=== PATIENT | female | born 1930 | race Hispanic/Latino ===

== ENCOUNTER 2017-03-09 09:34 | Emergency (ER) | payer MEDICARE ==
[2017-03-09 09:46] VITALS: BP 142/56; PULSE 52; RESP 19; TEMP 98.9; O2SAT 95
--- NOTE | 2017-03-09 14:24 | US ---
PROCEDURE: Duplex ultrasound of the left lower extremity arteries. HISTORY: No DP, PT pulses COMPARISON: None available. TECHNIQUE: Grayscale and duplex Doppler evaluation of the left common femoral, superficial femoral, popliteal, posterior tibial and dorsalis pedis arteries was performed.. FINDINGS: COMMON FEMORAL ARTERY: Patent. Maximal flow velocity of 130.6 cm/s. SUPERFICIAL FEMORAL ARTERY:Patent. Maximal flow velocity of 146.5 cm/s. POPLITEAL ARTERY:Patent. Maximal flow velocity of 104.9 cm/s. POSTERIOR TIBIAL ARTERY: Patent. Maximal flow velocity of 106.9 cm/s. DORSALIS PEDIS ARTERY: Patent. Maximal flow velocity of 140.6 cm/s. OTHER FINDINGS: None. IMPRESSION: Mildly elevated peak systolic velocities both proximally within AGENCY SERVICE COORDINATOR and SFA as well as distally in the dorsalis pedis artery although no critical stenoses identified. Spectral broadening and monophasic waveforms seen throughout the visualized left lower extremity.
--- NOTE | 2017-03-09 14:31 | ED PDOC ---
Lower Extremity Pain/Injury Time Seen by Provider: 03/09/17 10:16 Chief Complaint (Nursing): Lower Extremity Problem/Injury Chief Complaint (Provider): Left lower leg pain x 1 month History Per: Patient, Family (Son) History/Exam Limitations: no limitations Onset/Duration Of Symptoms: Days Current Symptoms Are (Timing): Still Present Severity: Moderate Pain Scale Rating Of: 8 Additional Complaint(s): Pt states she was seen by her PMD and sent to a vascular surgeon. She states she was told to take NSAIDs and use compression stocking. Pt states the mediation is not helping her pain and the pain is so bad she is unable to put the stockings on. Pt saw the vascular specialist and told to come to the ER for arterial duplex of the left lower leg. Pt states she was seen in ER a few weeks ago and US of the vein was normal. No acute worsening pain. Past Medical History Reviewed: Historical Data, Nursing Documentation, Vital Signs Vital Signs: Last Vital Signs Temp 98.9 F 03/09/17 09:45 Pulse 52 L 03/09/17 09:45 Resp 19 03/09/17 09:45 BP 142/56 L 03/09/17 09:45 Pulse Ox 95 03/09/17 09:45 - Medical History PMH: CAD, HTN, Hypercholesterolemia, Hypothyroidism Denies: Chronic Kidney Disease - Surgical History Surgical History: No Surg Hx - Family History Family History: States: Unknown Family Hx - Living Arrangements Living Arrangements: With Family - Social History Current smoker - smoking cessation education provided: No Alcohol: None Drugs: Denies - Home Medications Home Medications: Ambulatory Orders Medication Instructions Recorded Alendronate [Fosamax] 70 mg PO QWK 11/07/14 Ca Pantothenate/Folic Acid/V [Once 1 tab PO DAILY 11/07/14 Daily Multi-Vitamin] Calcitriol 0.25 mcg PO TID 11/07/14 Calcium/Vitamin D [Calcium + D 600 1 tab PO BID 11/07/14 mg-200 Iu] Gabapentin [Neurontin] 100 mg PO HS 11/07/14 Levothyroxine [Synthroid] 100 mcg PO DAILY 11/07/14 Metoprolol Tartrate [Lopressor] 25 mg PO BID 11/07/14 Omeprazole [Prilosec] 20 mg PO DAILY PRN 11/07/14 Orlistat [Xenical] 120 mg PO HS 11/07/14 Simvastatin 10 mg PO HS 11/07/14 amLODIPine [Norvasc] 5 mg PO DAILY 11/07/14 Aspirin [Ecotrin] 81 mg PO DAILY #0 tabec 11/14/14 Benzonatate [Tessalon Perles] 100 mg PO TID PRN #0 sgl 11/14/14 Promethazine/Codeine 10 ml PO Q6 PRN #0 udc 11/14/14 [Phenergan/Codeine Oral Syrup] Oseltamivir [Tamiflu] 75 mg PO BID #10 cap 07/04/15 Sulfamethoxazole/Trimethoprim 1 tab PO BID #14 tab 07/04/15 [Bactrim DS 800 mg-160 mg] Cephalexin [Keflex] 500 mg PO TID #21 capsule 01/03/16 Ibuprofen [Motrin Tab] 600 mg PO Q6 PRN #15 tab 01/03/16 traMADol [Ultram] 50 mg PO Q6H PRN #15 tab 03/09/17 - Allergies Allergies/Adverse Reactions: Allergies Allergy/AdvReac Type Severity Reaction Status Date / Time No Known Allergies Allergy Verified 07/04/15 21:54 Review of Systems ROS Statement: Except As Marked, All Systems Reviewed And Found Negative Constitutional: Negative for: Fever, Chills Cardiovascular: Negative for: Chest Pain, Palpitations Respiratory: Negative for: Cough, Shortness of Breath Gastrointestinal: Negative for: Nausea, Vomiting Musculoskeletal: Positive for: Leg Pain (mild swelling ). Negative for: Neck Pain Skin: Negative for: Rash Physical Exam - Reviewed Nursing Documentation Reviewed: Yes Vital Signs Reviewed: Yes - Physical Exam Appears: Positive for: Well, Non-toxic, No Acute Distress Head Exam: Positive for: ATRAUMATIC, NORMAL INSPECTION, NORMOCEPHALIC Skin: Positive for: Normal Color, Warm, DRY Eye Exam: Positive for: Normal appearance ENT: Positive for: Normal ENT Inspection Neck: Positive for: Normal, Painless ROM Cardiovascular/Chest: Positive for: Regular Rate, Rhythm Respiratory: Positive for: Normal Breath Sounds. Negative for: Accessory Muscle Use, Respiratory Distress Pulses-Dorsalis Pedis (L): 0 Pulses-Post. Tibialis (L): 0 Back: Positive for: Normal Inspection Extremity: Positive for: Normal ROM, Swelling (Mild edema, left lower leg/ankle - No calf tenderness ). Negative for: Tenderness, Deformity Neurologic/Psych: Positive for: Alert, Oriented - ECG O2 Sat by Pulse Oximetry: 95 Pulse Ox Interpretation: Normal Medical Decision Making Medical Decision Making: US report reviewed with Dr. Curtis. Disposition - Clinical Impression Clinical Impression: PVD (peripheral vascular disease) - Patient ED Disposition Is Patient to be Admitted: No Counseled Patient/Family Regarding: Diagnosis, Need For Followup, Rx Given - Disposition Disposition: Routine/Home Disposition Time: 14:31 Condition: GOOD Additional Instructions: Please follow-up with vascular surgeon. Prescriptions: traMADol [Ultram] 50 mg PO Q6H PRN #15 tab PRN Reason: Pain Instructions: Peripheral Vascular Disease (ED)
== END 2017-03-09 14:40 | disposition home or self-care (01) ==
LOC: H.ER 09:34
DX: I73.9 Peripheral vascular disease, unspecified (principal); E78.00 Pure hypercholesterolemia, unspecified; I10 Essential (primary) hypertension; E03.9 Hypothyroidism, unspecified; I25.10 Atherosclerotic heart disease of native coronary artery without angina pectoris; Z79.82 Long term (current) use of aspirin

== ENCOUNTER 2017-04-06 09:05 | Inpatient (IN) | payer MEDICARE ==
[2017-04-06 09:19] VITALS: BMI 24.8
--- NOTE | 2017-04-06 09:46 | ED PDOC ---
HPI: CCC, URI, Sore Throat Time Seen by Provider: 04/06/17 09:27 Chief Complaint (Nursing): Cough, Cold, Congestion Chief Complaint (Provider): Cough, Shortness Of Breath History Per: Patient History/Exam Limitations: no limitations Onset/Duration Of Symptoms: Hrs (x 12) Current Symptoms Are (Timing): Still Present Additional Complaint(s): Jia is an 86 y/o female with a history of peripheral artery disease and asthma who presents to the ED because of coughing since last night with associated shortness of breath. Patient denies fever or chills and notes that her cough is dry. She has no other complaints at this time. PMD: Cosme Hernandez Past Medical History Reviewed: Historical Data, Nursing Documentation, Vital Signs Vital Signs: Last Vital Signs Temp 98.2 F 04/06/17 09:30 Pulse 73 04/06/17 09:30 Resp 18 04/06/17 09:30 BP 180/80 H 04/06/17 09:30 Pulse Ox 99 04/06/17 09:55 - Medical History PMH: CAD, HTN, Hypercholesterolemia, Hypothyroidism Denies: Chronic Kidney Disease - Family History Family History: States: No Known Family Hx - Living Arrangements Living Arrangements: With Family (son) - Social History Current smoker - smoking cessation education provided: No (lives with son who smokes) Alcohol: None Drugs: Denies - Home Medications Home Medications: Ambulatory Orders Medication Instructions Recorded Ca Pantothenate/Folic Acid/V [Once 1 tab PO DAILY 11/07/14 Daily Multi-Vitamin] Calcitriol 0.25 mcg PO TID 11/07/14 Calcium/Vitamin D [Calcium + D 600 1 tab PO BID 11/07/14 mg-200 Iu] Gabapentin [Neurontin] 100 mg PO HS 11/07/14 Levothyroxine [Synthroid] 100 mcg PO DAILY 11/07/14 Metoprolol Tartrate [Lopressor] 25 mg PO BID 11/07/14 Omeprazole [Prilosec] 20 mg PO DAILY PRN 11/07/14 Orlistat [Xenical] 120 mg PO HS 11/07/14 Simvastatin 10 mg PO HS 11/07/14 amLODIPine [Norvasc] 5 mg PO DAILY 11/07/14 Aspirin [Ecotrin] 81 mg PO DAILY #0 tabec 11/14/14 Benzonatate [Tessalon Perles] 100 mg PO TID PRN #0 sgl 11/14/14 Ibuprofen [Motrin Tab] 600 mg PO Q6 PRN #15 tab 01/03/16 traMADol [Ultram] 50 mg PO Q6H PRN #15 tab 03/09/17 Alendronate Sodium [Binosto] 70 mg PO QWK 04/06/17 Celecoxib [CeleBREX] 100 mg PO DAILY 04/06/17 Tramadol HCl/Acetaminophen 1 tab PO DAILY PRN 04/06/17 [Acetaminophen-Tramadol HCl 325 mg-37.5 mg] - Allergies Allergies/Adverse Reactions: Allergies Allergy/AdvReac Type Severity Reaction Status Date / Time No Known Allergies Allergy Verified 07/04/15 21:54 Review of Systems ROS Statement: Except As Marked, All Systems Reviewed And Found Negative Constitutional: Negative for: Fever, Chills Cardiovascular: Negative for: Chest Pain Respiratory: Positive for: Cough (dry), Shortness of Breath Physical Exam - Reviewed Nursing Documentation Reviewed: Yes Vital Signs Reviewed: Yes - Physical Exam Appears: Positive for: No Acute Distress Head Exam: Positive for: ATRAUMATIC, NORMAL INSPECTION, NORMOCEPHALIC Skin: Positive for: Normal Color, Warm, Dry. Negative for: Rash Neck: Positive for: Normal, Painless ROM, Supple Cardiovascular/Chest: Positive for: Regular Rate, Rhythm Respiratory: Positive for: Normal Breath Sounds (good air entry b/l). Negative for: Rales, Wheezing, Respiratory Distress Gastrointestinal/Abdominal: Positive for: Soft. Negative for: Tenderness Extremity: Negative for: Pedal Edema Neurologic/Psych: Positive for: Alert, Oriented. Negative for: Motor/Sensory Deficits - Laboratory Results Result Diagrams: 04/06/17 10:00 04/06/17 10:00 - ECG O2 Sat by Pulse Oximetry: 99 (RA) Pulse Ox Interpretation: Normal Medical Decision Making Medical Decision Making: Time: 9:36 Initial Impression: Cough; Rule out bronchitis, pneumonia Initial Plan: --EKG --BNP --BMP --Troponin --CBC --Chest XR --Flu Swab Scribe Attestation: Documented by Freddie Paredes, acting as a scribe for Dr. Sapna Farmer MD. Provider Scribe Attestation: All medical record entries made by the Scribe were at my direction and personally dictated by me. I have reviewed the chart and agree that the record accurately reflects my personal performance of the history, physical exam, medical decision making, and the department course for this patient. I have also personally directed, reviewed, and agree with the discharge instructions and disposition. 10.30a Troponin 0.3; flu positive; EKG LBBB unchanged from previous; CXR is normal; Case d/w Dr. Guallpa. Admit to telemetry for 24 hours; Case d/w Dr. Henry for admission (covering for Dr. Hernandez) Disposition - Clinical Impression Clinical Impression: Influenza A, Non-STEMI (non-ST elevated myocardial infarction) - Patient ED Disposition Is Patient to be Admitted: Yes Doctor Will See Patient In The: Hospital - Disposition Disposition: Transfer of Care Disposition Time: 11:06 Condition: FAIR Forms: [employer] (Bengali) - Pt Status Changed To: Hospital Disposition Of: Observation - POA Present On Arrival: None
[2017-04-06 10:09] LABS: BASO % 0.6 % (0.0-2.0); EOS # 0.1 K/uL (0.0-0.7); HEMOGLOBIN 14.5 g/dL (12.0-16.0); LYMPH # 0.6 K/uL (1.0-4.3); LYMPH % 10.1 % (20.0-40.0); MEAN CORPUSCULAR HEMOGLOBIN 30.8 pg (27.0-31.0); MEAN CORPUSCULAR HGB CONC 33.9 g/dL (33.0-37.0); MEAN PLATELET VOLUME 8.3 fl (7.2-11.7); MONO # 0.6 K/uL (0.0-0.8); MONO % 10.5 % (0.0-10.0); NEUT # 4.7 K/uL (1.8-7.0); NEUT % 76.8 % (50.0-75.0); RBC 4.72 Mil/uL (3.80-5.20); RED CELL DISTRIBUTION WIDTH 13.1 % (11.5-14.5); WHITE BLOOD COUNT 6.1 K/uL (4.8-10.8)
--- NOTE | 2017-04-06 10:13 | RAD ---
HISTORY: cough, dyspnea COMPARISON: 05/17/2016 TECHNIQUE: Chest PA and lateral FINDINGS: LUNGS: No active pulmonary disease. . No infiltrate PLEURA: No significant pleural effusion identified. No pneumothorax apparent. CARDIOVASCULAR: Cardiomegaly. No gross pulmonary venous congestion. Midline sternotomy and a valve prosthesis noted. Mitral annular calcifications present OSSEOUS STRUCTURES: T10 and T11 anterior osteoporotic type compression fractures without retropulsion of ossific fragments into the posterior spinal canal are suggested. This appearance is stable since 05/17/2016 Midline sternotomy wires in place VISUALIZED UPPER ABDOMEN: Normal. OTHER FINDINGS: None. IMPRESSION: No interval pathology noted
[2017-04-06 10:18] LABS: BLOOD UREA NITROGEN 15 mg/dl (7-17); CALCIUM 8.7 mg/dL (8.4-10.2); GFR AFRICAN-AMERICAN > 60; GFR NON-AFRICAN AMERICAN > 60
[2017-04-06 10:34] LABS: B-TYPE NATRIURETIC PEPTIDE 1990 pg/ml (0-900)
[2017-04-06] MEDS ORDERED: TRAMADOL HCL PO PRN (13:35)
[2017-04-06] MEDS ORDERED: ACETAMINOPHEN PO PRN (13:35)
--- NOTE | 2017-04-06 14:04 | CARD ---
APPROVED REPORT EKG Measurement Heart [id number] <Conclusion> Normal sinus rhythm Left bundle branch block Abnormal ECG
--- NOTE | 2017-04-06 20:20 | CP.PCM.CON ---
History of Present Illness - History of Present Illness History of Present Illness: THE PATIENT IS AN 86 YEAR OLD FEMALE KNOWN TO ME FROM MY OFFICE PRACTICE AND PRIOR [facility] ADMISSIONS. 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 SHE WAS ADMITTED TO [facility] FOR THE FLU IN 2014 AND I WAS CALLED TO SEE HER FOR MILDLY ELEVATED TROPONINS. I WAS CALLED AT THIS TIME FOR THE SAME REASON. SHE HAD NORMAL CORONARY ARTERIES ON HER CARDIAC CATH PRIOR TO HER AVR 5 YEARS AGO AND NEVER HAD A KNOWN UT AND DOESN'T HAVE ANGINA. HER BASELINE LUNG STATUS IS THAT SHE GETS SOB WITH EVEN MINIMAL EXERTION. SHE PRESENTLY STATES THAT FOR ABOUT A WEEK NOW SHE WAS SOB MORE THAN USUAL FOR FOR THE PAST FEW DAYS HAS HAD A COUGH WITH SOME PRODUCTION, TIREDNESS AND SHE HAD A FEVER LAST NIGHT. SHE WASN'T FEELING BETTER TODAY AND WENT TO THE ER FOR THESE COMPLAINTS AND A NOSE SWAB WAS POSITIVE FOR INFLUENZA ANS SHE WAS ADMITTED. Past Patient History - Past Medical History & Family History Past Medical History?: Yes - Past Social History Smoking Status: Never Smoked - CARDIAC Hx Cardiac Disorders: Yes Hx Hypercholesterolemia: Yes Hx Hypertension: Yes - PULMONARY Hx Respiratory Disorders: No - NEUROLOGICAL Hx Neurological Disorder: No - HEENT Hx HEENT Problems: Yes Hx Cataracts: Yes - RENAL Hx Chronic Kidney Disease: No - ENDOCRINE/METABOLIC Hx Hypothyroidism: Yes - HEMATOLOGICAL/ONCOLOGICAL Hx Blood Disorders: No - INTEGUMENTARY Hx Dermatological Problems: No - MUSCULOSKELETAL/RHEUMATOLOGICAL Hx Falls: No Hx Osteoporosis: Yes (with fracture) - GASTROINTESTINAL Hx Gastrointestinal Disorders: No - GENITOURINARY/GYNECOLOGICAL Hx Genitourinary Disorders: No - PSYCHIATRIC Hx Psychophysiologic Disorder: No Hx Substance Use: No - SURGICAL HISTORY Hx Surgeries: Yes Hx Cataract Extraction: Yes Hx Cardiac Catheterization: Yes Hx Joint Replacement: Yes (r hip) Hx Valve Replacement: Yes Other/Comment: cardiac valve replacement - ANESTHESIA Hx Anesthesia: Yes Hx Anesthesia Reactions: No Hx Malignant Hyperthermia: No Meds Allergies/Adverse Reactions: Allergies Allergy/AdvReac Type Severity Reaction Status Date / Time No Known Allergies Allergy Verified 07/04/15 21:54 - Medications Medications: Current Medications Amlodipine Besylate (Norvasc) 5 mg PO DAILY [facility] Calcitriol (Rocaltrol) 0.25 mcg PO TID [facility] Last Admin: 04/06/17 17:34 Dose: 0.25 mcg Calcium/Vitamin D (Oyster Shell Calcium/Vitamin D 500 Mg-200 Iu) 1 tab PO DAILY [facility] Enoxaparin Sodium (Lovenox) 30 mg SC DAILY [facility] PRN Reason: Protocol Gabapentin (Neurontin) 100 mg PO HS [facility] Home Med (Tramadol Hcl/Acetaminophen [Tramadol-Acetaminophn 37.5-325]) 1 tab PO DAILY PRN PRN Reason: Pain, severe (8-10) Levothyroxine Sodium (Synthroid) 100 mcg PO DAILY [facility] Metoprolol Tartrate (Lopressor) 25 mg PO BID [facility] Last Admin: 04/06/17 17:33 Dose: 25 mg Ondansetron HCl (Zofran Inj) 4 mg IVP Q6 PRN PRN Reason: Nausea/Vomiting Oseltamivir Phosphate (Tamiflu Cap) 75 mg PO BID [facility] PRN Reason: Protocol Last Admin: 04/06/17 17:33 Dose: 75 mg Pantoprazole Sodium (Protonix Ec Tab) 40 mg PO DAILY PRN PRN Reason: Heartburn Pneumococcal Polyvalent Vaccine (Pneumovax 23 Vaccine) 0.5 ml IM .ONCE ONE Stop: 04/09/17 09:01 Pravastatin Sodium (Pravachol) 20 mg PO [facility] Physical Exam - Respiratory Exam Additional comments: MILD WHEEZING AND RONCHI BILAT - Cardiovascular Exam Cardiovascular Exam: REGULAR RHYTHM, +S1, +S2 - Extremities Exam Additional comments: NO LE EDEMA - Additional Findings Additional findings: EKG NSR, R 66, LBBB(OLD FINDING) TROPONINS 0.3 AND 0.27 Results - Vital Signs Recent Vital Signs: Last Vital Signs Temp 98.6 F 04/06/17 19:31 Pulse 63 04/06/17 19:31 Resp 20 04/06/17 19:31 BP 166/81 H 04/06/17 19:31 Pulse Ox 96 04/06/17 19:31 - Labs Result Diagrams: 04/06/17 10:00 04/06/17 10:00 Labs: Laboratory Results - last 24 hr 04/06/17 04/06/17 04/06/17 10:00 10:00 10:00 WBC 6.1 RBC 4.72 Hgb 14.5 Hct 42.9 MCV 91.0 MCH 30.8 MCHC 33.9 RDW 13.1 Plt Count 173 MPV 8.3 Neut % (Auto) 76.8 H Lymph % (Auto) 10.1 L [place] % (Auto) 10.5 H Eos % (Auto) 2.0 Baso % (Auto) 0.6 Neut # (Auto) 4.7 Lymph # (Auto) 0.6 L [place] # (Auto) 0.6 Eos # (Auto) 0.1 Baso # (Auto) 0.0 Sodium 141 Potassium 3.9 Chloride 100 Carbon Dioxide 29 Anion Gap 16 BUN 15 Creatinine 0.6 L Est GFR ( Amer) > 60 Est GFR (Non-Af Amer) > 60 Random Glucose 106 H Calcium 8.7 Troponin I 0.3010 H* NT-Pro-B Natriuret Pep 1989 H Influenza Typ A,B (EIA) Pos for influenza a H 04/06/17 18:08 WBC RBC Hgb Hct MCV MCH MCHC RDW Plt Count MPV Neut % (Auto) Lymph % (Auto) [place] % (Auto) Eos % (Auto) Baso % (Auto) Neut # (Auto) Lymph # (Auto) [place] # (Auto) Eos # (Auto) Baso # (Auto) Sodium Potassium Chloride Carbon Dioxide Anion Gap BUN Creatinine Est GFR ( Amer) Est GFR (Non-Af Amer) Random Glucose Calcium Troponin I 0.2740 H* NT-Pro-B Natriuret Pep Influenza Typ A,B (EIA) Assessment & Plan - Assessment and Plan (Free Text) Assessment: INFLUENZA AORTIC AORTIC VALVE REPLACEMENT FOR AORTIC STENOSIS HYPERTENSION HYPERLIPIDEMIA CHRONIC LUNG DISEASE HYPOTHYROIDISM CHRONIC MILDLY ELEVATED TROPONIN MOST LIKELY NON-CARDIAC SHE HAD NORMAL CORONARY ARTERIES ON HER CARDIAC CATH 5 YEARS AGO AND DOESN'T HAVE ANGINA Plan: SHE WAS ADMITTED TO ON TELEMETRY SHE IS ON TAMIFLU, METOPROLOL, AMLODIPINE, PRAVACHOL, LEVOTHYROXINE AND LOVENOX SHE WAS GIVEN ASPIRIN AND BRILINTA IN THE ER WILL CONTINUE ASPIRIN WILL RECOMMEND A PHARMACOLOGICAL STRESS TEST FOR HER IN THE NEAR FUTURE AFTER SHE HAS RECOVERED FROM THE FLU
[2017-04-06] MEDS: Pantoprazole 40 mg EC Tab PO PRN (21:50)
[2017-04-06] MEDS: Pravastatin Sodium 20 MG TAB PO SCH (22:00)
--- NOTE | 2017-04-07 07:42 | CP.PCM.HP ---
<Rik Mccarthy - Last Filed: 04/07/17 07:48> History of Present Illness - History of Present Illness History of Present Illness: 86 year old female presents to the ED with a complaint of shortness of breath. The patient has a past medical history of hypertension, aortic valve replacement , chronic lung disease, and hypothyroidism. The SOB has been present for the past 8-9 months and recently its been getting progressively worse. The patient is able to walk 1 block and starts experiencing SOB. Patient denies any chest pain, nausea, vomiting, or palpitations. PMD: Dr. Cosme Batres Specialist: Dr. hastings- paper plate machine tender Electron Beam Machine Welder Setter: Dr. Barkley FMHx: mother had dementia- ; father had lung cancer- SurgHx: aortic valve replacement, thyroid surgery, right hip surgery 3 years ago SocHx: non smoker, no alcohol, no drugs Medications: were reviewed and reconciled Allergies: NKDA Present on Admission - Present on Admission Any Indicators Present on Admission: No Past Patient History - Past Medical History & Family History Past Medical History?: Yes - Past Social History Smoking Status: Never Smoked - CARDIAC Hx Cardiac Disorders: Yes Hx Hypercholesterolemia: Yes Hx Hypertension: Yes - PULMONARY Hx Respiratory Disorders: No - NEUROLOGICAL Hx Neurological Disorder: No - HEENT Hx HEENT Problems: Yes Hx Cataracts: Yes - RENAL Hx Chronic Kidney Disease: No - ENDOCRINE/METABOLIC Hx Hypothyroidism: Yes - HEMATOLOGICAL/ONCOLOGICAL Hx Blood Disorders: No - INTEGUMENTARY Hx Dermatological Problems: No - MUSCULOSKELETAL/RHEUMATOLOGICAL Hx Falls: No Hx Osteoporosis: Yes (with fracture) - GASTROINTESTINAL Hx Gastrointestinal Disorders: No - GENITOURINARY/GYNECOLOGICAL Hx Genitourinary Disorders: No - PSYCHIATRIC Hx Psychophysiologic Disorder: No Hx Substance Use: No - SURGICAL HISTORY Hx Surgeries: Yes Hx Cataract Extraction: Yes Hx Cardiac Catheterization: Yes Hx Joint Replacement: Yes (r hip) Hx Valve Replacement: Yes Other/Comment: cardiac valve replacement - ANESTHESIA Hx Anesthesia: Yes Hx Anesthesia Reactions: No Hx Malignant Hyperthermia: No Meds Allergies/Adverse Reactions: Allergies Allergy/AdvReac Type Severity Reaction Status Date / Time No Known Allergies Allergy Verified 07/04/15 21:54 Physical Exam - Constitutional Appears: No Acute Distress - Head Exam Head Exam: NORMAL INSPECTION - Eye Exam Eye Exam: Normal appearance - ENT Exam ENT Exam: Mucous Membranes Moist - Respiratory Exam Respiratory Exam: Clear to Auscultation Bilateral, NORMAL BREATHING PATTERN. absent: Rhonchi, Wheezes - Cardiovascular Exam Cardiovascular Exam: REGULAR RHYTHM, +S1, +S2, Systolic Murmur - GI/Abdominal Exam GI & Abdominal Exam: Normal Bowel Sounds, Soft. absent: Tenderness - Extremities Exam Extremities exam: Positive for: normal capillary refill. Negative for: calf tenderness, pedal edema Additional comments: Left lower extremity erythematous (chronic) Results - Vital Signs Recent Vital Signs: Last Vital Signs Temp 99.9 F H 04/07/17 05:00 Pulse 73 04/07/17 05:00 Resp 20 04/07/17 05:00 BP 146/79 04/07/17 05:00 Pulse Ox 99 04/07/17 05:00 - Labs Result Diagrams: 04/06/17 10:00 04/06/17 10:00 Labs: Laboratory Results - last 24 hr 04/06/17 04/06/17 04/06/17 10:00 10:00 10:00 WBC 6.1 RBC 4.72 Hgb 14.5 Hct 42.9 MCV 91.0 MCH 30.8 MCHC 33.9 RDW 13.1 Plt Count 173 MPV 8.3 Neut % (Auto) 76.8 H Lymph % (Auto) 10.1 L [place] % (Auto) 10.5 H Eos % (Auto) 2.0 Baso % (Auto) 0.6 Neut # (Auto) 4.7 Lymph # (Auto) 0.6 L [place] # (Auto) 0.6 Eos # (Auto) 0.1 Baso # (Auto) 0.0 Sodium 141 Potassium 3.9 Chloride 100 Carbon Dioxide 29 Anion Gap 16 BUN 15 Creatinine 0.6 L Est GFR ( Amer) > 60 Est GFR (Non-Af Amer) > 60 Random Glucose 106 H Calcium 8.7 Troponin I 0.3010 H* NT-Pro-B Natriuret Pep 1990 H Influenza Typ A,B (EIA) Pos for influenza a H 04/06/17 04/07/17 18:08 02:25 WBC RBC Hgb Hct MCV MCH MCHC RDW Plt Count MPV Neut % (Auto) Lymph % (Auto) [place] % (Auto) Eos % (Auto) Baso % (Auto) Neut # (Auto) Lymph # (Auto) [place] # (Auto) Eos # (Auto) Baso # (Auto) Sodium Potassium Chloride Carbon Dioxide Anion Gap BUN Creatinine Est GFR ( Amer) Est GFR (Non-Af Amer) Random Glucose Calcium Troponin I 0.2740 H* 0.2610 H* NT-Pro-B Natriuret Pep Influenza Typ A,B (EIA) Assessment & Plan - Assessment and Plan (Free Text) Assessment: 86 YO F admitted for elevated troponin and flu positive 1) Flu like symptoms - Influenza positive - Tamiflu 75 mg BID x 5 days - Afebrile 2) Elevated troponin - trending down : .3,.27.26 - h/o of elevated tropinin, no chest pain - F/U with Echo results - Cardio consult appreciated - Stress test out patient after patient has recovered from flu 3) DVT prophylaxis Lovenox <Oliverio Henry - Last Filed: 04/11/17 19:37> Results - Vital Signs Recent Vital Signs: Last Vital Signs Temp 97.9 F 04/11/17 19:21 Pulse 63 04/11/17 19:21 Resp 20 04/11/17 19:21 BP 154/74 H 04/11/17 19:21 Pulse Ox 98 04/11/17 19:21 - Labs Result Diagrams: 04/11/17 04:25 04/11/17 04:25 Labs: Laboratory Results - last 24 hr 04/11/17 04/11/17 04/11/17 04:25 04:25 13:20 WBC 4.4 L RBC 4.19 Hgb 12.9 Hct 38.4 MCV 91.7 MCH 30.8 MCHC 33.6 RDW 13.1 Plt Count 151 Sodium 142 Potassium 4.2 Chloride 101 Carbon Dioxide 30 Anion Gap 15 BUN 22 H Creatinine 0.7 Est GFR ( Amer) > 60 Est GFR (Non-Af Amer) > 60 Random Glucose 88 Calcium 8.8 Total Bilirubin 0.6 AST 24 ALT 53 H Alkaline Phosphatase 47 Total Protein 6.6 Albumin 3.5 Globulin 3.1 Albumin/Globulin Ratio 1.2 Urine Color Yellow Urine Clarity Clear Urine pH 6.0 Ur Specific [place] 1.009 Urine Protein Negative Urine Glucose (UA) Neg Urine Ketones Negative Urine Blood Negative Urine Nitrate Negative Urine Bilirubin Negative Urine Urobilinogen 0.2-1.0 Ur Leukocyte Esterase Small Urine RBC (Auto) < 1 Urine Microscopic WBC 7 H Urine Bacteria Rare Assessment & Plan - Assessment and Plan (Free Text) Plan: I was present during evaluation and discussed with Dr Mccarthy re plans of care and mgt. Oliverio Henry M.D.
[2017-04-07] MEDS: Enoxaparin 30 mg Syringe SC SCH (08:45)
[2017-04-07] MEDS: Calcium-Vit D 500 mg-200 Units Tab UD PO SCH (08:46)
[2017-04-07] MEDS: Levothyroxine 100 MCG TAB PO SCH (08:47)
[2017-04-07 09:55] LABS: HEMOGLOBIN 13.9 g/dL (12.0-16.0); MEAN CELL VOLUME 90.6 fl (81.0-99.0); MEAN CORPUSCULAR HEMOGLOBIN 31.5 pg (27.0-31.0); MEAN CORPUSCULAR HGB CONC 34.8 g/dL (33.0-37.0); RBC 4.42 Mil/uL (3.80-5.20); RED CELL DISTRIBUTION WIDTH 13.3 % (11.5-14.5); WHITE BLOOD COUNT 5.6 K/uL (4.8-10.8)
--- NOTE | 2017-04-07 09:57 | CP.PCM.PN ---
Subjective - Date & Time of Evaluation Date of Evaluation: 04/07/17 Time of Evaluation: 08:45 - Subjective Subjective: NO NEW COMPLAINTS Objective - Vital Signs/Intake and Output Vital Signs (last 24 hours): Temp Pulse Resp BP Pulse Ox 98.7 F 67 20 144/84 95 04/07/17 08:00 04/07/17 08:45 04/07/17 08:00 04/07/17 08:45 04/07/17 08:00 - Medications Medications: Current Medications Amlodipine Besylate (Norvasc) 5 mg PO DAILY [facility] Last Admin: 04/07/17 08:45 Dose: 5 mg Aspirin (Ecotrin) 81 mg PO DAILY [facility] Last Admin: 04/07/17 08:44 Dose: 81 mg Calcitriol (Rocaltrol) 0.25 mcg PO TID [facility] Last Admin: 04/07/17 08:46 Dose: 0.25 mcg Calcium/Vitamin D (Oyster Shell Calcium/Vitamin D 500 Mg-200 Iu) 1 tab PO DAILY [facility] Last Admin: 04/07/17 08:46 Dose: 1 tab Enoxaparin Sodium (Lovenox) 30 mg SC DAILY [facility] PRN Reason: Protocol Last Admin: 04/07/17 08:45 Dose: 30 mg Gabapentin (Neurontin) 100 mg PO HS [facility] Last Admin: 04/06/17 21:49 Dose: 100 mg Home Med (Tramadol Hcl/Acetaminophen [Tramadol-Acetaminophn 37.5-325]) 1 tab PO DAILY PRN PRN Reason: Pain, severe (8-10) Levothyroxine Sodium (Synthroid) 100 mcg PO DAILY [facility] Last Admin: 04/07/17 08:47 Dose: 100 mcg Metoprolol Tartrate (Lopressor) 25 mg PO BID [facility] Last Admin: 04/07/17 08:44 Dose: 25 mg Ondansetron HCl (Zofran Inj) 4 mg IVP Q6 PRN PRN Reason: Nausea/Vomiting Oseltamivir Phosphate (Tamiflu Cap) 75 mg PO BID [facility] PRN Reason: Protocol Last Admin: 04/07/17 08:47 Dose: 75 mg Pantoprazole Sodium (Protonix Ec Tab) 40 mg PO DAILY PRN PRN Reason: Heartburn Last Admin: 04/06/17 21:50 Dose: 40 mg Pneumococcal Polyvalent Vaccine (Pneumovax 23 Vaccine) 0.5 ml IM .ONCE ONE Stop: 04/09/17 09:01 Pravastatin Sodium (Pravachol) 20 mg PO HS [facility] Last Admin: 04/06/17 22:00 Dose: 20 mg - Labs Labs: 04/06/17 10:00 04/06/17 10:00 - Respiratory Exam Additional comments: MILD RONCHI - Cardiovascular Exam Cardiovascular Exam: REGULAR RHYTHM, +S1, +S2 - Additional Findings Additional findings: [employer] SINUS RHYTHM Assessment and Plan - Assessment and Plan (Free Text) Assessment: INFLUENZA S/P AVR HYPERTENSION CHRONIC LUNG DISEASE Plan: CONTINUE TAMIFLU, METOPROLOL, AMLODIPINE, PRAVACHOL, LOVENOX
[2017-04-07 10:20] LABS: ALB/GLOB RATIO 1.2 (1.0-2.1); ALBUMIN 3.9 g/dL (3.5-5.0); ALT/SGPT 42 U/L (9-52); AST/SGOT 40 U/L (14-36); BLOOD UREA NITROGEN 19 mg/dl (7-17); CALCIUM 8.3 mg/dL (8.4-10.2); GFR AFRICAN-AMERICAN > 60; GFR NON-AFRICAN AMERICAN > 60
[2017-04-07] MEDS ORDERED: Potassium Chloride 20 mEq ER Tab PO ONE (10:45)
--- NOTE | 2017-04-07 10:47 | CARD ---
APPROVED REPORT EKG Measurement Heart [id number] 140P4 [id number] <Conclusion> Normal sinus rhythm Left bundle branch block Abnormal ECG
[2017-04-07] MEDS ORDERED: Albuterol-Ipratrop 3 mg / 0.5 (3 ml) UD INH PRN (14:08)
[2017-04-07] MEDS ORDERED: Albuterol-Ipratrop 3 mg / 0.5 (3 ml) UD INH STA (14:08)
--- NOTE | 2017-04-07 15:44 | CP.PCM.CON ---
History of Present Illness - History of Present Illness History of Present Illness: Asked to evaluate this 86 year old female who was admitted with congested cough , chills and sweats at home. Symptoms had been worsening over the two days prior to admission. No fever documented, no chest pain, no headache of body aches. Stuffy nose + with mucoid secretions and sore throat. No epistaxis, no voice change, no known ill contacts. Influenza A positive in the emergency room , chest x-ray without infiltrate of effusion, but does have increased bronchovascular markings. She does claim that she has had long-standing dyspnea on exertion, able to ambulate comfortably only one city block. 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 She had been placed on a long- acting beta agonist/inhaled corticosteroid at that time, but did not return for follow-up. 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 She does have a long-standing complaint of discomfort in the lower extremities and has had some vascular workup which appears grossly unremarkable. There is no history of coronary artery disease, diabetes, tuberculosis, liver disease or renal disease. There is no history of bleeding disorder or seizure disorder. Past surgical history includes a right hip fracture approximately 10 years ago followed by repeat fracture with right hip arthroplasty 3 years ago. Bioprosthetic aortic valve replacement was done about 2 years ago. A subtotal thyroidectomy. Allergies: No known drug or seasonal allergies. Family history: Fatherlung cancer. Motherheart disease. One brothercerebrovascular accident. One sister with appendicitis and peritonitis. Social history: Never smoker. No alcohol. Denies illicit drug use. Past Patient History - Past Medical History & Family History Past Medical History?: Yes - Past Social History Smoking Status: Never Smoked - CARDIAC Hx Cardiac Disorders: Yes Hx Hypercholesterolemia: Yes Hx Hypertension: Yes - PULMONARY Hx Respiratory Disorders: No - NEUROLOGICAL Hx Neurological Disorder: No - HEENT Hx HEENT Problems: Yes Hx Cataracts: Yes - RENAL Hx Chronic Kidney Disease: No - ENDOCRINE/METABOLIC Hx Hypothyroidism: Yes - HEMATOLOGICAL/ONCOLOGICAL Hx Blood Disorders: No - INTEGUMENTARY Hx Dermatological Problems: No - MUSCULOSKELETAL/RHEUMATOLOGICAL Hx Falls: No Hx Osteoporosis: Yes (with fracture) - GASTROINTESTINAL Hx Gastrointestinal Disorders: No - GENITOURINARY/GYNECOLOGICAL Hx Genitourinary Disorders: No - PSYCHIATRIC Hx Psychophysiologic Disorder: No Hx Substance Use: No - SURGICAL HISTORY Hx Surgeries: Yes Hx Cataract Extraction: Yes Hx Cardiac Catheterization: Yes Hx Joint Replacement: Yes (r hip) Hx Valve Replacement: Yes Other/Comment: cardiac valve replacement - ANESTHESIA Hx Anesthesia: Yes Hx Anesthesia Reactions: No Hx Malignant Hyperthermia: No Meds Allergies/Adverse Reactions: Allergies Allergy/AdvReac Type Severity Reaction Status Date / Time No Known Allergies Allergy Verified 07/04/15 21:54 - Medications Medications: Current Medications Albuterol/Ipratropium (Duoneb 3 Mg/0.5 Mg (3 Ml) Ud) 3 ml INH RQ6 [facility] Amlodipine Besylate (Norvasc) 5 mg PO DAILY [facility] Last Admin: 04/07/17 08:45 Dose: 5 mg Aspirin (Ecotrin) 81 mg PO DAILY [facility] Last Admin: 04/07/17 08:44 Dose: 81 mg Calcitriol (Rocaltrol) 0.25 mcg PO TID [facility] Last Admin: 04/07/17 15:09 Dose: 0.25 mcg Calcium/Vitamin D (Oyster Shell Calcium/Vitamin D 500 Mg-200 Iu) 1 tab PO DAILY [facility] Last Admin: 04/07/17 08:46 Dose: 1 tab Enoxaparin Sodium (Lovenox) 30 mg SC DAILY [facility] PRN Reason: Protocol Last Admin: 04/07/17 08:45 Dose: 30 mg Gabapentin (Neurontin) 100 mg PO HS [facility] Last Admin: 04/06/17 21:49 Dose: 100 mg Levothyroxine Sodium (Synthroid) 100 mcg PO DAILY [facility] Last Admin: 04/07/17 08:47 Dose: 100 mcg Metoprolol Tartrate (Lopressor) 25 mg PO BID [facility] Last Admin: 04/07/17 08:44 Dose: 25 mg Ondansetron HCl (Zofran Inj) 4 mg IVP Q6 PRN PRN Reason: Nausea/Vomiting Oseltamivir Phosphate (Tamiflu Cap) 75 mg PO BID [facility] PRN Reason: Protocol Last Admin: 04/07/17 08:47 Dose: 75 mg Pantoprazole Sodium (Protonix Ec Tab) 40 mg PO DAILY [facility] PRN Reason: Heartburn Last Admin: 02/14/18 21:50 Dose: 40 mg Pneumococcal Polyvalent Vaccine (Pneumovax 23 Vaccine) 0.5 ml IM .ONCE ONE Stop: 04/09/17 09:01 Pravastatin Sodium (Pravachol) 20 mg PO HS [facility] Last Admin: 04/06/17 22:00 Dose: 20 mg Physical Exam - Additional Findings Additional findings: Well-nourished female seated on the edge of the bed, in no acute distress. A congested but nonproductive cough is noted during the examination. Trace dependent edema is noted at both ankles. Mild increased warmth and erythema is noted on the left ankle. Small superficial varicosities are present in both lower extremities. Neck is supple and trachea is midline. There is a post thyroidectomy scar noted. No neck vein distention or carotid bruit. Conjunctivae are pink and there is no scleral icterus. Nares are patent bilaterally. No bleeding or exudate. The pharynx is pink and mucous membranes are moist. No exudate. No palpable lymphadenopathy. No dullness on chest percussion. Normal vocal tactile fremitus. Equal expansion. Breath sounds appear slightly diminished bilaterally with no rales or wheezes heard. Some rhonchi are appreciated in both lower lobes. No bronchial breathing or egophony. Heart sounds are well heard and rhythm is regular. A systolic ejection murmur is present at the base with a prosthetic aundrea. The abdomen is soft and nontender without organomegaly. Bowel sounds are normal. No calf tenderness or palpable venous cords. No cyanosis. Ankle and foot pulses are absent bilaterally. Results - Vital Signs Recent Vital Signs: Last Vital Signs Temp 98.2 F 04/07/17 12:00 Pulse 56 L 04/07/17 12:00 Resp 20 04/07/17 12:00 BP 140/71 04/07/17 12:00 Pulse Ox 95 04/07/17 12:00 - Labs Result Diagrams: 04/09/17 06:19 04/09/17 06:19 Labs: Laboratory Results - last 24 hr 04/06/17 04/07/17 04/07/17 18:08 02:25 09:44 WBC 5.6 RBC 4.42 Hgb 13.9 Hct 40.0 MCV 90.6 MCH 31.5 H MCHC 34.8 RDW 13.3 Plt Count 158 Sodium Potassium Chloride Carbon Dioxide Anion Gap BUN Creatinine Est GFR ( Amer) Est GFR (Non-Af Amer) Random Glucose Calcium Total Bilirubin AST ALT Alkaline Phosphatase Troponin I 0.2740 H* 0.2610 H* Total Protein Albumin Globulin Albumin/Globulin Ratio 04/07/17 09:44 WBC RBC Hgb Hct MCV MCH MCHC RDW Plt Count Sodium 137 Potassium 3.2 L Chloride 98 Carbon Dioxide 24 Anion Gap 18 BUN 19 H Creatinine 0.6 L Est GFR ( Amer) > 60 Est GFR (Non-Af Amer) > 60 Random Glucose 119 H Calcium 8.3 L Total Bilirubin 0.8 AST 40 H D ALT 42 Alkaline Phosphatase 46 Troponin I Total Protein 7.2 Albumin 3.9 Globulin 3.3 Albumin/Globulin Ratio 1.2 Assessment & Plan (1) Bronchitis with influenza Status: Acute Priority: High (2) Dyspnea on exertion Status: Chronic Priority: High (3) Elevated troponin Status: Acute Priority: High (4) PVD (peripheral vascular disease) Status: Chronic Priority: Medium - Assessment and Plan (Free Text) Plan: Continue present inhalation therapy and supplemental oxygen. Medical treatment for influenza. CT chest requested. - Date & Time Date: 04/07/17 Time: 16:36
[2017-04-07] MEDS: guaiFENesin 600 mg ER Tab PO SCH ×2 (17:59→22:14)
--- NOTE | 2017-04-07 18:20 | CT ---
PROCEDURE: CT Chest without contrast HISTORY: SOB COMPARISON: None. TECHNIQUE: Contiguous axial images were obtained through the chest without intravenous contrast enhancement. Sagittal and coronal reconstructions were performed. High high-resolution algorithm employed Radiation dose (DLP): 430.56 mGy-cm. This CT exam was performed using one or more of the following dose reduction techniques: Automated exposure control, adjustment of the mA and/or kV according to patient size, and/or use of iterative reconstruction technique. FINDINGS: LUNGS: No suspicious pulmonary nodules, masses or infiltrates. Incidental finding: Diffuse calcifications affecting the wall of the entire tracheobronchial tree MEDIASTINUM: Unremarkable thoracic aorta. No aneurysm. Normal sized heart. Main pulmonary artery unremarkable. No vascular congestion. No lymphadenopathy. PLEURA: No pleural fluid. No pneumothorax. BONES: No fracture. No destructive lesion. UPPER ABDOMEN: Gy sternal wall mass incompletely visualized upper pole left kidney 5.1 x 3.7 cm. Elective followup recommended there with multiphasic CT or ultrasound. OTHER FINDINGS: None. IMPRESSION: Unremarkable non-contrast enhanced CT of the chest. INCIDENTAL FINDING REQUIRING FURTHER EVALUATION: SOLID PARTIALLY NECROTIC MASS UPPER POLE LEFT KIDNEY.
--- NOTE | 2017-04-07 18:38 | CARD ---
APPROVED REPORT EXAM: Two-dimensional and M-mode echocardiogram with Doppler and color Doppler. Other Information Quality : AverageRhythm : NSR INDICATION Dyspnea Elevated Troponin 2D DIMENSIONS IVSd1.09 (0.7-1.1cm)LVDd3.63 (3.9-5.9cm) PWd1.11 (0.7-1.1cm)IVSs1.39 (0.8-1.2cm) LVDs2.59 (2.5-4.0cm)FS (%) 28.7 % PWs1.00 (0.8-1.2cm) Aortic Valve AoV Peak Aaffwsoa097.4cm/sAoV VTI59.8cmAO Peak GR.36mmHg LVOT Peak Exylhmxa780.8cm/sLVOT VTI30.00cmAO Mean GR.22mmHg Mitral Valve MV E Vdzgxncv631.1cm/sMV DECEL SPGA771srCN A Hllxcfdd121.4cm/s MV KBI13seY/A ratio0.9MVA (PHT)2.22cm2 TDI E/Lateral E'0.0E/Medial E'0.0 Tricuspid Valve TR Peak Ipeqthqe305jy/sRAP CHVPOGTD63ktTxEU Peak Gr.29mmHg UYSM84pgTe LEFT VENTRICLE The left ventricle is normal in size. There is normal left ventricular wall thickness. The left ventricular function is normal. The left ventricular ejection fraction is - 60%. There is normal LV segmental wall motion. Transmitral Doppler flow pattern is Grade I-abnormal relaxation pattern. No left ventricle thrombus noted on this study. There is no ventricular septal defect visualized. There is no left ventricular aneurysm. There is no mass noted in the left ventricle. RIGHT VENTRICLE The right ventricle is normal size. There is normal right ventricular wall thickness. The right ventricular systolic function is normal. ATRIA The left atrium is moderately dilated. There is no thrombus suspected in the left atrium. The right atrium size is normal. The interatrial septum is intact with no evidence for an atrial septal defect. AORTIC VALVE The AV is a bioprosthetic valve with apparent normal function. No aortic regurgitation is present. There is no aortic valvular stenosis. MITRAL VALVE The mitral valve leaflets are normal. Mitral annular calcification is moderate. There is no evidence of mitral valve prolapse. There is no mitral valve stenosis. Mitral regurgitation is mild to moderate. TRICUSPID VALVE The tricuspid valve is normal in structure. There is mild tricuspid regurgitation. Right ventricular systolic pressure is estimated at 39 mmHg. There is no tricuspid valve prolapse or vegetation. There is no tricuspid valve stenosis. PULMONIC VALVE The pulmonary valve is normal in structure. doppler studies if the PV were not done GREAT VESSELS The aortic root is normal in size. The IVC is normal in size and collapses >50% with inspiration. PERICARDIAL EFFUSION The pericardium appears normal. There is no pleural effusion. <Conclusion> The left ventricle is normal in size and wall thickness. The left ventricular function is normal. The left ventricular ejection fraction is - 60%. The left atrium is moderately dilated. The AV is a bioprosthetic valve with apparent normal function. The mitral valve leaflets are normal and mitral annular calcification is moderate. There is mild to moderate mitral regurgitation and mild tricuspid regurgitation.
[2017-04-07] MEDS: Albuterol-Ipratrop 3 mg / 0.5 (3 ml) UD INH SCH (19:58)
[2017-04-07] MEDS: Pravastatin Sodium 20 MG TAB PO SCH (22:14)
[2017-04-08] MEDS: Albuterol-Ipratrop 3 mg / 0.5 (3 ml) UD INH SCH ×2 (01:05→08:07)
[2017-04-08] MEDS: Enoxaparin 30 mg Syringe SC SCH (08:28)
[2017-04-08] MEDS: guaiFENesin 600 mg ER Tab PO SCH ×2 (08:29→21:41)
[2017-04-08] MEDS: Calcium-Vit D 500 mg-200 Units Tab UD PO SCH (08:31)
[2017-04-08] MEDS: Levothyroxine 100 MCG TAB PO SCH (08:32)
--- NOTE | 2017-04-08 09:17 | CP.PCM.PN ---
Subjective - Date & Time of Evaluation Date of Evaluation: 04/08/17 Time of Evaluation: 09:16 - Subjective Subjective: Chest CT w/o major thoracic findings, but necrotic mass seen in upper pole of left kidney which requires further testing. Breathing more comfortably on current regimen, but having unpleasant 'shaking' after aerosol treatment. Less rhonchi today than yesterday with an occasional expiratory wheeze. Vital signs have been good and she has been afebrile and well oxygenated. Will change nebulizer treatments. Should have renal US and nephrology/urology consultation. Objective - Vital Signs/Intake and Output Vital Signs (last 24 hours): Temp Pulse Resp BP Pulse Ox 98.5 F 73 20 130/76 96 04/08/17 08:00 04/08/17 08:30 04/08/17 08:00 04/08/17 08:30 04/08/17 08:00 Intake and Output: 04/07/17 04/08/17 23:59 11:59 Intake Total 1200 Balance 1200 - Medications Medications: Current Medications Albuterol/Ipratropium (Duoneb 3 Mg/0.5 Mg (3 Ml) Ud) 3 ml INH RQ6 [facility] Last Admin: 04/08/17 08:07 Dose: 3 ml Amlodipine Besylate (Norvasc) 5 mg PO DAILY [facility] Last Admin: 04/08/17 08:30 Dose: 5 mg Aspirin (Ecotrin) 81 mg PO DAILY [facility] Last Admin: 04/08/17 08:27 Dose: 81 mg Calcitriol (Rocaltrol) 0.25 mcg PO TID [facility] Last Admin: 04/08/17 08:31 Dose: 0.25 mcg Calcium/Vitamin D (Oyster Shell Calcium/Vitamin D 500 Mg-200 Iu) 1 tab PO DAILY [facility] Last Admin: 04/08/17 08:31 Dose: 1 tab Enoxaparin Sodium (Lovenox) 30 mg SC DAILY [facility] PRN Reason: Protocol Last Admin: 04/08/17 08:28 Dose: 30 mg Gabapentin (Neurontin) 100 mg PO HS [facility] Last Admin: 04/07/17 22:15 Dose: 100 mg Guaifenesin (Mucinex La) 600 mg PO Q12 [facility] Last Admin: 04/08/17 08:29 Dose: 600 mg Levothyroxine Sodium (Synthroid) 100 mcg PO DAILY [facility] Last Admin: 04/08/17 08:32 Dose: 100 mcg Metoprolol Tartrate (Lopressor) 25 mg PO BID [facility] Last Admin: 04/08/17 08:27 Dose: 25 mg Ondansetron HCl (Zofran Inj) 4 mg IVP Q6 PRN PRN Reason: Nausea/Vomiting Oseltamivir Phosphate (Tamiflu Cap) 75 mg PO BID [facility] PRN Reason: Protocol Last Admin: 04/08/17 08:33 Dose: 75 mg Pantoprazole Sodium (Protonix Ec Tab) 40 mg PO DAILY PRN PRN Reason: Heartburn Last Admin: 04/06/17 21:50 Dose: 40 mg Pneumococcal Polyvalent Vaccine (Pneumovax 23 Vaccine) 0.5 ml IM .ONCE ONE Stop: 04/09/17 09:01 Pravastatin Sodium (Pravachol) 20 mg PO HS [facility] Last Admin: 04/07/17 22:14 Dose: 20 mg - Labs Labs: 04/07/17 09:44 04/07/17 09:44 Assessment and Plan (1) Bronchitis with influenza Status: Acute (2) Dyspnea on exertion Status: Chronic (3) Elevated troponin Status: Acute (4) PVD (peripheral vascular disease) Status: Chronic (5) Left renal mass Status: Acute
--- NOTE | 2017-04-08 10:02 | CP.PCM.PN ---
Subjective - Date & Time of Evaluation Date of Evaluation: 04/08/17 Time of Evaluation: 09:00 - Subjective Subjective: FEELS A LITTLE BETTER LESS SOB AND LESS COUGHING Objective - Vital Signs/Intake and Output Vital Signs (last 24 hours): Temp Pulse Resp BP Pulse Ox 98.5 F 73 20 130/76 96 04/08/17 08:00 04/08/17 08:30 04/08/17 08:00 04/08/17 08:30 04/08/17 08:00 Intake and Output: 04/08/17 04/08/17 06:59 18:59 Intake Total 1200 Balance 1200 - Medications Medications: Current Medications Albuterol/Ipratropium (Duoneb 3 Mg/0.5 Mg (3 Ml) Ud) 3 ml INH RQ6 [facility] Last Admin: 04/08/17 08:07 Dose: 3 ml Amlodipine Besylate (Norvasc) 5 mg PO DAILY [facility] Last Admin: 04/08/17 08:30 Dose: 5 mg Aspirin (Ecotrin) 81 mg PO DAILY [facility] Last Admin: 04/08/17 08:27 Dose: 81 mg Calcitriol (Rocaltrol) 0.25 mcg PO TID [facility] Last Admin: 04/08/17 08:31 Dose: 0.25 mcg Calcium/Vitamin D (Oyster Shell Calcium/Vitamin D 500 Mg-200 Iu) 1 tab PO DAILY [facility] Last Admin: 04/08/17 08:31 Dose: 1 tab Enoxaparin Sodium (Lovenox) 30 mg SC DAILY [facility] PRN Reason: Protocol Last Admin: 04/08/17 08:28 Dose: 30 mg Gabapentin (Neurontin) 100 mg PO HS [facility] Last Admin: 04/07/17 22:15 Dose: 100 mg Guaifenesin (Mucinex La) 600 mg PO Q12 [facility] Last Admin: 04/08/17 08:29 Dose: 600 mg Levothyroxine Sodium (Synthroid) 100 mcg PO DAILY [facility] Last Admin: 04/08/17 08:32 Dose: 100 mcg Metoprolol Tartrate (Lopressor) 25 mg PO BID [facility] Last Admin: 04/08/17 08:27 Dose: 25 mg Ondansetron HCl (Zofran Inj) 4 mg IVP Q6 PRN PRN Reason: Nausea/Vomiting Oseltamivir Phosphate (Tamiflu Cap) 75 mg PO BID [facility] PRN Reason: Protocol Last Admin: 04/08/17 08:33 Dose: 75 mg Pantoprazole Sodium (Protonix Ec Tab) 40 mg PO DAILY PRN PRN Reason: Heartburn Last Admin: 04/06/17 21:50 Dose: 40 mg Pneumococcal Polyvalent Vaccine (Pneumovax 23 Vaccine) 0.5 ml IM .ONCE ONE Stop: 04/09/17 09:01 Pravastatin Sodium (Pravachol) 20 mg PO HS [facility] Last Admin: 04/07/17 22:14 Dose: 20 mg - Labs Labs: 04/07/17 09:44 04/07/17 09:44 - Respiratory Exam Respiratory Exam: Rhonchi - Cardiovascular Exam Cardiovascular Exam: REGULAR RHYTHM, Murmur - Additional Findings Additional findings: CT SCAN WITH LEFT KIDNEY UPPER POLE NECROTIC MASS Assessment and Plan - Assessment and Plan (Free Text) Assessment: INFLUENZA WITH CHRONIC LUNG DISEASE S/P AVR FOR HYPERTENSION HYPERLIPIDEMIA Plan: CONTINUE TAMIFLU, BRONCHODILATORS, METOPROLOL, AMLODIPINE AND PRAVACHOL THE PATIENT SHOULD HAVE FURTHER EVALUATION OF THE LEFT KIDNEY MASS-RENAL US ORDERED BY ME-RECOMMEND ABDOMINAL CT WITH CONTRAST AND UROLOGY EVALUATION
--- NOTE | 2017-04-08 11:21 | US ---
PROCEDURE: Ultrasound of the Kidneys HISTORY: UPPER LEFT KIDNEY MASS COMPARISON: None available. TECHNIQUE: Sonogram of the kidneys. FINDINGS: RIGHT KIDNEY: Measures: 9.2 x 6.0 x 4.5 cm. Normal in size, contour and echogenicity. No stone, solid mass lesion or hydronephrosis visualized. LEFT KIDNEY: Measures: 8.9 x 4.7 x 5.3 cm. Solid heterogeneously hypoechoic upper pole 4.8 x 4.4 x 4.7 cm mass with peripheral and mild internal Doppler flow. Normal in size, contour and echogenicity. No stone or hydronephrosis visualized. OTHER FINDINGS: None. IMPRESSION: Solid heterogeneously hypoechoic upper pole mass measuring up to 4.8 cm with peripheral and mild internal Doppler flow. Renal protocol CT/ MRI is recommended for further characterization.
--- NOTE | 2017-04-08 13:03 | CP.PCM.PN ---
<Tenzin Perez - Last Filed: 04/08/17 13:47> Subjective - Date & Time of Evaluation Date of Evaluation: 04/08/17 Time of Evaluation: 11:45 - Subjective Subjective: Patient seen at bedside in not acute distress. Still c/o SOB and weakness but less. Afebrile and no acute events overnight. Incidental renal mass found on Chest CT. C/O chronic L/lower leg pain. Objective - Vital Signs/Intake and Output Vital Signs (last 24 hours): Temp Pulse Resp BP Pulse Ox 98.5 F 60 18 126/77 98 04/08/17 12:49 04/08/17 12:49 04/08/17 12:49 04/08/17 12:49 04/08/17 12:49 Intake and Output: 04/08/17 04/08/17 06:59 18:59 Intake Total 1200 Balance 1200 - Medications Medications: Current Medications Amlodipine Besylate (Norvasc) 5 mg PO DAILY [facility] Last Admin: 04/08/17 08:30 Dose: 5 mg Aspirin (Ecotrin) 81 mg PO DAILY [facility] Last Admin: 04/08/17 08:27 Dose: 81 mg Calcitriol (Rocaltrol) 0.25 mcg PO TID [facility] Last Admin: 04/08/17 08:31 Dose: 0.25 mcg Calcium/Vitamin D (Oyster Shell Calcium/Vitamin D 500 Mg-200 Iu) 1 tab PO DAILY [facility] Last Admin: 04/08/17 08:31 Dose: 1 tab Enoxaparin Sodium (Lovenox) 30 mg SC DAILY [facility] PRN Reason: Protocol Last Admin: 04/08/17 08:28 Dose: 30 mg Gabapentin (Neurontin) 100 mg PO HS [facility] Last Admin: 04/07/17 22:15 Dose: 100 mg Guaifenesin (Mucinex La) 600 mg PO Q12 [facility] Last Admin: 04/08/17 08:29 Dose: 600 mg Ipratropium [place] (Atrovent) 0.5 mg IH RQ8 [facility] Levalbuterol HCl (Xopenex) 0.63 mg INH RQ8 [facility] Levothyroxine Sodium (Synthroid) 100 mcg PO DAILY [facility] Last Admin: 04/08/17 08:32 Dose: 100 mcg Metoprolol Tartrate (Lopressor) 25 mg PO BID [facility] Last Admin: 04/08/17 08:27 Dose: 25 mg Ondansetron HCl (Zofran Inj) 4 mg IVP Q6 PRN PRN Reason: Nausea/Vomiting Oseltamivir Phosphate (Tamiflu Cap) 75 mg PO BID [facility] PRN Reason: Protocol Last Admin: 04/08/17 08:33 Dose: 75 mg Pantoprazole Sodium (Protonix Ec Tab) 40 mg PO DAILY PRN PRN Reason: Heartburn Last Admin: 04/06/17 21:50 Dose: 40 mg Pneumococcal Polyvalent Vaccine (Pneumovax 23 Vaccine) 0.5 ml IM .ONCE ONE Stop: 04/09/17 09:01 Pravastatin Sodium (Pravachol) 20 mg PO HS [facility] Last Admin: 04/07/17 22:14 Dose: 20 mg - Labs Labs: 04/07/17 09:44 04/07/17 09:44 - Constitutional Appears: Non-toxic, No Acute Distress - Eye Exam Eye Exam: EOMI, PERRL - ENT Exam ENT Exam: Mucous Membranes Moist - Respiratory Exam Respiratory Exam: Rhonchi, Wheezes (Occasional exp). absent: Rales - Cardiovascular Exam Cardiovascular Exam: REGULAR RHYTHM, +S1, +S2 - GI/Abdominal Exam GI & Abdominal Exam: Soft. absent: Tenderness - Extremities Exam Extremities Exam: absent: Calf Tenderness, Joint Swelling, Normal Inspection ( Chronic skin discoloration changes), Tenderness - Neurological Exam Neurological Exam: Alert, Awake, Oriented x3 - Psychiatric Exam Psychiatric exam: Normal Affect, Normal Mood - Skin Skin Exam: absent: Pallor, Petechiae, Rash Assessment and Plan - Assessment and Plan (Free Text) Assessment: 86 YO F admitted for elevated troponins and flu positive 1) Influenza - Improved - Still SOB with min exertion - Still C/O moderate weakness - C/W Tamiflu 75 mg BID x 5 days - Afebrile - Likely DC tomorrow if c/w resp improvement 2) Elevated troponin - trending down : .3, .27, .26 - h/o of elevated tropinin, no chest pain - Cardio consult appreciated: As per Cardio unlikely cardiac. Hx of previous cardiac cath WNL 5 y/a and no CP. - Stress test out patient after patient has recovered from flu 3) Renal mass -Detected on Chest CT and confirmed on renal US -Recs further evaluation as outpatient by Urology -BUN/Creat WNL 4) DVT prophylaxis Lovenox <Redd Henryry Zana - Last Filed: 04/11/17 19:38> Objective - Vital Signs/Intake and Output Vital Signs (last 24 hours): Temp Pulse Resp BP Pulse Ox 97.9 F 63 20 154/74 H 98 04/11/17 19:21 18 19:21 04/11/17 19:21 04/11/17 19:21 04/11/17 19:21 Intake and Output: 04/11/17 04/12/17 18:59 06:59 Intake Total 740 Balance 740 - Medications Medications: Current Medications Acetaminophen (Tylenol 325mg Tab) 650 mg PO Q6 PRN PRN Reason: Pain, moderate (4-7) Last Admin: 04/11/17 15:01 Dose: 650 mg Amlodipine Besylate (Norvasc) 5 mg PO DAILY [facility] Last Admin: 04/11/17 10:08 Dose: 5 mg Aspirin (Ecotrin) 81 mg PO DAILY [facility] Last Admin: 04/11/17 10:06 Dose: 81 mg Calcitriol (Rocaltrol) 0.25 mcg PO TID [facility] Last Admin: 04/11/17 16:16 Dose: 0.25 mcg Calcium/Vitamin D (Oyster Shell Calcium/Vitamin D 500 Mg-200 Iu) 1 tab PO DAILY [facility] Last Admin: 04/11/17 10:07 Dose: 1 tab Gabapentin (Neurontin) 100 mg PO HS [facility] Last Admin: 04/10/17 21:42 Dose: 100 mg Guaifenesin (Mucinex La) 600 mg PO Q12 [facility] Last Admin: 04/11/17 10:06 Dose: 600 mg Ipratropium [place] (Atrovent) 0.5 mg IH RQ8 [facility] Last Admin: 04/11/17 08:09 Dose: 0.5 mg Levalbuterol HCl (Xopenex) 0.63 mg INH RQ8 [facility] Last Admin: 04/11/17 15:58 Dose: 0.63 mg Levothyroxine Sodium (Synthroid) 100 mcg PO DAILY [facility] Last Admin: 04/11/17 10:06 Dose: 100 mcg Metoprolol Tartrate (Lopressor) 25 mg PO BID [facility] Last Admin: 04/11/17 16:17 Dose: Not Given Ondansetron HCl (Zofran Inj) 4 mg IVP Q6 PRN PRN Reason: Nausea/Vomiting Oseltamivir Phosphate (Tamiflu Cap) 75 mg PO BID [facility] PRN Reason: Protocol Last Admin: 04/11/17 16:16 Dose: 75 mg Pantoprazole Sodium (Protonix Ec Tab) 40 mg PO DAILY PRN PRN Reason: Heartburn Last Admin: 04/06/17 21:50 Dose: 40 mg Pravastatin Sodium (Pravachol) 20 mg PO HS [facility] Last Admin: 04/10/17 21:42 Dose: 20 mg - Labs Labs: 04/11/17 04:25 04/11/17 04:25 Assessment and Plan - Assessment and Plan (Free Text) Plan: I was present during evaluation and discussed with Dr Perez re plans of care and mgt. Oliverio Henry M.D.
[2017-04-08] MEDS: Ipratropium 0.02% Inhal Soln (0.5 mg/2.5 ml) UD IH SCH ×2 (14:05→16:09)
[2017-04-08] MEDS: Levalbuterol 0.63 MG/3 ML Inhal Soln UD INH SCH ×2 (14:05→16:09)
[2017-04-08] MEDS: Pravastatin Sodium 20 MG TAB PO SCH (21:41)
[2017-04-09] MEDS: Ipratropium 0.02% Inhal Soln (0.5 mg/2.5 ml) UD IH SCH ×3 (01:04→15:48)
[2017-04-09] MEDS: Levalbuterol 0.63 MG/3 ML Inhal Soln UD INH SCH ×3 (01:04→15:48)
[2017-04-09 06:57] LABS: HEMOGLOBIN 13.4 g/dL (12.0-16.0); MEAN CELL VOLUME 90.1 fl (81.0-99.0); MEAN CORPUSCULAR HEMOGLOBIN 31.7 pg (27.0-31.0); MEAN CORPUSCULAR HGB CONC 35.2 g/dL (33.0-37.0); RBC 4.21 Mil/uL (3.80-5.20); RED CELL DISTRIBUTION WIDTH 13.2 % (11.5-14.5); WHITE BLOOD COUNT 5.4 K/uL (4.8-10.8)
[2017-04-09 07:18] LABS: ALB/GLOB RATIO 1.1 (1.0-2.1); ALBUMIN 3.5 g/dL (3.5-5.0); ALT/SGPT 52 U/L (9-52); AST/SGOT 42 U/L (14-36); BLOOD UREA NITROGEN 25 mg/dl (7-17); CALCIUM 8.7 mg/dL (8.4-10.2); GFR AFRICAN-AMERICAN > 60; GFR NON-AFRICAN AMERICAN > 60
--- NOTE | 2017-04-09 09:06 | CP.PCM.PN ---
Subjective - Date & Time of Evaluation Date of Evaluation: 04/09/17 Time of Evaluation: 08:30 - Subjective Subjective: NO CHEST PAIN STILL SOB AND WEAK BUT LESS THAN ON ADMISSION Objective - Vital Signs/Intake and Output Vital Signs (last 24 hours): Temp Pulse Resp BP Pulse Ox 97.6 F 61 18 133/73 97 04/09/17 08:00 04/09/17 08:00 04/09/17 08:00 04/09/17 08:00 04/09/17 08:00 Intake and Output: 04/09/17 04/09/17 06:59 18:59 Intake Total 1000 Balance 1000 - Medications Medications: Current Medications Acetaminophen (Tylenol 325mg Tab) 650 mg PO Q6 PRN PRN Reason: Pain, moderate (4-7) Last Admin: 04/09/17 01:48 Dose: 650 mg Amlodipine Besylate (Norvasc) 5 mg PO DAILY [facility] Last Admin: 04/08/17 08:30 Dose: 5 mg Aspirin (Ecotrin) 81 mg PO DAILY [facility] Last Admin: 04/08/17 08:27 Dose: 81 mg Calcitriol (Rocaltrol) 0.25 mcg PO TID [facility] Last Admin: 04/08/17 17:01 Dose: 0.25 mcg Calcium/Vitamin D (Oyster Shell Calcium/Vitamin D 500 Mg-200 Iu) 1 tab PO DAILY [facility] Last Admin: 04/08/17 08:31 Dose: 1 tab Enoxaparin Sodium (Lovenox) 30 mg SC DAILY [facility] PRN Reason: Protocol Last Admin: 04/08/17 08:28 Dose: 30 mg Gabapentin (Neurontin) 100 mg PO HS [facility] Last Admin: 04/08/17 21:41 Dose: 100 mg Guaifenesin (Mucinex La) 600 mg PO Q12 [facility] Last Admin: 04/08/17 21:41 Dose: 600 mg Ipratropium [place] (Atrovent) 0.5 mg IH RQ8 [facility] Last Admin: 04/09/17 07:54 Dose: 0.5 mg Levalbuterol HCl (Xopenex) 0.63 mg INH RQ8 [facility] Last Admin: 04/09/17 07:54 Dose: 0.63 mg Levothyroxine Sodium (Synthroid) 100 mcg PO DAILY [facility] Last Admin: 04/08/17 08:32 Dose: 100 mcg Metoprolol Tartrate (Lopressor) 25 mg PO BID [facility] Last Admin: 04/08/17 17:01 Dose: 25 mg Ondansetron HCl (Zofran Inj) 4 mg IVP Q6 PRN PRN Reason: Nausea/Vomiting Oseltamivir Phosphate (Tamiflu Cap) 75 mg PO BID [facility] PRN Reason: Protocol Last Admin: 04/08/17 17:00 Dose: 75 mg Pantoprazole Sodium (Protonix Ec Tab) 40 mg PO DAILY PRN PRN Reason: Heartburn Last Admin: 04/06/17 21:50 Dose: 40 mg Pravastatin Sodium (Pravachol) 20 mg PO HS [facility] Last Admin: 04/08/17 21:41 Dose: 20 mg - Labs Labs: 04/09/17 06:19 04/09/17 06:19 - Respiratory Exam Additional comments: MILD RONCHI AND WHEEZES - Cardiovascular Exam Cardiovascular Exam: REGULAR RHYTHM, +S1, +S2 - Extremities Exam Additional comments: NO LE EDEMA - Additional Findings Additional findings: ECHOCARDIOGRAM WITH LVEF OF ~ 60% RENAL US WITH LEFT KIDNEY UPPER POLE 4.8 X4.4X4.7 CM HETEROGENEOUS MASS-CT OR MRI RECOMMENDED Assessment and Plan - Assessment and Plan (Free Text) Assessment: INFLUENZA CHRONIC LUNG DISEASE HYPERTENSION HYPERLIPIDEMIA LEFT KIDNEY MASS Plan: CONTINUE O2, TAMIFLU, BRONCHODILATORS, METOPROLOL, AMLODIPINE, PRAVACHOL, ASPIRIN, LOVENOX CT OF ABDOMEN/PELVIS WITH CONTRAST TO BETTER ASSESS LEFT KIDNEY MASS
[2017-04-09] MEDS: Enoxaparin 30 mg Syringe SC SCH (10:03)
[2017-04-09] MEDS: guaiFENesin 600 mg ER Tab PO SCH ×2 (10:04→21:14)
[2017-04-09] MEDS: Calcium-Vit D 500 mg-200 Units Tab UD PO SCH (10:04)
[2017-04-09] MEDS: Levothyroxine 100 MCG TAB PO SCH (10:05)
--- NOTE | 2017-04-09 11:27 | CP.PCM.PN ---
Subjective - Date & Time of Evaluation Date of Evaluation: 04/09/17 Time of Evaluation: 11:24 - Subjective Subjective: From a respiratory standpoint she appears to be improving nicely. there remains a congested cough, and she still has difficulty with expectorating the sputum. She has remained afebrile and well oxygenated. There is no leukocytosis and her renal function has been okay. The cough this morning is congested, but still non-productive. The breath sounds are slightly diminished bilaterally with sonorous rhonchi. No audible wheezing appreciated. Rare dry rales in lower lobes. Erythema with mildly increased warmth in the distal RLE. Prominent varicose veins in both LEs. 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 These appear fairly well managed and stable at the present time. Current work up is ongoing for what looks like possible renal cell carcinoma of the left kidney. Objective - Vital Signs/Intake and Output Vital Signs (last 24 hours): Temp Pulse Resp BP Pulse Ox 97.6 F 61 18 133/73 97 04/09/17 08:00 04/09/17 08:00 04/09/17 08:00 04/09/17 08:00 04/09/17 08:00 Intake and Output: 04/08/17 04/09/17 23:59 11:59 Intake Total 1000 Balance 1000 - Medications Medications: Current Medications Acetaminophen (Tylenol 325mg Tab) 650 mg PO Q6 PRN PRN Reason: Pain, moderate (4-7) Last Admin: 04/09/17 01:48 Dose: 650 mg Amlodipine Besylate (Norvasc) 5 mg PO DAILY [facility] Last Admin: 04/09/17 10:04 Dose: 5 mg Aspirin (Ecotrin) 81 mg PO DAILY [facility] Last Admin: 04/09/17 10:02 Dose: 81 mg Calcitriol (Rocaltrol) 0.25 mcg PO TID [facility] Last Admin: 04/09/17 10:05 Dose: 0.25 mcg Calcium/Vitamin D (Oyster Shell Calcium/Vitamin D 500 Mg-200 Iu) 1 tab PO DAILY [facility] Last Admin: 04/09/17 10:04 Dose: 1 tab Enoxaparin Sodium (Lovenox) 30 mg SC DAILY [facility] PRN Reason: Protocol Last Admin: 04/09/17 10:03 Dose: 30 mg Gabapentin (Neurontin) 100 mg PO HS [facility] Last Admin: 04/08/17 21:41 Dose: 100 mg Guaifenesin (Mucinex La) 600 mg PO Q12 [facility] Last Admin: 04/09/17 10:04 Dose: 600 mg Ipratropium [place] (Atrovent) 0.5 mg IH RQ8 [facility] Last Admin: 04/09/17 07:54 Dose: 0.5 mg Levalbuterol HCl (Xopenex) 0.63 mg INH RQ8 [facility] Last Admin: 04/09/17 07:54 Dose: 0.63 mg Levothyroxine Sodium (Synthroid) 100 mcg PO DAILY [facility] Last Admin: 04/09/17 10:05 Dose: 100 mcg Metoprolol Tartrate (Lopressor) 25 mg PO BID [facility] Last Admin: 04/09/17 10:03 Dose: Not Given Ondansetron HCl (Zofran Inj) 4 mg IVP Q6 PRN PRN Reason: Nausea/Vomiting Oseltamivir Phosphate (Tamiflu Cap) 75 mg PO BID [facility] PRN Reason: Protocol Last Admin: 04/09/17 10:05 Dose: 75 mg Pantoprazole Sodium (Protonix Ec Tab) 40 mg PO DAILY PRN PRN Reason: Heartburn Last Admin: 04/06/17 21:50 Dose: 40 mg Pravastatin Sodium (Pravachol) 20 mg PO HS [facility] Last Admin: 04/08/17 21:41 Dose: 20 mg - Labs Labs: 04/09/17 06:19 04/09/17 06:19 Assessment and Plan (1) Bronchitis with influenza Status: Acute (2) Dyspnea on exertion Status: Chronic (3) Elevated troponin Status: Acute (4) PVD (peripheral vascular disease) Status: Chronic
[2017-04-09] MEDS: Pravastatin Sodium 20 MG TAB PO SCH (21:15)
[2017-04-10] MEDS: Levalbuterol 0.63 MG/3 ML Inhal Soln UD INH SCH ×3 (00:53→16:54)
[2017-04-10] MEDS: Ipratropium 0.02% Inhal Soln (0.5 mg/2.5 ml) UD IH SCH ×3 (00:53→16:53)
--- NOTE | 2017-04-10 09:26 | PN ---
DATE: SUBJECTIVE: The patient is seen and examined. The patient is seen . The patient feels little better. Still has exertion and shortness of breath. No chest pain. PHYSICAL EXAMINATION: GENERAL: The patient is in no acute distress. VITAL SIGNS: Stable. HEART: S1 and S2, normal and regular. LUNGS: Good bilateral air exchange. No rales. No rhonchi. ABDOMEN: Soft and nontender. EXTREMITIES: No edema. No calf swelling. No tenderness. No acute ischemia. [employer]: Essentially unchanged. DIAGNOSTIC DATA: Available diagnostic data reviewed. Consults noted and appreciated. PLAN: Overall, the patient is slowly improving. Plan as ordered. Telemetry monitoring does not reveal any significant arrhythmia. True Peters MD
[2017-04-10] MEDS ORDERED: Iohexol 300 100 ML IJ ONE (10:11)
--- NOTE | 2017-04-10 11:43 | CT ---
PROCEDURE: CT Abdomen and Pelvis with contrast HISTORY: LEFT KIDNEY UPPER POLE MASS COMPARISON: None. TECHNIQUE: Contrast dose: Radiation dose: Total exam DLP = mGy-cm. This CT exam was performed using one or more of the following dose reduction techniques: Automated exposure control, adjustment of the mA and/or kV according to patient size, and/or use of iterative reconstruction technique. FINDINGS: LOWER THORAX: Unremarkable. Cardiomegaly. LIVER: Unremarkable. No gross lesion or ductal dilatation. GALLBLADDER AND BILE DUCTS: Unremarkable. PANCREAS: Unremarkable. No gross lesion or ductal dilatation. SPLEEN: Unremarkable. ADRENALS: Unremarkable. No mass. KIDNEYS AND URETERS: 4.1 centimeter necrotic mass in the upper pole of the left kidney consistent with renal cell carcinoma until proven otherwise. No evidence of metastatic disease. VASCULATURE: Unremarkable. No aortic aneurysm. BOWEL: Unremarkable. No obstruction. No gross mural thickening. APPENDIX: Normal appendix. PERITONEUM: Unremarkable. No free fluid. No free air. LYMPH NODES: Unremarkable. No enlarged lymph nodes. BLADDER: Unremarkable. REPRODUCTIVE: Unremarkable. BONES: No acute fracture. OTHER FINDINGS: Pessary in place. IMPRESSION: 4.1 centimeter necrotic mass in the upper pole of the left kidney consistent with renal cell carcinoma until proven otherwise. No evidence of metastatic disease.
[2017-04-10] MEDS: guaiFENesin 600 mg ER Tab PO SCH ×2 (12:06→21:42)
[2017-04-10] MEDS: Enoxaparin 30 mg Syringe SC SCH (12:06)
[2017-04-10] MEDS: Calcium-Vit D 500 mg-200 Units Tab UD PO SCH (12:07)
[2017-04-10] MEDS: Levothyroxine 100 MCG TAB PO SCH (12:07)
[2017-04-10] MEDS: Pravastatin Sodium 20 MG TAB PO SCH (21:42)
[2017-04-11] MEDS: Levalbuterol 0.63 MG/3 ML Inhal Soln UD INH SCH ×4 (00:30→23:55)
[2017-04-11] MEDS: Ipratropium 0.02% Inhal Soln (0.5 mg/2.5 ml) UD IH SCH ×3 (00:30→23:55)
[2017-04-11 06:10] LABS: HEMOGLOBIN 12.9 g/dL (12.0-16.0); MEAN CELL VOLUME 91.7 fl (81.0-99.0); MEAN CORPUSCULAR HEMOGLOBIN 30.8 pg (27.0-31.0); MEAN CORPUSCULAR HGB CONC 33.6 g/dL (33.0-37.0); RBC 4.19 Mil/uL (3.80-5.20); RED CELL DISTRIBUTION WIDTH 13.1 % (11.5-14.5); WHITE BLOOD COUNT 4.4 K/uL (4.8-10.8)
[2017-04-11 06:13] LABS: ALB/GLOB RATIO 1.2 (1.0-2.1); ALBUMIN 3.5 g/dL (3.5-5.0); ALT/SGPT 53 U/L (9-52); AST/SGOT 24 U/L (14-36); BLOOD UREA NITROGEN 22 mg/dl (7-17); CALCIUM 8.8 mg/dL (8.4-10.2); GFR AFRICAN-AMERICAN > 60; GFR NON-AFRICAN AMERICAN > 60
--- NOTE | 2017-04-11 09:53 | CP.PCM.PN ---
Subjective - Date & Time of Evaluation Date of Evaluation: 04/11/17 Time of Evaluation: 09:53 - Subjective Subjective: Lying in bed without SOB. Occasional congested cough with clear mucous expectorated. Complains ablut discomfort in the LLE. Left distal calf/ankle is erythematous, no increased warmth, indurated. Chest w/o dullness. Diminished breath sounds. Scattered sonorous rhonchi. No audible wheezing or bronchial breathing. Heart sounds well heard, [place]. Stable respiratory status with chronic bronchitis exacerbated by influenza. Stable for discharge from pulmonary standpoint. Needs follow up for PVD-LLE and left renal mass C/W renal cell ca. Can use LAMA (Spiriva/Incruse) once daily and Xopenex HFA PRN. Objective - Vital Signs/Intake and Output Vital Signs (last 24 hours): Temp Pulse Resp BP Pulse Ox 97.6 F 61 20 160/76 H 97 04/11/17 08:00 04/11/17 08:00 04/11/17 08:00 04/11/17 08:00 04/11/17 08:00 Intake and Output: 04/10/17 04/11/17 23:59 11:59 Intake Total 1500 Balance 1500 - Medications Medications: Current Medications Acetaminophen (Tylenol 325mg Tab) 650 mg PO Q6 PRN PRN Reason: Pain, moderate (4-7) Last Admin: 04/10/17 21:42 Dose: 650 mg Amlodipine Besylate (Norvasc) 5 mg PO DAILY [facility] Last Admin: 04/10/17 12:06 Dose: 5 mg Aspirin (Ecotrin) 81 mg PO DAILY [facility] Last Admin: 04/10/17 12:05 Dose: 81 mg Calcitriol (Rocaltrol) 0.25 mcg PO TID [facility] Last Admin: 04/10/17 17:07 Dose: 0.25 mcg Calcium/Vitamin D (Oyster Shell Calcium/Vitamin D 500 Mg-200 Iu) 1 tab PO DAILY [facility] Last Admin: 04/10/17 12:07 Dose: 1 tab Gabapentin (Neurontin) 100 mg PO HS [facility] Last Admin: 04/10/17 21:42 Dose: 100 mg Guaifenesin (Mucinex La) 600 mg PO Q12 [facility] Last Admin: 04/10/17 21:42 Dose: 600 mg Ipratropium [place] (Atrovent) 0.5 mg IH RQ8 [facility] Last Admin: 04/11/17 08:09 Dose: 0.5 mg Levalbuterol HCl (Xopenex) 0.63 mg INH RQ8 [facility] Last Admin: 04/11/17 08:10 Dose: Not Given Levothyroxine Sodium (Synthroid) 100 mcg PO DAILY [facility] Last Admin: 04/10/17 12:07 Dose: 100 mcg Metoprolol Tartrate (Lopressor) 25 mg PO BID [facility] Last Admin: 04/10/17 17:05 Dose: Not Given Ondansetron HCl (Zofran Inj) 4 mg IVP Q6 PRN PRN Reason: Nausea/Vomiting Oseltamivir Phosphate (Tamiflu Cap) 75 mg PO BID [facility] PRN Reason: Protocol Last Admin: 04/10/17 17:06 Dose: 75 mg Pantoprazole Sodium (Protonix Ec Tab) 40 mg PO DAILY PRN PRN Reason: Heartburn Last Admin: 04/06/17 21:50 Dose: 40 mg Pravastatin Sodium (Pravachol) 20 mg PO HS [facility] Last Admin: 04/10/17 21:42 Dose: 20 mg - Labs Labs: 04/11/17 04:25 04/11/17 04:25 Assessment and Plan (1) Bronchitis with influenza Status: Acute (2) Dyspnea on exertion Status: Chronic (3) Elevated troponin Status: Acute (4) PVD (peripheral vascular disease) Status: Chronic
[2017-04-11] MEDS: Levothyroxine 100 MCG TAB PO SCH (10:06)
[2017-04-11] MEDS: guaiFENesin 600 mg ER Tab PO SCH ×2 (10:06→21:13)
[2017-04-11] MEDS: Calcium-Vit D 500 mg-200 Units Tab UD PO SCH (10:07)
--- NOTE | 2017-04-11 12:45 | CP.PCM.PN ---
Subjective - Date & Time of Evaluation Date of Evaluation: 04/11/17 Time of Evaluation: 11:30 - Subjective Subjective: NO CHEST PAIN BREATHING BETTER Objective - Vital Signs/Intake and Output Vital Signs (last 24 hours): Temp Pulse Resp BP Pulse Ox 97.6 F 61 20 176/76 H 97 04/11/17 08:00 04/11/17 10:08 04/11/17 08:00 04/11/17 10:08 04/11/17 08:00 - Medications Medications: Current Medications Acetaminophen (Tylenol 325mg Tab) 650 mg PO Q6 PRN PRN Reason: Pain, moderate (4-7) Last Admin: 04/10/17 21:42 Dose: 650 mg Amlodipine Besylate (Norvasc) 5 mg PO DAILY [facility] Last Admin: 04/11/17 10:08 Dose: 5 mg Aspirin (Ecotrin) 81 mg PO DAILY [facility] Last Admin: 04/11/17 10:06 Dose: 81 mg Calcitriol (Rocaltrol) 0.25 mcg PO TID [facility] Last Admin: 04/11/17 10:06 Dose: 0.25 mcg Calcium/Vitamin D (Oyster Shell Calcium/Vitamin D 500 Mg-200 Iu) 1 tab PO DAILY [facility] Last Admin: 04/11/17 10:07 Dose: 1 tab Gabapentin (Neurontin) 100 mg PO HS [facility] Last Admin: 04/10/17 21:42 Dose: 100 mg Guaifenesin (Mucinex [place]) 600 mg PO Q12 [facility] Last Admin: 04/11/17 10:06 Dose: 600 mg Ipratropium [place] (Atrovent) 0.5 mg IH RQ8 [facility] Last Admin: 04/11/17 08:09 Dose: 0.5 mg Levalbuterol HCl (Xopenex) 0.63 mg INH RQ8 [facility] Last Admin: 04/11/17 08:10 Dose: Not Given Levothyroxine Sodium (Synthroid) 100 mcg PO DAILY [facility] Last Admin: 04/11/17 10:06 Dose: 100 mcg Metoprolol Tartrate (Lopressor) 25 mg PO BID [facility] Last Admin: 04/11/17 10:08 Dose: 25 mg Ondansetron HCl (Zofran Inj) 4 mg IVP Q6 PRN PRN Reason: Nausea/Vomiting Oseltamivir Phosphate (Tamiflu Cap) 75 mg PO BID [facility] PRN Reason: Protocol Last Admin: 04/11/17 10:07 Dose: 75 mg Pantoprazole Sodium (Protonix Ec Tab) 40 mg PO DAILY PRN PRN Reason: Heartburn Last Admin: 04/06/17 21:50 Dose: 40 mg Pravastatin Sodium (Pravachol) 20 mg PO HS [facility] Last Admin: 04/10/17 21:42 Dose: 20 mg - Labs Labs: 04/11/17 04:25 04/11/17 04:25 - Respiratory Exam Respiratory Exam: Clear to Ausculation Bilateral - Cardiovascular Exam Cardiovascular Exam: REGULAR RHYTHM, +S1, +S2 - Additional Findings Additional findings: CT OF ABDOMEN/PELVIS WITH CONTRAST SHOWS LEFT KIDNEY QPPER POLE 4.1 CM NECROTIC MASS Assessment and Plan - Assessment and Plan (Free Text) Assessment: INFLUENZA CHRONIC LUNG DISEASE S/P AVR FOR HYPERTENSION HYPERLIPIDEMIA LEFT RENAL MASS Plan: CONTINUE METOPROLOL, AMLODIPINE, PRAVASTATIN, ASPIRIN, LOVENOX, TAMIFLU, BRONCHODILATORS RECOMMEND UROLOGY EVALUATION OF LEFT RENAL MASS
[2017-04-11 13:31] LABS: URINE BACTERIA RARE (<OCC); URINE BILIRUBIN NEGATIVE (NEGATIVE); URINE BLOOD NEGATIVE (NEGATIVE); URINE CLARITY CLEAR (Clear); URINE COLOR YELLOW (YELLOW); URINE GLUCOSE (UA) NEG (Normal); URINE LEUKOCYTE ESTERASE SMALL Leu/uL (Negative); URINE NITRATE NEGATIVE (NEGATIVE); URINE PROTEIN NEGATIVE (NEGATIVE); URINE UROBILINOGEN 0.2-1.0 mg/dL (0.2-1.0)
--- NOTE | 2017-04-11 19:44 | CP.PCM.PN ---
Subjective - Date & Time of Evaluation Date of Evaluation: 04/09/17 Time of Evaluation: 08:30 - Subjective Subjective: Patient still has some cough and not feeling well Has recurrent chest wall pain Has no fever Objective - Vital Signs/Intake and Output Vital Signs (last 24 hours): Temp Pulse Resp BP Pulse Ox 97.9 F 63 20 154/74 H 98 04/11/17 19:21 18 19:21 04/11/17 19:21 04/11/17 19:21 04/11/17 19:21 Intake and Output: 04/11/17 04/12/17 18:59 06:59 Intake Total 740 Balance 740 - Medications Medications: Current Medications Acetaminophen (Tylenol 325mg Tab) 650 mg PO Q6 PRN PRN Reason: Pain, moderate (4-7) Last Admin: 04/11/17 15:01 Dose: 650 mg Amlodipine Besylate (Norvasc) 5 mg PO DAILY [facility] Last Admin: 04/11/17 10:08 Dose: 5 mg Aspirin (Ecotrin) 81 mg PO DAILY [facility] Last Admin: 04/11/17 10:06 Dose: 81 mg Calcitriol (Rocaltrol) 0.25 mcg PO TID [facility] Last Admin: 04/11/17 16:16 Dose: 0.25 mcg Calcium/Vitamin D (Oyster Shell Calcium/Vitamin D 500 Mg-200 Iu) 1 tab PO DAILY [facility] Last Admin: 04/11/17 10:07 Dose: 1 tab Gabapentin (Neurontin) 100 mg PO HS [facility] Last Admin: 04/10/17 21:42 Dose: 100 mg Guaifenesin (Mucinex La) 600 mg PO Q12 [facility] Last Admin: 04/11/17 10:06 Dose: 600 mg Ipratropium [place] (Atrovent) 0.5 mg IH RQ8 [facility] Last Admin: 04/11/17 08:09 Dose: 0.5 mg Levalbuterol HCl (Xopenex) 0.63 mg INH RQ8 [facility] Last Admin: 04/11/17 15:58 Dose: 0.63 mg Levothyroxine Sodium (Synthroid) 100 mcg PO DAILY [facility] Last Admin: 04/11/17 10:06 Dose: 100 mcg Metoprolol Tartrate (Lopressor) 25 mg PO BID [facility] Last Admin: 04/11/17 16:17 Dose: Not Given Ondansetron HCl (Zofran Inj) 4 mg IVP Q6 PRN PRN Reason: Nausea/Vomiting Oseltamivir Phosphate (Tamiflu Cap) 75 mg PO BID [facility] PRN Reason: Protocol Last Admin: 04/11/17 16:16 Dose: 75 mg Pantoprazole Sodium (Protonix Ec Tab) 40 mg PO DAILY PRN PRN Reason: Heartburn Last Admin: 04/06/17 21:50 Dose: 40 mg Pravastatin Sodium (Pravachol) 20 mg PO HS [facility] Last Admin: 04/10/17 21:42 Dose: 20 mg - Labs Labs: 04/11/17 04:25 04/11/17 04:25 - Head Exam Head Exam: NORMAL INSPECTION - Eye Exam Eye Exam: Normal appearance - ENT Exam ENT Exam: Mucous Membranes Moist - Respiratory Exam Respiratory Exam: Rhonchi - Cardiovascular Exam Cardiovascular Exam: REGULAR RHYTHM - Neurological Exam Neurological Exam: CN II-XII Intact, Oriented x3 Assessment and Plan (1) Acute bronchitis Status: Acute (2) Bronchitis with influenza Status: Acute (3) Left renal mass Status: Acute - Assessment and Plan (Free Text) Plan: Con tmeds recheck CT abd pelvis cont meds neb tx
--- NOTE | 2017-04-11 19:50 | CP.PCM.PN ---
Subjective - Date & Time of Evaluation Date of Evaluation: 04/11/17 Time of Evaluation: 10:30 - Subjective Subjective: Patient feels a lot better although still with a lot of cough and congestion CT scan of the abd showed a necrotic mass on the left kidney upper pole possibly renal carcinoma Has no fever Denies having any weight loss. labs are normal. Objective - Vital Signs/Intake and Output Vital Signs (last 24 hours): Temp Pulse Resp BP Pulse Ox 97.9 F 63 20 154/74 H 98 04/11/17 19:21 04/11/17 19:21 04/11/17 19:21 04/11/17 19:21 04/11/17 19:21 Intake and Output: 04/11/17 04/12/17 18:59 06:59 Intake Total 740 Balance 740 - Medications Medications: Current Medications Acetaminophen (Tylenol 325mg Tab) 650 mg PO Q6 PRN PRN Reason: Pain, moderate (4-7) Last Admin: 04/11/17 15:01 Dose: 650 mg Amlodipine Besylate (Norvasc) 5 mg PO DAILY [facility] Last Admin: 04/11/17 10:08 Dose: 5 mg Aspirin (Ecotrin) 81 mg PO DAILY [facility] Last Admin: 04/11/17 10:06 Dose: 81 mg Calcitriol (Rocaltrol) 0.25 mcg PO TID [facility] Last Admin: 04/11/17 16:16 Dose: 0.25 mcg Calcium/Vitamin D (Oyster Shell Calcium/Vitamin D 500 Mg-200 Iu) 1 tab PO DAILY [facility] Last Admin: 04/11/17 10:07 Dose: 1 tab Gabapentin (Neurontin) 100 mg PO HS [facility] Last Admin: 04/10/17 21:42 Dose: 100 mg Guaifenesin (Mucinex La) 600 mg PO Q12 [facility] Last Admin: 04/11/17 10:06 Dose: 600 mg Ipratropium [place] (Atrovent) 0.5 mg IH RQ8 [facility] Last Admin: 04/11/17 08:09 Dose: 0.5 mg Levalbuterol HCl (Xopenex) 0.63 mg INH RQ8 [facility] Last Admin: 04/11/17 15:58 Dose: 0.63 mg Levothyroxine Sodium (Synthroid) 100 mcg PO DAILY [facility] Last Admin: 04/11/17 10:06 Dose: 100 mcg Metoprolol Tartrate (Lopressor) 25 mg PO BID [facility] Last Admin: 04/11/17 16:17 Dose: Not Given Ondansetron HCl (Zofran Inj) 4 mg IVP Q6 PRN PRN Reason: Nausea/Vomiting Oseltamivir Phosphate (Tamiflu Cap) 75 mg PO BID [facility] PRN Reason: Protocol Last Admin: 04/11/17 16:16 Dose: 75 mg Pantoprazole Sodium (Protonix Ec Tab) 40 mg PO DAILY PRN PRN Reason: Heartburn Last Admin: 04/06/17 21:50 Dose: 40 mg Pravastatin Sodium (Pravachol) 20 mg PO HS [facility] Last Admin: 04/10/17 21:42 Dose: 20 mg - Labs Labs: 04/11/17 04:25 04/11/17 04:25 - Head Exam Head Exam: NORMAL INSPECTION - Eye Exam Eye Exam: Normal appearance - ENT Exam ENT Exam: Mucous Membranes Moist - Respiratory Exam Respiratory Exam: Clear to Ausculation Bilateral - Cardiovascular Exam Cardiovascular Exam: REGULAR RHYTHM - GI/Abdominal Exam GI & Abdominal Exam: Normal Bowel Sounds - Neurological Exam Neurological Exam: Awake, Oriented x3 - Psychiatric Exam Psychiatric exam: Normal Mood Assessment and Plan (1) Acute bronchitis Status: Acute (2) Bronchitis with influenza Status: Acute (3) Left renal mass Status: Acute - Assessment and Plan (Free Text) Plan: Cont meds Cont tx Cont PT Neb tx discharge plans
[2017-04-11] MEDS: Pantoprazole 40 mg EC Tab PO PRN (20:05)
[2017-04-11] MEDS: Pravastatin Sodium 20 MG TAB PO SCH (21:14)
[2017-04-12] MEDS: Ipratropium 0.02% Inhal Soln (0.5 mg/2.5 ml) UD IH SCH (07:53)
[2017-04-12] MEDS: Levalbuterol 0.63 MG/3 ML Inhal Soln UD INH SCH (07:53)
[2017-04-12] MEDS: guaiFENesin 600 mg ER Tab PO SCH (08:53)
[2017-04-12] MEDS: Calcium-Vit D 500 mg-200 Units Tab UD PO SCH (08:54)
[2017-04-12] MEDS: Levothyroxine 100 MCG TAB PO SCH (08:55)
--- NOTE | 2017-04-12 10:57 | CP.PCM.PN ---
Subjective - Date & Time of Evaluation Date of Evaluation: 04/12/17 Time of Evaluation: 10:30 - Subjective Subjective: NO NEW COMPLAINTS FEELS TIRED LESS SOB Objective - Vital Signs/Intake and Output Vital Signs (last 24 hours): Temp Pulse Resp BP Pulse Ox 97.5 F L 65 20 135/73 98 04/12/17 10:26 04/12/17 08:53 04/12/17 08:00 04/12/17 08:53 04/12/17 08:00 - Medications Medications: Current Medications Acetaminophen (Tylenol 325mg Tab) 650 mg PO Q6 PRN PRN Reason: Pain, moderate (4-7) Last Admin: 04/12/17 10:26 Dose: 650 mg Amlodipine Besylate (Norvasc) 5 mg PO DAILY [facility] Last Admin: 04/12/17 08:53 Dose: 5 mg Aspirin (Ecotrin) 81 mg PO DAILY [facility] Last Admin: 04/12/17 08:52 Dose: 81 mg Calcitriol (Rocaltrol) 0.25 mcg PO TID [facility] Last Admin: 04/12/17 08:55 Dose: 0.25 mcg Calcium/Vitamin D (Oyster Shell Calcium/Vitamin D 500 Mg-200 Iu) 1 tab PO DAILY [facility] Last Admin: 04/12/17 08:54 Dose: 1 tab Gabapentin (Neurontin) 100 mg PO HS [facility] Last Admin: 04/11/17 21:13 Dose: 100 mg Guaifenesin (Mucinex La) 600 mg PO Q12 [facility] Last Admin: 04/12/17 08:53 Dose: 600 mg Ipratropium [place] (Atrovent) 0.5 mg IH RQ8 [facility] Last Admin: 04/12/17 07:53 Dose: 0.5 mg Levalbuterol HCl (Xopenex) 0.63 mg INH RQ8 [facility] Last Admin: 04/12/17 07:53 Dose: 0.63 mg Levothyroxine Sodium (Synthroid) 100 mcg PO DAILY [facility] Last Admin: 04/12/17 08:55 Dose: 100 mcg Metoprolol Tartrate (Lopressor) 25 mg PO BID [facility] Last Admin: 04/12/17 08:52 Dose: 25 mg Ondansetron HCl (Zofran Inj) 4 mg IVP Q6 PRN PRN Reason: Nausea/Vomiting Pantoprazole Sodium (Protonix Ec Tab) 40 mg PO DAILY PRN PRN Reason: Heartburn Last Admin: 04/11/17 20:05 Dose: 40 mg Pravastatin Sodium (Pravachol) 20 mg PO HS [facility] Last Admin: 04/11/17 21:14 Dose: 20 mg - Labs Labs: 04/11/17 04:25 04/11/17 04:25 - Respiratory Exam Respiratory Exam: Clear to Ausculation Bilateral - Cardiovascular Exam Cardiovascular Exam: REGULAR RHYTHM, +S1, +S2 - Extremities Exam Additional comments: NO LE EDEMA LEFT LOWER WITH MILD REDDISH RASH WITH SMALL PETTECHIAE UPON CLOSE INSPECTION( HAS SIGNS OF AMLODIPINE RASH IN MY OPINION) - Additional Findings Additional findings: SON BROUGHT IN LLE ARTERIAL DOPPLER STUDIES THAT DO NOT SHOW ANY SEVERE BLOCKAGES Assessment and Plan - Assessment and Plan (Free Text) Assessment: INFLUENZA CHRONIC LUNG DISEASE S/P AVR FOR HYPERTENSION LEFT RENAL MASS LLE RASH POSSIBLY FROM AMLODIPINE Plan: CONTINUE METOPROLOL AND ASPIRIN AMLODIPINE STOPPED-IF IT IS CAUSING THE RASH IT TAKES AT LEAST A WEEK TO SEE SIGNIFICANT IMPROVEMENT IN MY EXPERIENCE OBSERVE BLOOD PRESSURE OFF AMLODIPINE AND WE CAN START ANOTHER ANTIHYPERTENSIVE AGENT SUCH AN ARB IF NEEDED UROLOGY TO SEE
--- NOTE | 2017-04-12 11:49 | CP.PCM.PN ---
Subjective - Date & Time of Evaluation Date of Evaluation: 04/12/17 Time of Evaluation: 10:25 - Subjective Subjective: Feeling better. Cough markedly improved. Afebrile. Denies SOB or CP. No events overnight. No changes in urination or stools. Objective - Vital Signs/Intake and Output Vital Signs (last 24 hours): Temp Pulse Resp BP Pulse Ox 97.5 F L 65 20 135/73 98 04/12/17 10:26 04/12/17 08:53 04/12/17 08:00 04/12/17 08:53 04/12/17 08:00 - Medications Medications: Current Medications Acetaminophen (Tylenol 325mg Tab) 650 mg PO Q6 PRN PRN Reason: Pain, moderate (4-7) Last Admin: 04/12/17 10:26 Dose: 650 mg Aspirin (Ecotrin) 81 mg PO DAILY [facility] Last Admin: 04/12/17 08:52 Dose: 81 mg Calcitriol (Rocaltrol) 0.25 mcg PO TID [facility] Last Admin: 04/12/17 08:55 Dose: 0.25 mcg Calcium/Vitamin D (Oyster Shell Calcium/Vitamin D 500 Mg-200 Iu) 1 tab PO DAILY [facility] Last Admin: 04/12/17 08:54 Dose: 1 tab Gabapentin (Neurontin) 100 mg PO HS [facility] Last Admin: 04/11/17 21:13 Dose: 100 mg Guaifenesin (Mucinex La) 600 mg PO Q12 [facility] Last Admin: 04/12/17 08:53 Dose: 600 mg Ipratropium [place] (Atrovent) 0.5 mg IH RQ8 [facility] Last Admin: 04/12/17 07:53 Dose: 0.5 mg Levalbuterol HCl (Xopenex) 0.63 mg INH RQ8 [facility] Last Admin: 04/12/17 07:53 Dose: 0.63 mg Levothyroxine Sodium (Synthroid) 100 mcg PO DAILY [facility] Last Admin: 04/12/17 08:55 Dose: 100 mcg Metoprolol Tartrate (Lopressor) 25 mg PO BID [facility] Last Admin: 04/12/17 08:52 Dose: 25 mg Ondansetron HCl (Zofran Inj) 4 mg IVP Q6 PRN PRN Reason: Nausea/Vomiting Pantoprazole Sodium (Protonix Ec Tab) 40 mg PO DAILY PRN PRN Reason: Heartburn Last Admin: 04/11/17 20:05 Dose: 40 mg Pravastatin Sodium (Pravachol) 20 mg PO HS [facility] Last Admin: 04/11/17 21:14 Dose: 20 mg - Labs Labs: 04/11/17 04:25 04/11/17 04:25 - Constitutional Appears: Non-toxic, No Acute Distress - Eye Exam Eye Exam: EOMI, PERRL - ENT Exam ENT Exam: Mucous Membranes Moist - Respiratory Exam Respiratory Exam: NORMAL BREATHING PATTERN. absent: Decreased Breath Sounds, Rales, Wheezes - Cardiovascular Exam Cardiovascular Exam: REGULAR RHYTHM, +S1, +S2. absent: Gallop - GI/Abdominal Exam GI & Abdominal Exam: Soft, Normal Bowel Sounds. absent: Tenderness - Extremities Exam Extremities Exam: absent: Calf Tenderness, Normal Inspection (L/lower leg chronic erythema) - Back Exam Back Exam: absent: CVA tenderness (L), CVA tenderness (R) - Neurological Exam Neurological Exam: Alert, Awake, Oriented x3 - Skin Skin Exam: Warm. absent: Pallor Assessment and Plan - Assessment and Plan (Free Text) Assessment: Influenza Symptoms markedly improved Finished 5 days Tamiflu Stable L/Kidney mass Incidental found on imaging studies Asymptomatic CT abd: Necrotic, malignancy until proven otherwise(Please read full report) Urology consulted. F/U recs IR consult for CT guided biopsy ordered Elevated troponins/CAD -likely chronic -Cardiology consult appreciated -Asymptomatic
--- NOTE | 2017-04-12 12:44 | CP.PCM.DIS ---
Provider - Provider Date of Admission: 04/07/17 12:06 Attending physician: Oliverio Henry MD Primary care physician: Dr Hernandez Consults: Urology. Cardiology Pulmonology Time Spent in preparation of Discharge (in minutes): 35 Hospital Course - Lab Results Lab Results: Most Recent Lab Values WBC 4.4 K/uL (4.8-10.8) L 04/11/17 04:25 RBC 4.19 Mil/uL (3.80-5.20) 04/11/17 04:25 Hgb 12.9 g/dL (12.0-16.0) 04/11/17 04:25 Hct 38.4 % (34.0-47.0) 04/11/17 04:25 MCV 91.7 fl (81.0-99.0) 04/11/17 04:25 MCH 30.8 pg (27.0-31.0) 04/11/17 04:25 MCHC 33.6 g/dL (33.0-37.0) 04/11/17 04:25 RDW 13.1 % (11.5-14.5) 04/11/17 04:25 Plt Count 151 K/uL (130-400) 04/11/17 04:25 MPV 8.3 fl (7.2-11.7) 04/06/17 10:00 Neut % (Auto) 76.8 % (50.0-75.0) H 04/06/17 10:00 Lymph % (Auto) 10.1 % (20.0-40.0) L 04/06/17 10:00 [place] % (Auto) 10.5 % (0.0-10.0) H 04/06/17 10:00 Eos % (Auto) 2.0 % (0.0-4.0) 04/06/17 10:00 Baso % (Auto) 0.6 % (0.0-2.0) 04/06/17 10:00 Neut # (Auto) 4.7 K/uL (1.8-7.0) 04/06/17 10:00 Lymph # (Auto) 0.6 K/uL (1.0-4.3) L 04/06/17 10:00 [place] # (Auto) 0.6 K/uL (0.0-0.8) 04/06/17 10:00 Eos # (Auto) 0.1 K/uL (0.0-0.7) 04/06/17 10:00 Baso # (Auto) 0.0 K/uL (0.0-0.2) 04/06/17 10:00 Sodium 142 mmol/l (132-148) 04/11/17 04:25 Potassium 4.2 MMOL/L (3.6-5.0) 04/11/17 04:25 Chloride 101 mmol/L (98-107) 04/11/17 04:25 Carbon Dioxide 30 mmol/L (22-30) 04/11/17 04:25 Anion Gap 15 (10-20) 04/11/17 04:25 BUN 22 mg/dl (7-17) H 04/11/17 04:25 Creatinine 0.7 mg/dl (0.7-1.2) 04/11/17 04:25 Est GFR ( Amer) > 60 04/11/17 04:25 Est GFR (Non-Af Amer) > 60 04/11/17 04:25 Random Glucose 88 mg/dL (65-105) 04/11/17 04:25 Calcium 8.8 mg/dL (8.4-10.2) 04/11/17 04:25 Total Bilirubin 0.6 mg/dl (0.2-1.3) 04/11/17 04:25 AST 24 U/L (14-36) 04/11/17 04:25 ALT 53 U/L (9-52) H 04/11/17 04:25 Alkaline Phosphatase 47 U/L (38-126) 04/11/17 04:25 Troponin I 0.2610 ng/mL (0.00-0.120) H* 04/07/17 02:25 NT-Pro-B Natriuret Pep 1990 pg/ml (0-900) H 04/06/17 10:00 Total Protein 6.6 G/DL (6.3-8.2) 04/11/17 04:25 Albumin 3.5 g/dL (3.5-5.0) 04/11/17 04:25 Globulin 3.1 gm/dL (2.2-3.9) 04/11/17 04:25 Albumin/Globulin Ratio 1.2 (1.0-2.1) 04/11/17 04:25 Urine Color Yellow (YELLOW) 04/11/17 13:20 Urine Clarity Clear (Clear) 04/11/17 13:20 Urine pH 6.0 (5.0-8.0) 04/11/17 13:20 Ur Specific [place] 1.009 (1.003-1.030) 04/11/17 13:20 Urine Protein Negative mg/dL (NEGATIVE) 04/11/17 13:20 Urine Glucose (UA) Neg mg/dL (Normal) 04/11/17 13:20 Urine Ketones Negative mg/dL (NEGATIVE) 04/11/17 13:20 Urine Blood Negative (NEGATIVE) 04/11/17 13:20 Urine Nitrate Negative (NEGATIVE) 04/11/17 13:20 Urine Bilirubin Negative (NEGATIVE) 04/11/17 13:20 Urine Urobilinogen 0.2-1.0 mg/dL (0.2-1.0) 04/11/17 13:20 Ur Leukocyte Esterase Small [place]/uL (Negative) 04/11/17 13:20 Urine RBC (Auto) < 1 /hpf (0-3) 04/11/17 13:20 Urine Microscopic WBC 7 /hpf (0-5) H 04/11/17 13:20 Urine Bacteria Rare (<OCC) 04/11/17 13:20 Influenza Typ A,B (EIA) Pos for influenza a (NEGATIVE) H 04/06/17 10:00 - Hospital Course Hospital Course: 86 y/o F admitted for Influenza and elevated troponins and found to have a L/ kidney mass on imaging studies. Evaluated by Cardiology, Pulmonology and Urology. Respiratory symptoms improved, patient finished 5 days course of Tamiflu, Trops likely chronic and is decided to be DC home today after Urology recs mass ablation as outpatient and no need for further inpatient studies at this time. Discharge Exam - Head Exam Head Exam: NORMAL INSPECTION Discharge Plan - Discharge Medications Prescriptions: Aspirin [Ecotrin] 81 mg PO DAILY #30 tabec guaiFENesin [Mucinex LA] 600 mg PO Q12 #60 tab Levalbuterol Tartrate [Xopenex Hfa] 0.045 mg IH Q6 PRN #1 inh PRN Reason: Shortness Of Breath Tiotropium [Spiriva] 18 mcg IH DAILY #30 cap - Follow Up Plan Condition: STABLE Disposition: HOME/ ROUTINE Additional Instructions: pt. cleared for d/c to home today by / and f/u with outpatient , Referrals: Cosme Morris MD [Staff Provider] - Lakhwinder Gracia MD [Medical Doctor] -
[2017-04-12] MEDS: Pneumococcal 23-Valent Vaccine IM ONE ×2 (14:23→14:35)
[2017-04-12 15:41] VITALS: BP 128/62; PULSE 61; RESP 17; TEMP 98.5; O2SAT 99
== END 2017-04-12 16:00 | disposition home or self-care (01) | DRG 195 ==
LOC: H.ER 09:05 → INTOOBSV 11:06 → H.ERHOLD 11:06 → H.TEL 14:24 → OBSVTOIN 04-07 12:06
PROVIDERS: ADMIT Family Medicine; ATTEND Family Medicine
PROC: 3E0F7GC Introduction of Other Therapeutic Substance into Respiratory Tract, Via Natural or Artificial Opening (ICD-10-PCS; principal; 2017-04-07)
DX: J10.1 Influenza due to other identified influenza virus with other respiratory manifestations (principal); I35.0 Nonrheumatic aortic (valve) stenosis; I73.9 Peripheral vascular disease, unspecified; J20.9 Acute bronchitis, unspecified; E78.00 Pure hypercholesterolemia, unspecified; E78.5 Hyperlipidemia, unspecified; I10 Essential (primary) hypertension; I25.10 Atherosclerotic heart disease of native coronary artery without angina pectoris; I83.93 Asymptomatic varicose veins of bilateral lower extremities; J42 Unspecified chronic bronchitis; J45.909 Unspecified asthma, uncomplicated; M81.0 Age-related osteoporosis without current pathological fracture; N28.89 Other specified disorders of kidney and ureter; Z79.82 Long term (current) use of aspirin; Z95.3 Presence of xenogenic heart valve; Z96.641 Presence of right artificial hip joint; K29.70 Gastritis, unspecified, without bleeding; Z87.01 Personal history of pneumonia (recurrent); Z79.899 Other long term (current) drug therapy; R21 Rash and other nonspecific skin eruption; T46.1X5A Adverse effect of calcium-channel blockers, initial encounter; Y92.239 Unspecified place in hospital as the place of occurrence of the external cause

== ENCOUNTER 2018-01-17 08:30 | Inpatient (IN) | payer MEDICARE ==
[2018-01-17 08:39] VITALS: BMI 22.0
[2018-01-17] MEDS ORDERED: Sodium Chloride 0.9% 500 ML IV STA (08:39)
[2018-01-17] MEDS ORDERED: Albuterol-Ipratrop 3 mg / 0.5 (3 ml) UD INH STA ×2 (08:39→08:42)
[2018-01-17] MEDS: Albuterol-Ipratrop 3 mg / 0.5 (3 ml) UD IH STA ×2 (08:48→09:09)
--- NOTE | 2018-01-17 08:50 | ED PDOC ---
HPI: SOB/CHF/COPD Time Seen by Provider: 01/17/18 08:34 Chief Complaint (Nursing): Shortness Of Breath Chief Complaint (Provider): Dyspnea History Per: Patient History/Exam Limitations: no limitations Onset/Duration Of Symptoms: Days (1 week) Current Symptoms Are (Timing): Still Present Additional Complaint(s): Pt. with dyspnea, cough, congestion, runny nose. Saw Dr. Barkley who gave her prednisone and symbicort yesterday. Pt. not better so came to the ER. Pt. manuela es chest pain, abd pain, weakness, headaches, dizziness. No back pain. No leg pain. Has chronic left calf mild swelling. Past Medical History Reviewed: Historical Data, Nursing Documentation, Vital Signs - Medical History PMH: CAD, HTN, Hypercholesterolemia, Hypothyroidism, Osteoporosis (with fracture) Denies: HIV, Chronic Kidney Disease - Family History Family History: States: Unknown Family Hx - Home Medications Home Medications: Ambulatory Orders Medication Instructions Recorded Levothyroxine [Synthroid] 100 mcg PO DAILY 11/07/14 Omeprazole [Prilosec] 20 mg PO DAILY PRN 11/07/14 Simvastatin 10 mg PO HS 11/07/14 Calcitriol 0.25 mcg PO TID 04/06/17 Calcium Carbonate/Vitamin D3 1 each PO DAILY 04/06/17 [Calcium 500 + Vit D Caplet] Multivitamin [Multivitamins] 1 cap PO DAILY 04/06/17 Aspirin [Ecotrin] 81 mg PO DAILY #30 tabec 04/11/17 Alendronate [Fosamax] 70 mg PO QWK 01/17/18 Candesartan Cilexetil [Atacand] 8 mg PO DAILY 01/17/18 Gabapentin [Neurontin] 300 mg PO Q12 01/17/18 Levalbuterol Tartrate [Xopenex Hfa] 2 puff IH Q6 PRN 01/17/18 Loratadine [Claritin] 10 mg PO DAILY PRN 01/17/18 predniSONE [predniSONE Tab] 20 mg PO BID 01/17/18 - Allergies Allergies/Adverse Reactions: Allergies Allergy/AdvReac Type Severity Reaction Status Date / Time No Known Allergies Allergy Verified 01/17/18 08:35 Review of Systems ROS Statement: Except As Marked, All Systems Reviewed And Found Negative ENT: Positive for: Nose Congestion Respiratory: Positive for: Cough, Shortness of Breath, SOB with Exertion, Wheezing Physical Exam - Reviewed Nursing Documentation Reviewed: Yes Vital Signs Reviewed: Yes - Physical Exam Appears: Positive for: Non-toxic, No Acute Distress Head Exam: Positive for: ATRAUMATIC, NORMAL INSPECTION, NORMOCEPHALIC Skin: Positive for: Normal Color, Warm, DRY Eye Exam: Positive for: EOMI, Normal appearance, PERRL ENT: Positive for: Nasal Congestion Neck: Positive for: Normal, Painless ROM, Supple Cardiovascular/Chest: Positive for: Regular Rate, Rhythm Respiratory: Positive for: Wheezing, Other (coarse b/l) Gastrointestinal/Abdominal: Positive for: Normal Exam, Soft. Negative for: Tenderness Back: Positive for: Normal Inspection. Negative for: L CVA Tenderness, R CVA Tenderness Extremity: Positive for: Normal ROM, Other (L mild swelling trace pitting). Negative for: Tenderness Neurologic/Psych: Positive for: Alert, cotton stomper II-XII, Oriented. Negative for: Motor/Sensory Deficits - Laboratory Results Result Diagrams: 01/17/18 09:03 01/17/18 09:03 Interpretation Of Abn Labs: [id number] probnp - ECG ECG: Positive for: Interpreted By Me, Viewed By Me Interpretation Of Abn EKG: LBBB same as old - Radiology X-Ray: Interpreted by Me, Viewed By Me X-Ray Interpretation: Other (vascular congestion) - Progress ED Course And Treament: 1247: Stable. Spoke with Dr. Barkley. Wants pt. admitted. Spoke with Dr. Vazquez. Will admit tele obs for failed outpt tx. No chest pain. AAOx3. Improving. Disposition - Clinical Impression Clinical Impression: CHF exacerbation - Patient ED Disposition Is Patient to be Admitted: Yes Counseled Patient/Family Regarding: Studies Performed, Diagnosis - Disposition Disposition Time: 12:00 Condition: FAIR - Pt Status Changed To: Hospital Disposition Of: Observation - POA Present On Arrival: None
[2018-01-17 09:11] LABS: BASO % 0.4 % (0.0-2.0); EOS % 0.3 % (0.0-4.0); HEMOGLOBIN 14.4 g/dL (12.0-16.0); LYMPH # 0.6 K/uL (1.0-4.3); LYMPH % 8.2 % (20.0-40.0); MEAN CELL VOLUME 94.5 fl (81.0-99.0); MEAN CORPUSCULAR HGB CONC 33.9 g/dL (33.0-37.0); MEAN PLATELET VOLUME 8.4 fl (7.2-11.7); MONO # 0.4 K/uL (0.0-0.8); MONO % 5.3 % (0.0-10.0); NEUT # 6.8 K/uL (1.8-7.0); NEUT % 85.8 % (50.0-75.0); NRBC % 0.1 % (0.0-0.0); PLATELET COUNT 233 K/uL (130-400); RED CELL DISTRIBUTION WIDTH 13.5 % (11.5-14.5); WHITE BLOOD COUNT 7.9 K/uL (4.8-10.8)
[2018-01-17 09:12] LABS: ABG ALLEN TEST YES; ARTERIAL BLOOD GAS HCO3 27.2 mmol/L (21-28); ARTERIAL BLOOD GAS O2 SAT 99.4 % (95-98); ARTERIAL BLOOD GAS PCO2 39 mm/Hg (35-45); ARTERIAL BLOOD GAS PH 7.45 (7.35-7.45); ARTERIAL BLOOD GAS PO2 86 mm/Hg (80-100); ARTERIAL BLOOD GAS TCO2 28.3 mmol/L (22-28)
[2018-01-17 09:20] LABS: PROTHROMBIN TIME 11.1 Seconds (9.8-13.1)
[2018-01-17 09:23] LABS: PARTIAL THROMBOPLASTIN TIME 28.6 Seconds (25.6-37.1)
[2018-01-17 09:26] LABS: ALB/GLOB RATIO 1.2 (1.0-2.1); ALBUMIN 4.6 g/dL (3.5-5.0); ALT/SGPT 23 U/L (9-52); AST/SGOT 29 U/L (14-36); BLOOD UREA NITROGEN 21 mg/dl (7-17); CALCIUM 9.4 mg/dL (8.4-10.2); GFR NON-AFRICAN AMERICAN > 60
[2018-01-17 09:33] LABS: B-TYPE NATRIURETIC PEPTIDE 2080 pg/ml (0-900)
[2018-01-17 10:55] LABS: LYMPHOCYTE 8 % (20-50); MONOCYTE 5 % (0-10); NEUTROPHIL 87 % (42-75); PLATELET ESTIMATE NORMAL (NORMAL); TOTAL CELLS COUNTED 100
[2018-01-17 12:23] LABS: URINE BILIRUBIN NEGATIVE (NEGATIVE); URINE BLOOD NEGATIVE (NEGATIVE); URINE CLARITY CLEAR (Clear); URINE COLOR YELLOW (YELLOW); URINE GLUCOSE (UA) NEG (Normal); URINE LEUKOCYTE ESTERASE SMALL Leu/uL (Negative); URINE PROTEIN 30 mg/dL (NEGATIVE); URINE UROBILINOGEN 0.2-1.0 mg/dL (0.2-1.0)
[2018-01-17 12:36] LABS: SQUAMOUS EPITHIAL 2 /hpf (0-5); URINE BACTERIA OCC (<OCC)
--- NOTE | 2018-01-17 12:57 | RAD ---
Date of service: 01/17/2018 HISTORY: Sepsis Patient COMPARISON: 04/06/2017. FINDINGS: LUNGS: No active pulmonary disease. PLEURA: No significant pleural effusion identified, no pneumothorax apparent. CARDIOVASCULAR: No radiographic findings to suggest acute or significant cardiovascular disease. Incidental Finding(s): Postoperative changes related to sternotomy. Atherosclerotic calcifications identified primarily aortic arch. OSSEOUS STRUCTURES: No significant abnormalities. VISUALIZED UPPER ABDOMEN: Normal. OTHER FINDINGS: None. IMPRESSION: No active disease. No significant interval change compared to the prior examination(s).
[2018-01-17] MEDS ORDERED: Aspirin 325 mg EC Tablets PO ONE (13:20)
[2018-01-17] MEDS ORDERED: Patient's Own Med (Levalbuterol Tartrate [Xopenex Hfa] 2 PUFF) IH PRN (14:29)
[2018-01-17] MEDS ORDERED: ALENDRONATE 70 MG TAB PO SCH (14:30)
[2018-01-17] MEDS ORDERED: Albuterol-Ipratrop 3 mg / 0.5 (3 ml) UD INH PRN (14:35)
--- NOTE | 2018-01-17 15:28 | CARD ---
APPROVED REPORT Date of service: 01/17/2018 EKG Measurement Heart [id number] <Conclusion> Sinus rhythm with occasional premature ventricular complexes Left bundle branch block Abnormal ECG
[2018-01-17] MEDS ORDERED: Pneumococcal 23-Valent Vaccine IM ONE (18:41)
[2018-01-17] MEDS: Pravastatin Sodium 20 MG TAB PO SCH (21:14)
[2018-01-18 05:25] LABS: BASO % 0.2 % (0.0-2.0); EOS # 0.1 K/uL (0.0-0.7); EOS % 1.4 % (0.0-4.0); HEMOGLOBIN 13.6 g/dL (12.0-16.0); LYMPH # 1.1 K/uL (1.0-4.3); LYMPH % 15.6 % (20.0-40.0); MEAN CELL VOLUME 92.5 fl (81.0-99.0); MEAN CORPUSCULAR HEMOGLOBIN 31.3 pg (27.0-31.0); MEAN CORPUSCULAR HGB CONC 33.8 g/dL (33.0-37.0); MEAN PLATELET VOLUME 8.2 fl (7.2-11.7); MONO # 0.6 K/uL (0.0-0.8); MONO % 7.6 % (0.0-10.0); NEUT # 5.5 K/uL (1.8-7.0); NEUT % 75.2 % (50.0-75.0); RBC 4.35 Mil/uL (3.80-5.20); RED CELL DISTRIBUTION WIDTH 13.2 % (11.5-14.5); WHITE BLOOD COUNT 7.3 K/uL (4.8-10.8)
[2018-01-18 05:54] LABS: ALB/GLOB RATIO 1.1 (1.0-2.1); ALBUMIN 3.7 g/dL (3.5-5.0); ALT/SGPT 32 U/L (9-52); AST/SGOT 28 U/L (14-36); BLOOD UREA NITROGEN 33 mg/dl (7-17); CALCIUM 8.4 mg/dL (8.4-10.2); GFR NON-AFRICAN AMERICAN > 60
--- NOTE | 2018-01-18 06:41 | CP.PCM.HP ---
History of Present Illness - History of Present Illness History of Present Illness: 87 year old female presents to the ED c/o shortness of breath, cough, congestion, runny nose for the last week with worsening since last night. She states she saw Dr Barkley 2 days ago who Rx prednisone and symbicort w/o improvement and decided to come to ER. Otherwise she denies chest pain, abd pain, weakness, headaches, dizziness. No back pain. No leg pain or edema, she states has chronic left calf mild swelling due to varicose veins. PMD: Dr. Cosme Batres Lumber Salvager: Dr. hastings Aircraft Pilot: Dr. Barkley PMH: CAD, HTN, Hypercholesterolemia, Hypothyroidism, Osteoporosis FMH: mother had dementia- ; father had lung cancer- SurgH: aortic valve replacement, thyroid surgery, right hip surgery 3 years ago SocH: non smoker, no alcohol, no drugs Medications: as bellow Allergies: NKDA Present on Admission - Present on Admission Any Indicators Present on Admission: No Review of Systems - Review of Systems All systems: reviewed and no additional remarkable complaints except (HPI) Past Patient History - Past Medical History & Family History Past Medical History?: Yes - Past Social History Smoking Status: Never Smoked - CARDIAC Hx Cardiac Disorders: Yes Other/Comment: Valve replacement - PULMONARY Hx Respiratory Disorders: No - NEUROLOGICAL Hx Neurological Disorder: No - HEENT Hx HEENT Problems: Yes Hx Cataracts: Yes - RENAL Hx Chronic Kidney Disease: No - ENDOCRINE/METABOLIC Hx Hypothyroidism: Yes - HEMATOLOGICAL/ONCOLOGICAL Hx Human Immunodeficiency Virus (HIV): No - INTEGUMENTARY Hx Dermatological Problems: No - MUSCULOSKELETAL/RHEUMATOLOGICAL Hx Falls: No Hx Osteoporosis: Yes (with fracture) - GASTROINTESTINAL Hx Gastrointestinal Disorders: No - GENITOURINARY/GYNECOLOGICAL Hx Genitourinary Disorders: No - PSYCHIATRIC Hx Psychophysiologic Disorder: No Hx Substance Use: No - SURGICAL HISTORY Hx Surgeries: Yes Hx Cataract Extraction: Yes Hx Cardiac Catheterization: Yes Hx Joint Replacement: Yes (r hip) Hx Valve Replacement: Yes Other/Comment: cardiac valve replacement - ANESTHESIA Hx Anesthesia: Yes Hx Anesthesia Reactions: No Hx Malignant Hyperthermia: No Meds Allergies/Adverse Reactions: Allergies Allergy/AdvReac Type Severity Reaction Status Date / Time No Known Allergies Allergy Verified 01/17/18 08:35 Physical Exam - Constitutional Appears: No Acute Distress - Head Exam Head Exam: NORMAL INSPECTION - Respiratory Exam Respiratory Exam: Clear to Auscultation Bilateral, NORMAL BREATHING PATTERN - Cardiovascular Exam Cardiovascular Exam: REGULAR RHYTHM, +S1, +S2 - GI/Abdominal Exam GI & Abdominal Exam: Normal Bowel Sounds, Soft. absent: Distended, Tenderness - Extremities Exam Extremities exam: Negative for: calf tenderness Additional comments: b/l legs varicose veins noted, DP/PT 2+ - Neurological Exam Neurological exam: Alert, CN II-XII Intact, Oriented x3 - Skin Skin Exam: Dry, Warm Results - Vital Signs Recent Vital Signs: Last Vital Signs Temp 98.1 F 01/18/18 00:30 Pulse 64 01/18/18 00:30 Resp 18 01/18/18 00:30 BP 167/84 H 01/18/18 00:30 Pulse Ox 97 01/18/18 00:30 - Labs Result Diagrams: 01/18/18 04:45 01/18/18 04:45 Labs: Laboratory Results - last 24 hr 01/17/18 01/17/18 01/17/18 08:49 09:03 09:03 WBC 7.9 D RBC 4.50 Hgb 14.4 Hct 42.5 MCV 94.5 D MCH 32.0 H MCHC 33.9 RDW 13.5 Plt Count 233 MPV 8.4 Neut % (Auto) 85.8 H Lymph % (Auto) 8.2 L [place] % (Auto) 5.3 Eos % (Auto) 0.3 Baso % (Auto) 0.4 Neut # (Auto) 6.8 Lymph # (Auto) 0.6 L [place] # (Auto) 0.4 Eos # (Auto) 0.0 Baso # (Auto) 0.0 Neutrophils % (Manual) 87 H Lymphocytes % (Manual) 8 L Monocytes % (Manual) 5 Platelet Estimate Normal RBC Morphology Normal PT INR APTT pCO2 39 pO2 86 HCO3 27.2 ABG pH 7.45 ABG Total CO2 28.3 H ABG O2 Saturation 99.4 H ABG Base Excess 3.0 Kin Test Yes ABG Potassium 4.4 A-a O2 Difference 93.0 Sodium 137.0 141 Chloride 104.0 103 Glucose 121 H Lactate 1.8 Vent Mode Nc FiO2 32.0 Potassium 4.7 Carbon Dioxide 25 Anion Gap 18 BUN 21 H Creatinine 0.5 L Est GFR ( Amer) > 60 Est GFR (Non-Af Amer) > 60 Random Glucose 110 H Calcium 9.4 Phosphorus 4.7 H Magnesium 2.0 Total Bilirubin 0.8 AST 29 ALT 23 Alkaline Phosphatase 45 Troponin I 0.0970 NT-Pro-B Natriuret Pep 2080 H Total Protein 8.3 H Albumin 4.6 Globulin 3.8 Albumin/Globulin Ratio 1.2 Arterial Blood Potassium 4.4 Urine Color Urine Clarity Urine pH Ur Specific [place] Urine Protein Urine Glucose (UA) Urine Ketones Urine Blood Urine Nitrate Urine Bilirubin Urine Urobilinogen Ur Leukocyte Esterase Urine RBC (Auto) Urine Microscopic WBC Ur Squamous Epith Cells Ur Transition Epith Cell Urine Bacteria Influenza Typ A,B (EIA) 01/17/18 01/17/18 01/17/18 09:03 09:03 12:10 WBC RBC Hgb Hct MCV MCH MCHC RDW Plt Count MPV Neut % (Auto) Lymph % (Auto) [place] % (Auto) Eos % (Auto) Baso % (Auto) Neut # (Auto) Lymph # (Auto) [place] # (Auto) Eos # (Auto) Baso # (Auto) Neutrophils % (Manual) Lymphocytes % (Manual) Monocytes % (Manual) Platelet Estimate RBC Morphology PT 11.1 INR 1.0 APTT 28.6 pCO2 pO2 HCO3 ABG pH ABG Total CO2 ABG O2 Saturation ABG Base Excess Kin Test ABG Potassium A-a O2 Difference Sodium Chloride Glucose Lactate Vent Mode FiO2 Potassium Carbon Dioxide Anion Gap BUN Creatinine Est GFR ( Amer) Est GFR (Non-Af Amer) Random Glucose Calcium Phosphorus Magnesium Total Bilirubin AST ALT Alkaline Phosphatase Troponin I NT-Pro-B Natriuret Pep Total Protein Albumin Globulin Albumin/Globulin Ratio Arterial Blood Potassium Urine Color Yellow Urine Clarity Clear Urine pH 6.0 Ur Specific [place] 1.011 Urine Protein 30 Urine Glucose (UA) Neg Urine Ketones Negative Urine Blood Negative Urine Nitrate Negative Urine Bilirubin Negative Urine Urobilinogen 0.2-1.0 Ur Leukocyte Esterase Small Urine RBC (Auto) < 1 Urine Microscopic WBC 8 H Ur Squamous Epith Cells 2 Ur Transition Epith Cell 2 Urine Bacteria Occ H Influenza Typ A,B (EIA) Negative for flu a/b 01/18/18 01/18/18 04:45 04:45 WBC 7.3 RBC 4.35 Hgb 13.6 Hct 40.3 MCV 92.5 D MCH 31.3 H MCHC 33.8 RDW 13.2 Plt Count 190 MPV 8.2 Neut % (Auto) 75.2 H Lymph % (Auto) 15.6 L [place] % (Auto) 7.6 Eos % (Auto) 1.4 Baso % (Auto) 0.2 Neut # (Auto) 5.5 Lymph # (Auto) 1.1 [place] # (Auto) 0.6 Eos # (Auto) 0.1 Baso # (Auto) 0.0 Neutrophils % (Manual) Lymphocytes % (Manual) Monocytes % (Manual) Platelet Estimate RBC Morphology PT INR APTT pCO2 pO2 HCO3 ABG pH ABG Total CO2 ABG O2 Saturation ABG Base Excess Kin Test ABG Potassium A-a O2 Difference Sodium 141 Chloride 102 Glucose Lactate Vent Mode FiO2 Potassium 4.1 Carbon Dioxide 33 H Anion Gap 10 BUN 33 H Creatinine 0.7 Est GFR ( Amer) > 60 Est GFR (Non-Af Amer) > 60 Random Glucose 98 Calcium 8.4 Phosphorus Magnesium Total Bilirubin 0.5 AST 28 ALT 32 Alkaline Phosphatase 40 Troponin I NT-Pro-B Natriuret Pep Total Protein 7.1 Albumin 3.7 Globulin 3.4 Albumin/Globulin Ratio 1.1 Arterial Blood Potassium Urine Color Urine Clarity Urine pH Ur Specific [place] Urine Protein Urine Glucose (UA) Urine Ketones Urine Blood Urine Nitrate Urine Bilirubin Urine Urobilinogen Ur Leukocyte Esterase Urine RBC (Auto) Urine Microscopic WBC Ur Squamous Epith Cells Ur Transition Epith Cell Urine Bacteria Influenza Typ A,B (EIA) Assessment & Plan - Assessment and Plan (Free Text) Assessment: 87 yo female admitted for evaluation and management of worsening dyspnea and cough. Plan: - VSS stable - likely 2/2 to CHF - last echo 03/2017: EF 60%, bioprosthetic AV with apparent normal function, mild to moderate MR and TR - Elevated PBNP - rest of labs reviewed and wnl - doing better now - on lasix - cardio consulted - Pulmonology consulted - home meds resumed - rest of plan ans ordered case seen and examined with Dr Ayala.
[2018-01-18] MEDS: Levothyroxine 100 MCG TAB PO SCH (06:50)
[2018-01-18] MEDS ORDERED: Influenza Vaccine 60 MCG/0.5 ML SYR (3 yr & up) IM ONE (07:06)
[2018-01-18] MEDS: Multivitamin With Minerals Tab PO SCH (10:13)
[2018-01-18] MEDS: Pantoprazole 20 mg EC Tab PO SCH (10:13)
[2018-01-18] MEDS: Calcium-Vit D 500 mg-200 Units Tab UD PO SCH (10:14)
[2018-01-18] MEDS ORDERED: Albuterol 0.083% Inhal Sol (2.5 mg/3 mL) UD INH PRN (10:20)
[2018-01-18] MEDS ORDERED: methylPREDNISolone 40 MG in Sodium Chloride 0.9% 50 ML IVPB SCH (10:30)
--- NOTE | 2018-01-18 10:40 | CP.PCM.CON ---
History of Present Illness - History of Present Illness History of Present Illness: This 87-year-old [place] female was initially seen on 01/16 as an outpatient complaining of shortness of breath and wheezing which had been ongoing for approximately one week prior to her visit. She denied any fever or chills and also did not complain of any chest pain or hemoptysis. There is minimal sputum production which was mucoid in character. At that time diffuse inspiratory and expiratory low pitched wheezing was appreciated throughout both lung griffith but the patient declined hospitalization. She was given treatment with nebulized albuterol x2 as well as one treatment with glycopyrrolate after which she did appear to be slightly improved. She was given prescription for prednisone 10 mg tablets 2 tablets twice daily and was allowed to go home. She was to continue her Symbicort 2 puffs twice daily but the dosage was increased to 160/4.5. She was instructed to immediately go to the emergency room if her condition didn't improve overnight. The following morning she apparently has continued to have difficulty breathing with cough and audible wheezing and presented to the emergency room as instructed. 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 There is no history of coronary artery disease, diabetes, asthma, tuberculosis, liver diseas e or renal disease. Past surgical history includes repair of a right hip fracture and repeat fractu re requiring right hip arthroplasty 4 years ago. Bioprosthetic aortic valve replacement 3 years ago. Subtotal thyroidectomy. Allergies: No known drug seasonal allergies. Family history: Fatherlung cancer. Motherheart disease. Brothercerebrovascular accident. One sister with appendicitis and peritonitis. Social history: Never smoker. No alcohol intake. She denies illicit drug use Past Patient History - Past Medical History & Family History Past Medical History?: Yes - Past Social History Smoking Status: Never Smoked Chewing Tobacco Use: No Cigar Use: No Alcohol: None Drugs: Denies - CARDIAC Hx Hypercholesterolemia: Yes Hx Hypertension: Yes Hx Peripheral Vascular Disease: Yes Other/Comment: Aortic Valve replacement - PULMONARY Hx Bronchitis: Yes - NEUROLOGICAL Hx Neurological Disorder: No - HEENT Hx Cataracts: Yes - RENAL Hx Chronic Kidney Disease: No - ENDOCRINE/METABOLIC Hx Hypothyroidism: Yes - HEMATOLOGICAL/ONCOLOGICAL Hx Blood Disorders: No Hx Human Immunodeficiency Virus (HIV): No - INTEGUMENTARY Hx Dermatological Problems: No - MUSCULOSKELETAL/RHEUMATOLOGICAL Hx Falls: No Hx Osteoporosis: Yes (with fracture) - GASTROINTESTINAL Hx Gastrointestinal Disorders: No - GENITOURINARY/GYNECOLOGICAL Hx Genitourinary Disorders: No - PSYCHIATRIC Hx Psychophysiologic Disorder: No Hx Substance Use: No - SURGICAL HISTORY Hx Surgeries: Yes Hx Cataract Extraction: Yes Hx Cardiac Catheterization: Yes Hx Joint Replacement: Yes (r hip) Hx Valve Replacement: Yes Other/Comment: aortic valve replacement - ANESTHESIA Hx Anesthesia: Yes Hx Anesthesia Reactions: No Hx Malignant Hyperthermia: No Meds Allergies/Adverse Reactions: Allergies Allergy/AdvReac Type Severity Reaction Status Date / Time No Known Allergies Allergy Verified 01/17/18 08:35 - Medications Medications: Current Medications Albuterol Sulfate (Albuterol 0.083% Inhal Molly (2.5 Mg/3 Ml) Ud) 2.5 mg INH RQ4 PRN PRN Reason: Shortness of Breath Albuterol/Ipratropium (Duoneb 3 Mg/0.5 Mg (3 Ml) Ud) 3 ml INH RQID [facility] Alendronate Sodium (Fosamax) 70 mg PO QWK [facility] Aspirin (Ecotrin) 81 mg PO DAILY [facility] Last Admin: 01/18/18 10:14 Dose: 81 mg Benzonatate (Tessalon Perles) 100 mg PO Q8 PRN PRN Reason: Cough Last Admin: 01/18/18 06:50 Dose: 100 mg Calcium/Vitamin D (Oyster Shell Calcium/Vitamin D 500 Mg-200 Iu) 1 tab PO DAILY [facility] Last Admin: 01/18/18 10:14 Dose: 1 tab Furosemide (Lasix) 40 mg IV DAILY [facility] Last Admin: 01/18/18 10:13 Dose: 40 mg Gabapentin (Neurontin) 300 mg PO Q12 [facility] Last Admin: 01/18/18 10:13 Dose: 300 mg Levothyroxine Sodium (Synthroid) 100 mcg PO DAILY@0630 [facility] Last Admin: 01/18/18 06:50 Dose: 100 mcg Losartan Potassium (Cozaar) 25 mg PO DAILY [facility] Last Admin: 01/18/18 10:14 Dose: 25 mg Methylprednisolone (Solu-Medrol) 40 mg IVP BID [facility] Metoprolol Tartrate (Lopressor) 25 mg PO DAILY [facility] Last Admin: 01/18/18 10:14 Dose: 25 mg Multivitamins/Minerals (Therapeutic-M Tab) 1 tab PO DAILY [facility] Last Admin: 01/18/18 10:13 Dose: 1 tab Pantoprazole Sodium (Protonix Ec Tab) 20 mg PO DAILY [facility] Last Admin: 01/18/18 10:13 Dose: 20 mg Pravastatin Sodium (Pravachol) 20 mg PO HS [facility] Last Admin: 01/17/18 21:14 Dose: 20 mg Physical Exam - Additional Findings Additional findings: She appears to be in moderate distress. Occasional coughing is productive of a small quantity of white mucoid sputum. There is no palpable lymphadenopathy. The pharynx is pink and mucous membranes are moist. Nasal passages are patent bilaterally. No dullness on chest percussion. Equal expansion. Diffuse low pitched inspiratory and expiratory wheezes are heard bilaterally with coarse rhonchi. No bronchial breathing or egophony. No rales are appreciated due to noisy respiration. Heart sounds are difficult to auscultate because of noisy breathing. Systolic ejection murmur is present at the base. Abdomen is soft and nontender with normal bowel sounds. A compressive stocking is present on the left lower extremity. No dependent edema of the right lower extremity. No cyanosis. Results - Vital Signs Recent Vital Signs: Last Vital Signs Temp 97.5 F L 01/18/18 08:11 Pulse 62 01/18/18 10:16 Resp 20 01/18/18 08:11 BP 170/74 H 01/18/18 10:16 Pulse Ox 99 01/18/18 08:11 - Labs Result Diagrams: 01/18/18 04:45 01/18/18 04:45 Labs: Laboratory Results - last 24 hr 01/17/18 01/17/18 01/18/18 09:03 12:10 04:45 WBC 7.3 RBC 4.35 Hgb 13.6 Hct 40.3 MCV 92.5 D MCH 31.3 H MCHC 33.8 RDW 13.2 Plt Count 190 MPV 8.2 Neut % (Auto) 75.2 H Lymph % (Auto) 15.6 L [place] % (Auto) 7.6 Eos % (Auto) 1.4 Baso % (Auto) 0.2 Neut # (Auto) 5.5 Lymph # (Auto) 1.1 [place] # (Auto) 0.6 Eos # (Auto) 0.1 Baso # (Auto) 0.0 Neutrophils % (Manual) 87 H Lymphocytes % (Manual) 8 L Monocytes % (Manual) 5 Platelet Estimate Normal RBC Morphology Normal Sodium Potassium Chloride Carbon Dioxide Anion Gap BUN Creatinine Est GFR ( Amer) Est GFR (Non-Af Amer) Random Glucose Calcium Total Bilirubin AST ALT Alkaline Phosphatase Total Protein Albumin Globulin Albumin/Globulin Ratio Urine Color Yellow Urine Clarity Clear Urine pH 6.0 Ur Specific [place] 1.011 Urine Protein 30 Urine Glucose (UA) Neg Urine Ketones Negative Urine Blood Negative Urine Nitrate Negative Urine Bilirubin Negative Urine Urobilinogen 0.2-1.0 Ur Leukocyte Esterase Small Urine RBC (Auto) < 1 Urine Microscopic WBC 8 H Ur Squamous Epith Cells 2 Ur Transition Epith Cell 2 Urine Bacteria Occ H 01/18/18 04:45 WBC RBC Hgb Hct MCV MCH MCHC RDW Plt Count MPV Neut % (Auto) Lymph % (Auto) [place] % (Auto) Eos % (Auto) Baso % (Auto) Neut # (Auto) Lymph # (Auto) [place] # (Auto) Eos # (Auto) Baso # (Auto) Neutrophils % (Manual) Lymphocytes % (Manual) Monocytes % (Manual) Platelet Estimate RBC Morphology Sodium 141 Potassium 4.1 Chloride 102 Carbon Dioxide 33 H Anion Gap 10 BUN 33 H Creatinine 0.7 Est GFR ( Amer) > 60 Est GFR (Non-Af Amer) > 60 Random Glucose 98 Calcium 8.4 Total Bilirubin 0.5 AST 28 ALT 32 Alkaline Phosphatase 40 Total Protein 7.1 Albumin 3.7 Globulin 3.4 Albumin/Globulin Ratio 1.1 Urine Color Urine Clarity Urine pH Ur Specific [place] Urine Protein Urine Glucose (UA) Urine Ketones Urine Blood Urine Nitrate Urine Bilirubin Urine Urobilinogen Ur Leukocyte Esterase Urine RBC (Auto) Urine Microscopic WBC Ur Squamous Epith Cells Ur Transition Epith Cell Urine Bacteria Assessment & Plan (1) Respiratory distress, acute Status: Acute Priority: High (2) Acute bronchitis Status: Acute Priority: High (3) COPD with acute exacerbation Status: Acute Priority: High - Assessment and Plan (Free Text) Assessment: Patient has failed outpatient treatment with continued dyspnea and productive cough at rest. Initial chest x-ray does not reveal and consolidation or effusion, but repeat study requested. Continue treatment with scheduled aerosol therapy and parenteral corticosteroids. Influenza studies negative, Mycoplasma and alpha 1 antitrypsin requested. Cardiology evaluation initiated way as well. - Date & Time Date: 01/18/18 Time: 10:40
[2018-01-18] MEDS: MethylPREDNISolone 40 mg Vial IVP SCH ×2 (11:02→16:52)
--- NOTE | 2018-01-18 11:02 | CP.PCM.CON ---
History of Present Illness - History of Present Illness History of Present Illness: THE PATIENT IS AN 87 YEAR OLD FEMALE WITH A HISTORY OF AVR WITH A TISSUE VALVE FOR AORTIC STENOSIS ABOUT 5 YEARS AGO, HYPERTENSION, HYPERLIPIDEMIA, COPD AND HYPOTHYROIDISM. SHE DOES NOT HAVE CAD AND HER CORONARY ARTERIES WERE NORMAL ON HER CARDIAC CATH DONE PRIOR TO THE AVR. SHE STATES THAT FOR ABOUT A WEEK AND A HALF SHE HAS BEEN GETTING MORE AND MORE SOB AND HAS A COUGH. IT IS OF NOTE THAT HER SON HAD A COLD ABOUT 2 WEEKS AGO. SHE SAW DR KELLY 2 DAYS AGO AND HE ADVISED ADMISSION TO THE HOSPITAL AND BUT SHE DECLINED SO SHE WAS PRESCRIBED PREDNISONE AND SYMBICORT. SHE FELT MUCH WORSE AND CAME TO THE ER YESTERDAY AND WAS TREATED AND ADMITTED. SHE FEELS A LITTLE BETTER TODAY. SHE DENIES CHEST PAIN OR PALPITATIONS. Past Patient History - Past Medical History & Family History Past Medical History?: Yes - Past Social History Smoking Status: Never Smoked Chewing Tobacco Use: No Cigar Use: No Alcohol: None Drugs: Denies - CARDIAC Hx Hypercholesterolemia: Yes Hx Hypertension: Yes Hx Peripheral Vascular Disease: Yes Other/Comment: Aortic Valve replacement - PULMONARY Hx Bronchitis: Yes - NEUROLOGICAL Hx Neurological Disorder: No - HEENT Hx Cataracts: Yes - RENAL Hx Chronic Kidney Disease: No - ENDOCRINE/METABOLIC Hx Hypothyroidism: Yes - HEMATOLOGICAL/ONCOLOGICAL Hx Blood Disorders: No Hx Human Immunodeficiency Virus (HIV): No - INTEGUMENTARY Hx Dermatological Problems: No - MUSCULOSKELETAL/RHEUMATOLOGICAL Hx Falls: No Hx Osteoporosis: Yes (with fracture) - GASTROINTESTINAL Hx Gastrointestinal Disorders: No - GENITOURINARY/GYNECOLOGICAL Hx Genitourinary Disorders: No - PSYCHIATRIC Hx Psychophysiologic Disorder: No Hx Substance Use: No - SURGICAL HISTORY Hx Surgeries: Yes Hx Cataract Extraction: Yes Hx Cardiac Catheterization: Yes Hx Joint Replacement: Yes (r hip) Hx Valve Replacement: Yes Other/Comment: aortic valve replacement - ANESTHESIA Hx Anesthesia: Yes Hx Anesthesia Reactions: No Hx Malignant Hyperthermia: No Meds Allergies/Adverse Reactions: Allergies Allergy/AdvReac Type Severity Reaction Status Date / Time No Known Allergies Allergy Verified 01/17/18 08:35 - Medications Medications: Current Medications Albuterol Sulfate (Albuterol 0.083% Inhal Molly (2.5 Mg/3 Ml) Ud) 2.5 mg INH RQ4 PRN PRN Reason: Shortness of Breath Albuterol/Ipratropium (Duoneb 3 Mg/0.5 Mg (3 Ml) Ud) 3 ml INH RQID [facility] Alendronate Sodium (Fosamax) 70 mg PO QWK [facility] Aspirin (Ecotrin) 81 mg PO DAILY [facility] Last Admin: 01/18/18 10:14 Dose: 81 mg Benzonatate (Tessalon Perles) 100 mg PO Q8 PRN PRN Reason: Cough Last Admin: 01/18/18 06:50 Dose: 100 mg Calcium/Vitamin D (Oyster Shell Calcium/Vitamin D 500 Mg-200 Iu) 1 tab PO DAILY [facility] Last Admin: 01/18/18 10:14 Dose: 1 tab Furosemide (Lasix) 40 mg IV DAILY [facility] Last Admin: 01/18/18 10:13 Dose: 40 mg Gabapentin (Neurontin) 300 mg PO Q12 [facility] Last Admin: 01/18/18 10:13 Dose: 300 mg Levothyroxine Sodium (Synthroid) 100 mcg PO DAILY@0630 [facility] Last Admin: 01/18/18 06:50 Dose: 100 mcg Losartan Potassium (Cozaar) 25 mg PO DAILY [facility] Last Admin: 01/18/18 10:14 Dose: 25 mg Methylprednisolone (Solu-Medrol) 40 mg IVP BID [facility] Metoprolol Tartrate (Lopressor) 25 mg PO DAILY [facility] Last Admin: 01/18/18 10:14 Dose: 25 mg Multivitamins/Minerals (Therapeutic-M Tab) 1 tab PO DAILY [facility] Last Admin: 01/18/18 10:13 Dose: 1 tab Pantoprazole Sodium (Protonix Ec Tab) 20 mg PO DAILY [facility] Last Admin: 01/18/18 10:13 Dose: 20 mg Pravastatin Sodium (Pravachol) 20 mg PO HS [facility] Last Admin: 01/17/18 21:14 Dose: 20 mg Physical Exam - Respiratory Exam Respiratory Exam: Decreased Breath Sounds - Cardiovascular Exam Cardiovascular Exam: REGULAR RHYTHM, +S1, +S2, Systolic Murmur - Extremities Exam Additional comments: NO SIGNIFICANT LE EDEMA - Additional Findings Additional findings: ELG NSR, LBBB TROPONIN NORMAL PBNP 2079(PROBABLY NORMAL FOR AGE AND COPD) CXR CHRONIC CHANGES AND NO CONGESTION IN MY OPNION ECHO MAR 2017, NORMAL LV WITH LVEF OF 60%, MILD TO MODERATE MR, MILD TR Results - Vital Signs Recent Vital Signs: Last Vital Signs Temp 97.5 F L 01/18/18 08:11 Pulse 62 01/18/18 10:16 Resp 20 01/18/18 08:11 BP 170/74 H 01/18/18 10:16 Pulse Ox 99 01/18/18 08:11 - Labs Result Diagrams: 01/18/18 04:45 01/18/18 04:45 Labs: Laboratory Results - last 24 hr 01/17/18 01/18/18 01/18/18 12:10 04:45 04:45 WBC 7.3 RBC 4.35 Hgb 13.6 Hct 40.3 MCV 92.5 D MCH 31.3 H MCHC 33.8 RDW 13.2 Plt Count 190 MPV 8.2 Neut % (Auto) 75.2 H Lymph % (Auto) 15.6 L [place] % (Auto) 7.6 Eos % (Auto) 1.4 Baso % (Auto) 0.2 Neut # (Auto) 5.5 Lymph # (Auto) 1.1 [place] # (Auto) 0.6 Eos # (Auto) 0.1 Baso # (Auto) 0.0 Sodium 141 Potassium 4.1 Chloride 102 Carbon Dioxide 33 H Anion Gap 10 BUN 33 H Creatinine 0.7 Est GFR ( Amer) > 60 Est GFR (Non-Af Amer) > 60 Random Glucose 98 Calcium 8.4 Total Bilirubin 0.5 AST 28 ALT 32 Alkaline Phosphatase 40 Total Protein 7.1 Albumin 3.7 Globulin 3.4 Albumin/Globulin Ratio 1.1 Urine Color Yellow Urine Clarity Clear Urine pH 6.0 Ur Specific [place] 1.011 Urine Protein 30 Urine Glucose (UA) Neg Urine Ketones Negative Urine Blood Negative Urine Nitrate Negative Urine Bilirubin Negative Urine Urobilinogen 0.2-1.0 Ur Leukocyte Esterase Small Urine RBC (Auto) < 1 Urine Microscopic WBC 8 H Ur Squamous Epith Cells 2 Ur Transition Epith Cell 2 Urine Bacteria Occ H Assessment & Plan - Assessment and Plan (Free Text) Assessment: ACUTE EXACERBATION OF COPD AVR HYPERTENSION HYPERLIPIDEMIA HYPOTHYROIDISM THE PATIENT IS NOT PRESENTLY IN CHF Plan: CONTINUE O2, LOSARTAN, METOPROLOL, PRAVASTATIN, SOLUMEDROL AND COPD MEDICATIONS
[2018-01-18] MEDS ORDERED: Iohexol 300 100 ML IJ ONE (11:26)
[2018-01-18] MEDS ORDERED: Sodium Chloride 0.9% 50 ML IV ONE (11:26)
[2018-01-18] MEDS: Albuterol-Ipratrop 3 mg / 0.5 (3 ml) UD INH SCH ×3 (12:00→19:23)
--- NOTE | 2018-01-18 12:11 | CT ---
Date of service: 01/18/2018 PROCEDURE: CT Abdomen and Pelvis with contrast HISTORY: necrotic renal mass f/u COMPARISON: 04/10/2017 CT abdomen and pelvis. Summary of findings on the comparison examination:4.1 centimeter necrotic mass in the upper pole of the left kidney consistent with renal cell carcinoma TECHNIQUE: Intravenous contrast dose: 95.1 Radiation dose: Total exam DLP = 592.46 mGy-cm. This CT exam was performed using one or more of the following dose reduction techniques: Automated exposure control, adjustment of the mA and/or kV according to patient size, and/or use of iterative reconstruction technique. FINDINGS: LOWER THORAX: Unremarkable. LIVER: Unremarkable. No gross lesion or ductal dilatation. GALLBLADDER AND BILE DUCTS: Unremarkable. PANCREAS: Unremarkable. No gross lesion or ductal dilatation. SPLEEN: Unremarkable. ADRENALS: Unremarkable. No mass. KIDNEYS AND URETERS: Left kidney: Currently the left renal mass measures 4.1 x 5.7 x 6 cm. Mass is solid, well-circumscribed with central necrosis and appears to be well in capsulated. No evidence of extension beyond the kidney. No visible retroperitoneal adenopathy. At a comparable level on the prior study the mass measured 3.9 x 5.1 x 5.7 cm. Right kidney: Unremarkable. No hydronephrosis. No solid mass. Incidental finding(s): Medial midpole cyst 1.6 x 1.5 cm. VASCULATURE: Unremarkable. No aortic aneurysm. No atherosclerotic calcification or mural plaque present. BOWEL: Constipation without fecal impaction or obstruction. APPENDIX: Normal appendix. PERITONEUM: Unremarkable. No free fluid. No free air. LYMPH NODES: Unremarkable. No enlarged lymph nodes. BLADDER: Unremarkable. REPRODUCTIVE: Unremarkable appearing postmenopausal uterus with calcifications consistent with calcified fibroids. Pessary device identified. BONES: No acute fracture. Stable postoperative findings proximal right femur. OTHER FINDINGS: None. IMPRESSION: Measurable increase in size of the well in capsulated left renal mass. No evidence of local extension, local, regional or distant metastatic disease.
--- NOTE | 2018-01-18 13:16 | RAD ---
Date of service: 01/18/2018 HISTORY: cough COMPARISON: 01/17/2018 TECHNIQUE: Chest PA and lateral FINDINGS: LUNGS: No consolidation. The medial infrahilar bronchovascular markings appear slightly more prominent-some minimal bronchial thickening/inflammatory changes here can result in this appearance a minimal bronchiectasis here is a consideration. No more extensive or focal dense consolidation noted. PLEURA: No significant pleural effusion identified. No pneumothorax apparent. CARDIOVASCULAR: There is presence of aortic atherosclerotic calcification on x-ray. Minimal cardiomegaly . No significant appearing pulmonary venous congestion. Valvular prosthesis present OSSEOUS STRUCTURES: Along the anterior right 5th or 6th rib there is focal increased density this is unchanged in appearance with the prior study as well as the a CT chest study consistent with a healed are right anterior rib fracture here (CT study 04/07/2017) The prior anterior osteoporotic type compression fractures T10 and T11 with out retropulsion of ossific fragments into the posterior spinal canal are stable in appearance with the 05/17/2016 study. Midline sternotomy wires-present and similar Generalized osteopenia. Bilateral shoulder arthrosis. VISUALIZED UPPER ABDOMEN: Normal. OTHER FINDINGS: None. IMPRESSION: No dense consolidative infiltrate appreciated. Symmetrical bi basilar medial possible bronchial thickening-nonspecific inflammatory changes-are favored. Can be seen with mild bronchiectasis-interval increased conspicuity suggested.
[2018-01-18] MEDS: Pravastatin Sodium 20 MG TAB PO SCH (22:00)
[2018-01-19] MEDS: Levothyroxine 100 MCG TAB PO SCH (06:45)
[2018-01-19] MEDS: Albuterol-Ipratrop 3 mg / 0.5 (3 ml) UD INH SCH ×4 (07:23→19:32)
[2018-01-19] MEDS: Multivitamin With Minerals Tab PO SCH (08:37)
[2018-01-19] MEDS: MethylPREDNISolone 40 mg Vial IVP SCH ×2 (08:37→17:32)
[2018-01-19] MEDS: Pantoprazole 20 mg EC Tab PO SCH (08:38)
[2018-01-19] MEDS: Calcium-Vit D 500 mg-200 Units Tab UD PO SCH (08:38)
--- NOTE | 2018-01-19 09:18 | CP.PCM.PN ---
Subjective - Date & Time of Evaluation Date of Evaluation: 01/19/18 Time of Evaluation: 09:18 - Subjective Subjective: Case discussed with cardiology this morning. EMR entries and VS were reviewed. Seated up on edge of the bed. Noted to still have a very congested cough. Very limited ability to expectorate, likely as a result of right vocal cord dysfunction. apparently had an episode this morning of 'choking' when taking some medication. This has been noted to occur at home as well, although thankfully only rarely. A CT of the abdomen and pelvis was done yesterday, and in review of the lower lobes there is noted mild cylindrical bronchiectasis with significant thickening of the bronchial mucosa; very likely as a secondary effect of chronic aspiration and inability to easily clear secretions from the airways. On exam she appears comfortable when seated quietly. SpO2 was 95% while on nasal canula. Breathing becomes audible without a stethoscope when she is asked to breathe deeply. Her cough is essentially non-productive even when coached. The neck is supple and the trachea midline. Coarse rhonchi are still present, right > left, but less than the day prior. No audible wheezes or bronchial breath sounds are heard. Too much noise to hear any rales. Heart sounds are difficult to hear as well, but the rhythm is regular. Trace dependant edema is present in the LLE, but no cyanosis noted. Bronchiectasis with bronchorrhea, will add broad spectrum antibiotic to the regimen. Continue to reduce the corticosteroid dosing again today. Continue aerosol therapies QID via nebulizer. Speech therapy eval for swallowing techniques education (right vocal cord paralysis). Objective - Vital Signs/Intake and Output Vital Signs (last 24 hours): Temp Pulse Resp BP Pulse Ox 96.9 F L 79 18 155/82 H 94 L 01/19/18 08:13 01/19/18 08:37 01/19/18 08:13 01/19/18 08:37 01/19/18 08:13 - Medications Medications: Current Medications Albuterol Sulfate (Albuterol 0.083% Inhal Molly (2.5 Mg/3 Ml) Ud) 2.5 mg INH RQ4 PRN PRN Reason: Shortness of Breath Albuterol/Ipratropium (Duoneb 3 Mg/0.5 Mg (3 Ml) Ud) 3 ml INH RQID [facility] Last Admin: 01/19/18 07:23 Dose: 3 ml Alendronate Sodium (Fosamax) 70 mg PO QWK [facility] Aspirin (Ecotrin) 81 mg PO DAILY [facility] Last Admin: 01/19/18 08:37 Dose: 81 mg Benzonatate (Tessalon Perles) 100 mg PO Q8 PRN PRN Reason: Cough Last Admin: 01/19/18 06:46 Dose: 100 mg Calcium/Vitamin D (Oyster Shell Calcium/Vitamin D 500 Mg-200 Iu) 1 tab PO DAILY [facility] Last Admin: 01/19/18 08:38 Dose: 1 tab Gabapentin (Neurontin) 300 mg PO Q12 [facility] Last Admin: 01/19/18 08:37 Dose: 300 mg Levothyroxine Sodium (Synthroid) 100 mcg PO DAILY@0630 [facility] Last Admin: 01/19/18 06:45 Dose: 100 mcg Losartan Potassium (Cozaar) 25 mg PO DAILY [facility] Last Admin: 01/19/18 08:37 Dose: 25 mg Methylprednisolone (Solu-Medrol) 40 mg IVP BID [facility] Last Admin: 01/19/18 08:37 Dose: 40 mg Metoprolol Tartrate (Lopressor) 25 mg PO DAILY [facility] Last Admin: 01/19/18 08:37 Dose: 25 mg Multivitamins/Minerals (Therapeutic-M Tab) 1 tab PO DAILY [facility] Last Admin: 01/19/18 08:37 Dose: 1 tab Pantoprazole Sodium (Protonix Ec Tab) 20 mg PO DAILY [facility] Last Admin: 01/19/18 08:38 Dose: 20 mg Pravastatin Sodium (Pravachol) 20 mg PO HS [facility] Last Admin: 01/18/18 22:00 Dose: 20 mg - Labs Labs: 01/18/18 04:45 01/18/18 04:45 PT 11.1 Seconds (9.8-13.1) 01/17/18 09:03 INR 1.0 01/17/18 09:03 APTT 28.6 Seconds (25.6-37.1) 01/17/18 09:03 Assessment and Plan (1) Respiratory distress, acute Status: Acute (2) Acute bronchitis Status: Acute (3) COPD with acute exacerbation Status: Acute
[2018-01-19] MEDS ORDERED: Sodium Chloride 3% for Inhalation 4 ML VIAL.NEB IH PRN (09:59)
--- NOTE | 2018-01-19 11:09 | CP.PCM.PN ---
Subjective - Date & Time of Evaluation Date of Evaluation: 01/19/18 Time of Evaluation: 09:45 - Subjective Subjective: NO CHEST PAIN BREATHING A LITTLE BETTER TODAY STILL HAS A COUGH HAD A CHOCKING SENSATION WHEN SHE SWALLOWED A PILL EARLIER IN THE AM Objective - Vital Signs/Intake and Output Vital Signs (last 24 hours): Temp Pulse Resp BP Pulse Ox 96.9 F L 79 18 155/82 H 94 L 01/19/18 08:13 01/19/18 08:37 01/19/18 08:13 01/19/18 08:37 01/19/18 08:13 - Medications Medications: Current Medications Albuterol Sulfate (Albuterol 0.083% Inhal Molly (2.5 Mg/3 Ml) Ud) 2.5 mg INH RQ4 PRN PRN Reason: Shortness of Breath Albuterol/Ipratropium (Duoneb 3 Mg/0.5 Mg (3 Ml) Ud) 3 ml INH RQID [facility] Last Admin: 01/19/18 07:23 Dose: 3 ml Alendronate Sodium (Fosamax) 70 mg PO QWK [facility] Aspirin (Ecotrin) 81 mg PO DAILY [facility] Last Admin: 01/19/18 08:37 Dose: 81 mg Benzonatate (Tessalon Perles) 100 mg PO Q8 PRN PRN Reason: Cough Last Admin: 01/19/18 06:46 Dose: 100 mg Calcium/Vitamin D (Oyster Shell Calcium/Vitamin D 500 Mg-200 Iu) 1 tab PO DAILY [facility] Last Admin: 01/19/18 08:38 Dose: 1 tab Gabapentin (Neurontin) 300 mg PO Q12 [facility] Last Admin: 01/19/18 08:37 Dose: 300 mg Cefepime HCl 1 gm/ Sodium (Chloride) 100 mls @ 100 mls/hr IVPB Q12 [facility]; Protocol Levothyroxine Sodium (Synthroid) 100 mcg PO DAILY@0630 [facility] Last Admin: 01/19/18 06:45 Dose: 100 mcg Losartan Potassium (Cozaar) 25 mg PO DAILY [facility] Last Admin: 01/19/18 08:37 Dose: 25 mg Methylprednisolone (Solu-Medrol) 30 mg IVP BID [facility] Metoprolol Tartrate (Lopressor) 25 mg PO DAILY [facility] Last Admin: 01/19/18 08:37 Dose: 25 mg Multivitamins/Minerals (Therapeutic-M Tab) 1 tab PO DAILY [facility] Last Admin: 01/19/18 08:37 Dose: 1 tab Pantoprazole Sodium (Protonix Ec Tab) 20 mg PO DAILY [facility] Last Admin: 01/19/18 08:38 Dose: 20 mg Pravastatin Sodium (Pravachol) 20 mg PO HS [facility] Last Admin: 01/18/18 22:00 Dose: 20 mg - Labs Labs: 01/18/18 04:45 01/18/18 04:45 PT 11.1 Seconds (9.8-13.1) 01/17/18 09:03 INR 1.0 01/17/18 09:03 APTT 28.6 Seconds (25.6-37.1) 01/17/18 09:03 - Respiratory Exam Respiratory Exam: Rhonchi - Cardiovascular Exam Cardiovascular Exam: REGULAR RHYTHM, +S1, +S2 - Extremities Exam Additional comments: MILD LE EDEMA - Additional Findings 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 PATIENT HAD RIGHT VOCAL CORD PARALYSIS FROM INTUBATION DURING OHS(CAUSE OF OCCASIONAL CHOCKING SENSATION) COPD WITH BRONCHITIS AND BRONCHIECTASIS HYPERTENSION HYPERLIPIDEMIA Plan: CONTINUE LOSARTAN, METOPROLOL, ASPIRIN, PRAVACHOL AND COPD MEDS PATIENT WAS STARTED ON ANTIBIOTICS THE PATIENT IS BEING FOLLOWED REGULARLY BY ENT OUT PATIENT FOR HER VOCAL CORD INJURY
[2018-01-19] MEDS: Cefepime 1 GM in Sodium Chloride 0.9% 100 ML IVPB SCH ×2 (11:28→21:04)
[2018-01-19] MEDS: Enoxaparin 40 mg Syringe SC SCH (11:29)
[2018-01-19 13:04] LABS: D.FARINAE (D2) IGE <0.10 kU/L (<0.10); OAK (T7) IGE <0.10 kU/L (<0.10)
[2018-01-19] MEDS ORDERED: methylPREDNISolone 30 MG in Sodium Chloride 0.9% 50 ML IV SCH (17:00)
[2018-01-19] MEDS: Pravastatin Sodium 20 MG TAB PO SCH (21:05)
[2018-01-20] MEDS: guaiFENesin 100 mg/5 ml Syrup UD PO PRN ×2 (03:06→16:05)
[2018-01-20] MEDS: Levothyroxine 100 MCG TAB PO SCH (05:39)
[2018-01-20] MEDS: Albuterol-Ipratrop 3 mg / 0.5 (3 ml) UD INH SCH ×4 (07:43→19:20)
[2018-01-20] MEDS: MethylPREDNISolone 40 mg Vial IVP SCH ×2 (09:13→17:14)
[2018-01-20] MEDS: Pantoprazole 20 mg EC Tab PO SCH (09:14)
[2018-01-20] MEDS: Calcium-Vit D 500 mg-200 Units Tab UD PO SCH (09:14)
[2018-01-20] MEDS: Multivitamin With Minerals Tab PO SCH (09:14)
[2018-01-20] MEDS: Cefepime 1 GM in Sodium Chloride 0.9% 100 ML IVPB SCH ×2 (09:15→21:09)
[2018-01-20] MEDS: Enoxaparin 40 mg Syringe SC SCH (09:16)
--- NOTE | 2018-01-20 10:33 | CP.PCM.PN ---
Subjective - Date & Time of Evaluation Date of Evaluation: 01/20/18 Time of Evaluation: 09:00 - Subjective Subjective: MORE COUGHING AND SOME WHEEZING TODAY NO CHEST PAIN Objective - Vital Signs/Intake and Output Vital Signs (last 24 hours): Temp Pulse Resp BP Pulse Ox 98.4 F 63 20 158/69 H 96 01/20/18 07:41 01/20/18 09:17 01/20/18 07:41 01/20/18 09:17 01/20/18 07:41 - Medications Medications: Current Medications Albuterol Sulfate (Albuterol 0.083% Inhal Molly (2.5 Mg/3 Ml) Ud) 2.5 mg INH RQ4 PRN PRN Reason: Shortness of Breath Albuterol/Ipratropium (Duoneb 3 Mg/0.5 Mg (3 Ml) Ud) 3 ml INH RQID [facility] Last Admin: 01/20/18 07:43 Dose: 3 ml Alendronate Sodium (Fosamax) 70 mg PO QWK [facility] Aspirin (Ecotrin) 81 mg PO DAILY [facility] Last Admin: 01/20/18 09:17 Dose: 81 mg Benzonatate (Tessalon Perles) 100 mg PO Q8 PRN PRN Reason: Cough Last Admin: 01/19/18 06:46 Dose: 100 mg Calcium/Vitamin D (Oyster Shell Calcium/Vitamin D 500 Mg-200 Iu) 1 tab PO DAILY [facility] Last Admin: 01/20/18 09:14 Dose: 1 tab Enoxaparin Sodium (Lovenox) 40 mg SC DAILY [facility]; Protocol Last Admin: 01/20/18 09:16 Dose: 40 mg Gabapentin (Neurontin) 300 mg PO Q12 [facility] Last Admin: 01/20/18 09:14 Dose: 300 mg Guaifenesin (Robitussin) 100 mg PO Q6 PRN PRN Reason: Cough Last Admin: 01/20/18 03:06 Dose: 100 mg Cefepime HCl 1 gm/ Sodium (Chloride) 100 mls @ 100 mls/hr IVPB Q12 [facility]; Protocol Last Admin: 01/20/18 09:15 Dose: 100 mls/hr Levothyroxine Sodium (Synthroid) 100 mcg PO DAILY@0630 [facility] Last Admin: 01/20/18 05:39 Dose: 100 mcg Losartan Potassium (Cozaar) 25 mg PO DAILY [facility] Last Admin: 01/20/18 09:17 Dose: 25 mg Methylprednisolone (Solu-Medrol) 30 mg IVP BID [facility] Last Admin: 01/20/18 09:13 Dose: 30 mg Metoprolol Tartrate (Lopressor) 25 mg PO DAILY [facility] Last Admin: 01/20/18 09:16 Dose: 25 mg Multivitamins/Minerals (Therapeutic-M Tab) 1 tab PO DAILY [facility] Last Admin: 01/20/18 09:14 Dose: 1 tab Pantoprazole Sodium (Protonix Ec Tab) 20 mg PO DAILY [facility] Last Admin: 01/20/18 09:14 Dose: 20 mg Pravastatin Sodium (Pravachol) 20 mg PO HS [facility] Last Admin: 01/19/18 21:05 Dose: 20 mg - Labs Labs: 01/18/18 04:45 01/18/18 04:45 PT 11.1 Seconds (9.8-13.1) 01/17/18 09:03 INR 1.0 01/17/18 09:03 APTT 28.6 Seconds (25.6-37.1) 01/17/18 09:03 - Respiratory Exam Respiratory Exam: Rhonchi, Wheezes - Cardiovascular Exam Cardiovascular Exam: REGULAR RHYTHM, +S1, +S2 - Extremities Exam Additional comments: MILD LE EDEMA Assessment and Plan - Assessment and Plan (Free Text) Assessment: COPD WITH BRONCHITIS AND BRONCHIECTASIS S/P AVR FOR HYPERTENSION HYPERLIPIDEMIA Plan: CONTINUE LOSARTAN, METOPROLOL, PRAVASTATIN, ASPIRIN, LOVENOX, COPD MEDS INCLUDING STEROIDS AND ANTIBIOTICS
--- NOTE | 2018-01-20 12:27 | CP.PCM.PN ---
Subjective - Date & Time of Evaluation Date of Evaluation: 01/20/18 Time of Evaluation: 12:25 - Subjective Subjective: Continues to have a congested cough, but less frequent. States she had a 'bad night' because of the coughing. Still has only occasional, minimal sputum expectorated. Vital signs are stable. She remains afebrile. Cefepime was started yesterday at 1GM Q12H. Speech therapy note reviewed. Patient received instructions for safe swallowing. A video swallow was done about two years ago and will not be repeated now unless this does not improve. CT chest was requested today w/o contrast to be sure there is no other pathology in the upper lobes. On exam there seems to be an overall reduction in the rhonchi, although they are still present bilaterally. No distinct wheezes or bronchial breath sounds are heard. Heart sounds are well heard. Abdomen is soft and non-tender. Trace dependant edema of the left leg distally. No cyanosis. Increase tessalon dosage and give it on a scheduled basis. Await CT chest to insure that there is no unseen problem on the upper chest. Will keep solumedrol at 30 Q12H for another day. Repeat labs in the morning. Objective - Vital Signs/Intake and Output Vital Signs (last 24 hours): Temp Pulse Resp BP Pulse Ox 97.5 F L 64 20 137/74 96 01/20/18 11:51 01/20/18 11:51 01/20/18 11:51 01/20/18 11:51 01/20/18 11:51 - Medications Medications: Current Medications Albuterol Sulfate (Albuterol 0.083% Inhal Molly (2.5 Mg/3 Ml) Ud) 2.5 mg INH RQ4 PRN PRN Reason: Shortness of Breath Albuterol/Ipratropium (Duoneb 3 Mg/0.5 Mg (3 Ml) Ud) 3 ml INH RQID [facility] Last Admin: 01/20/18 11:05 Dose: 3 ml Alendronate Sodium (Fosamax) 70 mg PO QWK [facility] Aspirin (Ecotrin) 81 mg PO DAILY [facility] Last Admin: 01/20/18 09:17 Dose: 81 mg Benzonatate (Tessalon Perles) 200 mg PO Q8 [facility] Calcium/Vitamin D (Oyster Shell Calcium/Vitamin D 500 Mg-200 Iu) 1 tab PO DAILY [facility] Last Admin: 01/20/18 09:14 Dose: 1 tab Enoxaparin Sodium (Lovenox) 40 mg SC DAILY [facility]; Protocol Last Admin: 01/20/18 09:16 Dose: 40 mg Gabapentin (Neurontin) 300 mg PO Q12 [facility] Last Admin: 01/20/18 09:14 Dose: 300 mg Guaifenesin (Robitussin) 100 mg PO Q6 PRN PRN Reason: Cough Last Admin: 01/20/18 03:06 Dose: 100 mg Cefepime HCl 1 gm/ Sodium (Chloride) 100 mls @ 100 mls/hr IVPB Q12 [facility]; Protocol Last Admin: 01/20/18 09:15 Dose: 100 mls/hr Levothyroxine Sodium (Synthroid) 100 mcg PO DAILY@0630 [facility] Last Admin: 01/20/18 05:39 Dose: 100 mcg Losartan Potassium (Cozaar) 25 mg PO DAILY [facility] Last Admin: 01/20/18 09:17 Dose: 25 mg Methylprednisolone (Solu-Medrol) 30 mg IVP BID [facility] Last Admin: 01/20/18 09:13 Dose: 30 mg Metoprolol Tartrate (Lopressor) 25 mg PO DAILY [facility] Last Admin: 01/20/18 09:16 Dose: 25 mg Multivitamins/Minerals (Therapeutic-M Tab) 1 tab PO DAILY [facility] Last Admin: 01/20/18 09:14 Dose: 1 tab Pantoprazole Sodium (Protonix Ec Tab) 20 mg PO DAILY [facility] Last Admin: 01/20/18 09:14 Dose: 20 mg Pravastatin Sodium (Pravachol) 20 mg PO HS [facility] Last Admin: 01/19/18 21:05 Dose: 20 mg - Labs Labs: 01/18/18 04:45 01/18/18 04:45 PT 11.1 Seconds (9.8-13.1) 01/17/18 09:03 INR 1.0 01/17/18 09:03 APTT 28.6 Seconds (25.6-37.1) 01/17/18 09:03 Assessment and Plan (1) Respiratory distress, acute Status: Resolved (2) Acute bronchitis Assessment & Plan: Acute on chronic. Status: Acute (3) COPD with acute exacerbation Status: Acute (4) Vocal cord paralysis Assessment & Plan: Right. Status: Chronic
--- NOTE | 2018-01-20 14:39 | CT ---
Date of service: 01/20/2018 PROCEDURE: CT Chest without contrast HISTORY: persistent cough COMPARISON: Chest CT without contrast 04/07/2017. abdomen and pelvis CT 04/10/2017. TECHNIQUE: Contiguous axial images were obtained through the chest without intravenous contrast enhancement. Sagittal and coronal reconstructions were performed. Radiation dose: Total exam DLP = 358.4 mGy-cm. This CT exam was performed using one or more of the following dose reduction techniques: Automated exposure control, adjustment of the mA and/or kV according to patient size, and/or use of iterative reconstruction technique. FINDINGS: LUNGS: Limited atelectasis or even fibrosis seen at the bilateral lung bases with mild right lower lobe bronchiectasis appreciated distally. No definitive infiltrate identified bilaterally. Demonstrated mass including central airways. MEDIASTINUM: Dilated ascending thoracic aorta up to 4.0 cm terminating at the anterior arch which measures 3.2 cm. Mild cardiomegaly is noted with dense mitral and [id number] aortic iliac calcifications noted. Main pulmonary artery unremarkable. No vascular congestion. Shotty mediastinal lymph nodes are occasionally encountered. Moderate atherosclerotic calcifications seen at the thoracic aorta. PLEURA: No pleural fluid. No pneumothorax. BONES: Chronic severe anterior wedge compression fracture T12 reiterated. UPPER ABDOMEN: Necrotic-appearing mass identified upper midpole left kidney slightly increased in size measuring 5.4 x 3 point 6 cm compared to 5.1 x 3.7 cm previously. Punctate intrarenal calculi versus vascular calcification noted within the right kidney. No obstructive uropathy bilaterally. OTHER FINDINGS: None. IMPRESSION: 1. Mild right lower lobe bronchiectasis inferiorly. Limited bilateral lower lobe fibrosis. 2. No acute infiltrates bilaterally, pleural effusion or pneumothorax. No significant lymphadenopathy. 3. Dilated ascending thoracic aorta 4.0 cm terminating at anterior arch. 4. Stable mild cardiomegaly. 5. Incidental left renal mass reiterated though slightly larger currently. tami
[2018-01-20] MEDS: Pravastatin Sodium 20 MG TAB PO SCH (21:37)
[2018-01-21] MEDS: guaiFENesin 100 mg/5 ml Syrup UD PO PRN ×2 (04:24→21:03)
[2018-01-21] MEDS: Levothyroxine 100 MCG TAB PO SCH (06:15)
[2018-01-21] MEDS: Albuterol-Ipratrop 3 mg / 0.5 (3 ml) UD INH SCH ×4 (07:09→19:11)
[2018-01-21 07:36] LABS: BLOOD UREA NITROGEN 29 mg/dl (7-17); CALCIUM 8.2 mg/dL (8.4-10.2); GFR NON-AFRICAN AMERICAN > 60
[2018-01-21 08:15] LABS: HEMOGLOBIN 13.6 g/dL (12.0-16.0); MEAN CELL VOLUME 93.7 fl (81.0-99.0); MEAN CORPUSCULAR HEMOGLOBIN 31.4 pg (27.0-31.0); MEAN CORPUSCULAR HGB CONC 33.6 g/dL (33.0-37.0); RBC 4.32 Mil/uL (3.80-5.20); RED CELL DISTRIBUTION WIDTH 13.3 % (11.5-14.5); WHITE BLOOD COUNT 8.3 K/uL (4.8-10.8)
[2018-01-21] MEDS: Enoxaparin 40 mg Syringe SC SCH (08:42)
[2018-01-21] MEDS: Cefepime 1 GM in Sodium Chloride 0.9% 100 ML IVPB SCH ×2 (08:43→21:02)
[2018-01-21] MEDS: Multivitamin With Minerals Tab PO SCH (08:44)
[2018-01-21] MEDS: Pantoprazole 20 mg EC Tab PO SCH (08:44)
[2018-01-21] MEDS: Calcium-Vit D 500 mg-200 Units Tab UD PO SCH (08:44)
[2018-01-21] MEDS: MethylPREDNISolone 40 mg Vial IVP SCH ×2 (08:47→16:20)
--- NOTE | 2018-01-21 14:09 | CP.PCM.PN ---
Subjective - Date & Time of Evaluation Date of Evaluation: 01/21/18 Time of Evaluation: 13:30 - Subjective Subjective: STILL WITH COUGHING ESPECIALLY AT NIGHT BREATHING A LITTLE BETTER NO CHEST PAIN Objective - Vital Signs/Intake and Output Vital Signs (last 24 hours): Temp Pulse Resp BP Pulse Ox 97.3 F L 56 L 18 143/72 100 01/21/18 12:39 01/21/18 12:39 01/21/18 12:39 01/21/18 12:39 01/21/18 12:39 - Medications Medications: Current Medications Albuterol Sulfate (Albuterol 0.083% Inhal Molly (2.5 Mg/3 Ml) Ud) 2.5 mg INH RQ4 PRN PRN Reason: Shortness of Breath Albuterol/Ipratropium (Duoneb 3 Mg/0.5 Mg (3 Ml) Ud) 3 ml INH RQID [facility] Last Admin: 01/21/18 11:48 Dose: 3 ml Alendronate Sodium (Fosamax) 70 mg PO QWK [facility] Aspirin (Ecotrin) 81 mg PO DAILY [facility] Last Admin: 01/21/18 08:42 Dose: 81 mg Benzonatate (Tessalon Perles) 200 mg PO Q8 [facility] Last Admin: 01/21/18 08:47 Dose: 200 mg Calcium/Vitamin D (Oyster Shell Calcium/Vitamin D 500 Mg-200 Iu) 1 tab PO DAILY [facility] Last Admin: 01/21/18 08:44 Dose: 1 tab Enoxaparin Sodium (Lovenox) 40 mg SC DAILY [facility]; Protocol Last Admin: 01/21/18 08:42 Dose: 40 mg Gabapentin (Neurontin) 300 mg PO Q12 [facility] Last Admin: 01/21/18 08:43 Dose: 300 mg Guaifenesin (Robitussin) 100 mg PO Q6 PRN PRN Reason: Cough Last Admin: 01/21/18 04:24 Dose: 100 mg Cefepime HCl 1 gm/ Sodium (Chloride) 100 mls @ 100 mls/hr IVPB Q12 [facility]; Protocol Last Admin: 01/21/18 08:43 Dose: 100 mls/hr Levothyroxine Sodium (Synthroid) 100 mcg PO DAILY@0630 [facility] Last Admin: 01/21/18 06:15 Dose: 100 mcg Losartan Potassium (Cozaar) 25 mg PO DAILY [facility] Last Admin: 01/21/18 08:41 Dose: 25 mg Methylprednisolone (Solu-Medrol) 30 mg IVP BID [facility] Stop: 01/21/18 23:59 Last Admin: 01/21/18 08:47 Dose: 30 mg Methylprednisolone (Solu-Medrol) 40 mg IVP DAILY [facility] Metoprolol Tartrate (Lopressor) 25 mg PO DAILY [facility] Last Admin: 01/21/18 08:42 Dose: 25 mg Multivitamins/Minerals (Therapeutic-M Tab) 1 tab PO DAILY [facility] Last Admin: 01/21/18 08:44 Dose: 1 tab Pantoprazole Sodium (Protonix Ec Tab) 20 mg PO DAILY [facility] Last Admin: 01/21/18 08:44 Dose: 20 mg Pravastatin Sodium (Pravachol) 20 mg PO HS [facility] Last Admin: 01/20/18 21:37 Dose: 20 mg - Labs Labs: 01/21/18 06:00 01/21/18 06:00 PT 11.1 Seconds (9.8-13.1) 01/17/18 09:03 INR 1.0 01/17/18 09:03 APTT 28.6 Seconds (25.6-37.1) 01/17/18 09:03 - Respiratory Exam Respiratory Exam: Rhonchi - Cardiovascular Exam Cardiovascular Exam: REGULAR RHYTHM, +S1, +S2 - Extremities Exam Additional comments: TRACE LE EDEMA(PATIENT SITTING ON SIDE OF BED) - Additional Findings 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
[2018-01-21] MEDS: Pravastatin Sodium 20 MG TAB PO SCH (21:02)
[2018-01-22] MEDS: Levothyroxine 100 MCG TAB PO SCH (05:41)
[2018-01-22] MEDS: guaiFENesin 100 mg/5 ml Syrup UD PO PRN ×2 (05:42→21:12)
[2018-01-22] MEDS: Albuterol-Ipratrop 3 mg / 0.5 (3 ml) UD INH SCH ×4 (07:38→19:26)
[2018-01-22] MEDS ORDERED: methylPREDNISolone 40 MG in Sodium Chloride 0.9% 50 ML IV SCH (09:00)
[2018-01-22] MEDS: Multivitamin With Minerals Tab PO SCH (09:35)
[2018-01-22] MEDS: Calcium-Vit D 500 mg-200 Units Tab UD PO SCH (09:35)
[2018-01-22] MEDS: MethylPREDNISolone 40 mg Vial IVP SCH (09:36)
[2018-01-22] MEDS: Pantoprazole 20 mg EC Tab PO SCH (09:36)
[2018-01-22] MEDS: Enoxaparin 40 mg Syringe SC SCH (09:38)
[2018-01-22] MEDS: Cefepime 1 GM in Sodium Chloride 0.9% 100 ML IVPB SCH ×2 (09:38→21:12)
--- NOTE | 2018-01-22 12:41 | CP.PCM.PN ---
Subjective - Date & Time of Evaluation Date of Evaluation: 01/22/18 Time of Evaluation: 11:30 - Subjective Subjective: HAD COUGH AGAIN LAST NIGHT BUT IS BREATHING BETTER TODAY Objective - Vital Signs/Intake and Output Vital Signs (last 24 hours): Temp Pulse Resp BP Pulse Ox 98.0 F 54 L 20 144/81 97 01/22/18 12:28 01/22/18 12:28 01/22/18 12:28 01/22/18 12:28 01/22/18 12:28 - Medications Medications: Current Medications Albuterol Sulfate (Albuterol 0.083% Inhal Molly (2.5 Mg/3 Ml) Ud) 2.5 mg INH RQ4 PRN PRN Reason: Shortness of Breath Albuterol/Ipratropium (Duoneb 3 Mg/0.5 Mg (3 Ml) Ud) 3 ml INH RQID [facility] Last Admin: 01/22/18 11:33 Dose: 3 ml Alendronate Sodium (Fosamax) 70 mg PO QWK [facility] Aspirin (Ecotrin) 81 mg PO DAILY [facility] Last Admin: 01/22/18 09:35 Dose: 81 mg Benzonatate (Tessalon Perles) 200 mg PO Q8 [facility] Last Admin: 01/22/18 09:45 Dose: 200 mg Calcium/Vitamin D (Oyster Shell Calcium/Vitamin D 500 Mg-200 Iu) 1 tab PO DAILY [facility] Last Admin: 01/22/18 09:35 Dose: 1 tab Gabapentin (Neurontin) 300 mg PO Q12 [facility] Last Admin: 01/22/18 09:35 Dose: 300 mg Guaifenesin (Robitussin) 100 mg PO Q6 PRN PRN Reason: Cough Last Admin: 01/22/18 05:42 Dose: 100 mg Cefepime HCl 1 gm/ Sodium (Chloride) 100 mls @ 100 mls/hr IVPB Q12 [facility]; Protocol Last Admin: 01/22/18 09:38 Dose: 100 mls/hr Levothyroxine Sodium (Synthroid) 100 mcg PO DAILY@0630 [facility] Last Admin: 01/22/18 05:41 Dose: 100 mcg Losartan Potassium (Cozaar) 25 mg PO DAILY [facility] Last Admin: 01/22/18 09:42 Dose: 25 mg Methylprednisolone (Solu-Medrol) 40 mg IVP DAILY [facility] Last Admin: 01/22/18 09:36 Dose: 40 mg Metoprolol Tartrate (Lopressor) 25 mg PO DAILY [facility] Last Admin: 01/22/18 09:41 Dose: 25 mg Multivitamins/Minerals (Therapeutic-M Tab) 1 tab PO DAILY [facility] Last Admin: 01/22/18 09:35 Dose: 1 tab Pantoprazole Sodium (Protonix Ec Tab) 20 mg PO DAILY [facility] Last Admin: 01/22/18 09:36 Dose: 20 mg Pravastatin Sodium (Pravachol) 20 mg PO HS [facility] Last Admin: 01/21/18 21:02 Dose: 20 mg - Labs Labs: 01/21/18 06:00 01/21/18 06:00 PT 11.1 Seconds (9.8-13.1) 01/17/18 09:03 INR 1.0 01/17/18 09:03 APTT 28.6 Seconds (25.6-37.1) 01/17/18 09:03 - Respiratory Exam Respiratory Exam: Rhonchi - Cardiovascular Exam Cardiovascular Exam: REGULAR RHYTHM, +S1, +S2 - Extremities Exam Additional comments: [facility]ACE [facility]DE[facility] Assessment and Plan - Assessment and Plan (Free Text) Assessment: COPD WITH BRONCHITIS AND BRONCHIECTASIS S/P AVR HYPERTENSION HYPERLIPIDEMIA Plan: CONTINUE LOSARTAN, METOPROLOL, PRAVASTATIN, ANTIBIOTICS AND COPD MEDS
[2018-01-22] MEDS: Pravastatin Sodium 20 MG TAB PO SCH (21:12)
--- NOTE | 2018-01-22 22:45 | CP.PCM.PN ---
Subjective - Date & Time of Evaluation Date of Evaluation: 01/19/18 Time of Evaluation: 11:00 - Subjective Subjective: patient seen and examined at bedside. interim events noted continues with cough pulmonary/cardiology following Objective - Vital Signs/Intake and Output Vital Signs (last 24 hours): Temp Pulse Resp BP Pulse Ox 98.1 F 53 L 22 125/77 98 01/22/18 19:56 01/22/18 19:56 01/22/18 19:56 01/22/18 19:56 01/22/18 19:56 - Medications Medications: Current Medications Albuterol Sulfate (Albuterol 0.083% Inhal Molly (2.5 Mg/3 Ml) Ud) 2.5 mg INH RQ4 PRN PRN Reason: Shortness of Breath Albuterol/Ipratropium (Duoneb 3 Mg/0.5 Mg (3 Ml) Ud) 3 ml INH RQID [facility] Last Admin: 01/22/18 19:26 Dose: 3 ml Alendronate Sodium (Fosamax) 70 mg PO QWK [facility] Aspirin (Ecotrin) 81 mg PO DAILY [facility] Last Admin: 01/22/18 09:35 Dose: 81 mg Benzonatate (Tessalon Perles) 200 mg PO Q8 [facility] Last Admin: 01/22/18 17:21 Dose: 200 mg Calcium/Vitamin D (Oyster Shell Calcium/Vitamin D 500 Mg-200 Iu) 1 tab PO DAILY [facility] Last Admin: 01/22/18 09:35 Dose: 1 tab Gabapentin (Neurontin) 300 mg PO Q12 [facility] Last Admin: 01/22/18 21:12 Dose: 300 mg Guaifenesin (Robitussin) 100 mg PO Q6 PRN PRN Reason: Cough Last Admin: 01/22/18 21:12 Dose: 100 mg Cefepime HCl 1 gm/ Sodium (Chloride) 100 mls @ 100 mls/hr IVPB Q12 [facility]; Protocol Last Admin: 01/22/18 21:12 Dose: 100 mls/hr Levothyroxine Sodium (Synthroid) 100 mcg PO DAILY@0630 [facility] Last Admin: 01/22/18 05:41 Dose: 100 mcg Losartan Potassium (Cozaar) 25 mg PO DAILY [facility] Last Admin: 01/22/18 09:42 Dose: 25 mg Methylprednisolone (Solu-Medrol) 40 mg IVP DAILY [facility] Last Admin: 01/22/18 09:36 Dose: 40 mg Metoprolol Tartrate (Lopressor) 25 mg PO DAILY [facility] Last Admin: 01/22/18 09:41 Dose: 25 mg Multivitamins/Minerals (Therapeutic-M Tab) 1 tab PO DAILY [facility] Last Admin: 01/22/18 09:35 Dose: 1 tab Pantoprazole Sodium (Protonix Ec Tab) 20 mg PO DAILY [facility] Last Admin: 01/22/18 09:36 Dose: 20 mg Pravastatin Sodium (Pravachol) 20 mg PO HS [facility] Last Admin: 01/22/18 21:12 Dose: 20 mg - Labs Labs: 01/21/18 06:00 01/21/18 06:00 PT 11.1 Seconds (9.8-13.1) 01/17/18 09:03 INR 1.0 01/17/18 09:03 APTT 28.6 Seconds (25.6-37.1) 01/17/18 09:03 - Additional Findings Additional findings: - Constitutional Appears: Non-toxic - Head Exam Head Exam: NORMAL INSPECTION - Eye Exam Eye Exam: Normal appearance - Neck Exam Neck Exam: Normal Inspection - Respiratory Exam Respiratory Exam: NORMAL BREATHING PATTERN, Wheezes, Rhonchi Bilaterally - Cardiovascular Exam Cardiovascular Exam: +S1, +S2 - GI/Abdominal Exam GI & Abdominal Exam: Soft - Neurological Exam Neurological Exam: Alert, Awake - Psychiatric Exam Psychiatric exam: Normal Affect, Normal Mood - Skin Skin Exam: Normal Color, Warm Assessment and Plan - Assessment and Plan (Free Text) Assessment: 87 yo female admitted for evaluation and management of worsening dyspnea and cough, COPD exacerbation. Plan: monitor vitals monitor labs cardio consulted Pulmonology consulted appreciate recommendations meds as prescribed rest of plan as ordered
--- NOTE | 2018-01-22 22:47 | CP.PCM.PN ---
Subjective - Date & Time of Evaluation Date of Evaluation: 01/20/18 Time of Evaluation: 11:00 - Subjective Subjective: patient seen and examined at bedside. interim events noted continues with cough, slight improvement pulmonary/cardiology following Objective - Vital Signs/Intake and Output Vital Signs (last 24 hours): Temp Pulse Resp BP Pulse Ox 98.1 F 53 L 22 125/77 98 01/22/18 19:56 01/22/18 19:56 01/22/18 19:56 01/22/18 19:56 01/22/18 19:56 - Medications Medications: Current Medications Albuterol Sulfate (Albuterol 0.083% Inhal Molly (2.5 Mg/3 Ml) Ud) 2.5 mg INH RQ4 PRN PRN Reason: Shortness of Breath Albuterol/Ipratropium (Duoneb 3 Mg/0.5 Mg (3 Ml) Ud) 3 ml INH RQID [facility] Last Admin: 01/22/18 19:26 Dose: 3 ml Alendronate Sodium (Fosamax) 70 mg PO QWK [facility] Aspirin (Ecotrin) 81 mg PO DAILY [facility] Last Admin: 01/22/18 09:35 Dose: 81 mg Benzonatate (Tessalon Perles) 200 mg PO Q8 [facility] Last Admin: 01/22/18 17:21 Dose: 200 mg Calcium/Vitamin D (Oyster Shell Calcium/Vitamin D 500 Mg-200 Iu) 1 tab PO DAILY [facility] Last Admin: 01/22/18 09:35 Dose: 1 tab Gabapentin (Neurontin) 300 mg PO Q12 [facility] Last Admin: 01/22/18 21:12 Dose: 300 mg Guaifenesin (Robitussin) 100 mg PO Q6 PRN PRN Reason: Cough Last Admin: 01/22/18 21:12 Dose: 100 mg Cefepime HCl 1 gm/ Sodium (Chloride) 100 mls @ 100 mls/hr IVPB Q12 [facility]; Protocol Last Admin: 01/22/18 21:12 Dose: 100 mls/hr Levothyroxine Sodium (Synthroid) 100 mcg PO DAILY@0630 [facility] Last Admin: 01/22/18 05:41 Dose: 100 mcg Losartan Potassium (Cozaar) 25 mg PO DAILY [facility] Last Admin: 01/22/18 09:42 Dose: 25 mg Methylprednisolone (Solu-Medrol) 40 mg IVP DAILY [facility] Last Admin: 01/22/18 09:36 Dose: 40 mg Metoprolol Tartrate (Lopressor) 25 mg PO DAILY [facility] Last Admin: 01/22/18 09:41 Dose: 25 mg Multivitamins/Minerals (Therapeutic-M Tab) 1 tab PO DAILY [facility] Last Admin: 01/22/18 09:35 Dose: 1 tab Pantoprazole Sodium (Protonix Ec Tab) 20 mg PO DAILY [facility] Last Admin: 01/22/18 09:36 Dose: 20 mg Pravastatin Sodium (Pravachol) 20 mg PO HS [facility] Last Admin: 01/22/18 21:12 Dose: 20 mg - Labs Labs: 01/21/18 06:00 01/21/18 06:00 PT 11.1 Seconds (9.8-13.1) 01/17/18 09:03 INR 1.0 01/17/18 09:03 APTT 28.6 Seconds (25.6-37.1) 01/17/18 09:03 - Additional Findings Additional findings: - Constitutional Appears: Non-toxic - Head Exam Head Exam: NORMAL INSPECTION - Eye Exam Eye Exam: Normal appearance - Neck Exam Neck Exam: Normal Inspection - Respiratory Exam Respiratory Exam: NORMAL BREATHING PATTERN, Wheezes, Rhonchi Bilaterally - Cardiovascular Exam Cardiovascular Exam: +S1, +S2 - GI/Abdominal Exam GI & Abdominal Exam: Soft - Neurological Exam Neurological Exam: Alert, Awake - Psychiatric Exam Psychiatric exam: Normal Affect, Normal Mood - Skin Skin Exam: Normal Color, Warm Assessment and Plan - Assessment and Plan (Free Text) Assessment: 87 yo female admitted for evaluation and management of worsening dyspnea and cough, COPD exacerbation. Plan: monitor vitals monitor labs cardio consulted Pulmonology consulted appreciate recommendations meds as prescribed obtain CT scan rest of plan as ordered
--- NOTE | 2018-01-22 22:48 | CP.PCM.PN ---
Subjective - Date & Time of Evaluation Date of Evaluation: 01/21/18 Time of Evaluation: 11:00 - Subjective Subjective: patient seen and examined at bedside. interim events noted continues with cough though improving pulmonary/cardiology following Objective - Vital Signs/Intake and Output Vital Signs (last 24 hours): Temp Pulse Resp BP Pulse Ox 98.1 F 53 L 22 125/77 98 01/22/18 19:56 01/22/18 19:56 01/22/18 19:56 01/22/18 19:56 01/22/18 19:56 - Medications Medications: Current Medications Albuterol Sulfate (Albuterol 0.083% Inhal Molly (2.5 Mg/3 Ml) Ud) 2.5 mg INH RQ4 PRN PRN Reason: Shortness of Breath Albuterol/Ipratropium (Duoneb 3 Mg/0.5 Mg (3 Ml) Ud) 3 ml INH RQID [facility] Last Admin: 01/22/18 19:26 Dose: 3 ml Alendronate Sodium (Fosamax) 70 mg PO QWK [facility] Aspirin (Ecotrin) 81 mg PO DAILY [facility] Last Admin: 01/22/18 09:35 Dose: 81 mg Benzonatate (Tessalon Perles) 200 mg PO Q8 [facility] Last Admin: 01/22/18 17:21 Dose: 200 mg Calcium/Vitamin D (Oyster Shell Calcium/Vitamin D 500 Mg-200 Iu) 1 tab PO DAILY [facility] Last Admin: 01/22/18 09:35 Dose: 1 tab Gabapentin (Neurontin) 300 mg PO Q12 [facility] Last Admin: 01/22/18 21:12 Dose: 300 mg Guaifenesin (Robitussin) 100 mg PO Q6 PRN PRN Reason: Cough Last Admin: 01/22/18 21:12 Dose: 100 mg Cefepime HCl 1 gm/ Sodium (Chloride) 100 mls @ 100 mls/hr IVPB Q12 [facility]; Protocol Last Admin: 01/22/18 21:12 Dose: 100 mls/hr Levothyroxine Sodium (Synthroid) 100 mcg PO DAILY@0630 [facility] Last Admin: 01/22/18 05:41 Dose: 100 mcg Losartan Potassium (Cozaar) 25 mg PO DAILY [facility] Last Admin: 01/22/18 09:42 Dose: 25 mg Methylprednisolone (Solu-Medrol) 40 mg IVP DAILY [facility] Last Admin: 01/22/18 09:36 Dose: 40 mg Metoprolol Tartrate (Lopressor) 25 mg PO DAILY [facility] Last Admin: 01/22/18 09:41 Dose: 25 mg Multivitamins/Minerals (Therapeutic-M Tab) 1 tab PO DAILY [facility] Last Admin: 01/22/18 09:35 Dose: 1 tab Pantoprazole Sodium (Protonix Ec Tab) 20 mg PO DAILY [facility] Last Admin: 01/22/18 09:36 Dose: 20 mg Pravastatin Sodium (Pravachol) 20 mg PO HS [facility] Last Admin: 01/22/18 21:12 Dose: 20 mg - Labs Labs: 01/21/18 06:00 01/21/18 06:00 PT 11.1 Seconds (9.8-13.1) 01/17/18 09:03 INR 1.0 01/17/18 09:03 APTT 28.6 Seconds (25.6-37.1) 01/17/18 09:03 - Additional Findings Additional findings: - Constitutional Appears: Non-toxic - Head Exam Head Exam: NORMAL INSPECTION - Eye Exam Eye Exam: Normal appearance - Neck Exam Neck Exam: Normal Inspection - Respiratory Exam Respiratory Exam: NORMAL BREATHING PATTERN, Wheezes, Rhonchi Bilaterally - Cardiovascular Exam Cardiovascular Exam: +S1, +S2 - GI/Abdominal Exam GI & Abdominal Exam: Soft - Neurological Exam Neurological Exam: Alert, Awake - Psychiatric Exam Psychiatric exam: Normal Affect, Normal Mood - Skin Skin Exam: Normal Color, Warm Assessment and Plan - Assessment and Plan (Free Text) Assessment: 87 yo female admitted for evaluation and management of worsening dyspnea and cough, COPD exacerbation. Plan: monitor vitals monitor labs cardio consulted Pulmonology consulted appreciate recommendations meds as prescribed CT scan reviewed, urology consulted due to necrotic renal mass rest of plan as ordered
--- NOTE | 2018-01-22 22:50 | CP.PCM.PN ---
Subjective - Date & Time of Evaluation Date of Evaluation: 01/22/18 Time of Evaluation: 11:00 - Subjective Subjective: patient seen and examined at bedside. interim events noted continues with cough though improving pulmonary/cardiology following Objective - Vital Signs/Intake and Output Vital Signs (last 24 hours): Temp Pulse Resp BP Pulse Ox 98.1 F 53 L 22 125/77 98 01/22/18 19:56 01/22/18 19:56 01/22/18 19:56 01/22/18 19:56 01/22/18 19:56 - Medications Medications: Current Medications Albuterol Sulfate (Albuterol 0.083% Inhal Molly (2.5 Mg/3 Ml) Ud) 2.5 mg INH RQ4 PRN PRN Reason: Shortness of Breath Albuterol/Ipratropium (Duoneb 3 Mg/0.5 Mg (3 Ml) Ud) 3 ml INH RQID [facility] Last Admin: 01/22/18 19:26 Dose: 3 ml Alendronate Sodium (Fosamax) 70 mg PO QWK [facility] Aspirin (Ecotrin) 81 mg PO DAILY [facility] Last Admin: 01/22/18 09:35 Dose: 81 mg Benzonatate (Tessalon Perles) 200 mg PO Q8 [facility] Last Admin: 01/22/18 17:21 Dose: 200 mg Calcium/Vitamin D (Oyster Shell Calcium/Vitamin D 500 Mg-200 Iu) 1 tab PO DAILY [facility] Last Admin: 01/22/18 09:35 Dose: 1 tab Gabapentin (Neurontin) 300 mg PO Q12 [facility] Last Admin: 01/22/18 21:12 Dose: 300 mg Guaifenesin (Robitussin) 100 mg PO Q6 PRN PRN Reason: Cough Last Admin: 01/22/18 21:12 Dose: 100 mg Cefepime HCl 1 gm/ Sodium (Chloride) 100 mls @ 100 mls/hr IVPB Q12 [facility]; Protocol Last Admin: 01/22/18 21:12 Dose: 100 mls/hr Levothyroxine Sodium (Synthroid) 100 mcg PO DAILY@0630 [facility] Last Admin: 01/22/18 05:41 Dose: 100 mcg Losartan Potassium (Cozaar) 25 mg PO DAILY [facility] Last Admin: 01/22/18 09:42 Dose: 25 mg Methylprednisolone (Solu-Medrol) 40 mg IVP DAILY [facility] Last Admin: 01/22/18 09:36 Dose: 40 mg Metoprolol Tartrate (Lopressor) 25 mg PO DAILY [facility] Last Admin: 01/22/18 09:41 Dose: 25 mg Multivitamins/Minerals (Therapeutic-M Tab) 1 tab PO DAILY [facility] Last Admin: 01/22/18 09:35 Dose: 1 tab Pantoprazole Sodium (Protonix Ec Tab) 20 mg PO DAILY [facility] Last Admin: 01/22/18 09:36 Dose: 20 mg Pravastatin Sodium (Pravachol) 20 mg PO HS [facility] Last Admin: 01/22/18 21:12 Dose: 20 mg - Labs Labs: 01/21/18 06:00 01/21/18 06:00 PT 11.1 Seconds (9.8-13.1) 01/17/18 09:03 INR 1.0 01/17/18 09:03 APTT 28.6 Seconds (25.6-37.1) 01/17/18 09:03 - Additional Findings Additional findings: - Constitutional Appears: Non-toxic - Head Exam Head Exam: NORMAL INSPECTION - Eye Exam Eye Exam: Normal appearance - Neck Exam Neck Exam: Normal Inspection - Respiratory Exam Respiratory Exam: NORMAL BREATHING PATTERN, Rhonchi - Cardiovascular Exam Cardiovascular Exam: +S1, +S2 - GI/Abdominal Exam GI & Abdominal Exam: Soft - Neurological Exam Neurological Exam: Alert, Awake - Psychiatric Exam Psychiatric exam: Normal Affect, Normal Mood - Skin Skin Exam: Normal Color, Warm Assessment and Plan - Assessment and Plan (Free Text) Assessment: 87 yo female admitted for evaluation and management of worsening dyspnea and cough, COPD exacerbation. Plan: monitor vitals monitor labs cardio consulted Pulmonology consulted appreciate recommendations meds as prescribed CT scan reviewed, urology consulted due to necrotic renal mass, pending recommendations rest of plan as ordered
--- NOTE | 2018-01-22 23:18 | CON ---
DATE: 01/22/2018 REASON FOR CONSULT: Left renal necrotic mass. BRIEF HISTORY: The patient is an 87-year-old [place] female with a 3-year history of a left renal mass, who presents to [facility] with a history of chronic cough, shortness of breath, and found to have some CHF and COPD, requiring admission. The patient also has a history of a left renal mass, which has been observed at this time for 3 years, currently followed by a urologic robotic surgeon at [facility], which she thinks may be Dr. Torres Baxter. The patient was told that this mass could be observed at this time due to her age of 87. The patient had a chest CT on 01/20/2018, which besides her pulmonary pathology also showed a necrotic-appearing mass identified in the upper mid pole of the left kidney, slightly increased in size, now measuring 5.4 x 3.6 cm compared to 5.1 x 3.7 cm in a previous study. She also has some punctate intrarenal calculi versus vascular calcification noted within the right kidney. No obstructive uropathy bilaterally. She also has mild right lower lobe bronchiectasis inferiorly and limited bilateral lower lobe fibrosis in the lungs. Abdominal pelvic CT followup done on 01/18/2018 at [facility], Division of Radiology [facility] showed the left renal mass and this study was done with IV contrast, showed a left renal mass measuring 4.1 x 5.7 x 6 cm. The mass was solid, well circumcised, with a central necrosis and appears to be well encapsulated. No evidence of extension beyond the kidney. No visible retroperitoneal adenopathy and compared to the prior study where the mass measured 3.9 x 5.1 x 5.7 cm. The right kidney was unremarkable. No hydronephrosis and no solid mass. Incidental finding of a medial mid pole cyst measuring 1.6 x 1.5 cm. Her urinary bladder was unremarkable. PHYSICAL EXAMINATION: GENERAL: She is a well-developed, well-nourished [place] female. She is alert. She is oriented. HEENT: Grossly within normal limits. NECK: Supple. Thyroid not palpable. ABDOMEN: Soft, not distended or tender. No CVA tenderness. No suprapubic tenderness. EXTREMITIES: She has full range of motion in both upper and lower extremities. No leg edema or calf tenderness. GENITOURINARY: She voids with her usual normal urinary stream without any dysuria, gross hematuria, renal colic, or abdominal pain. LABORATORY EVALUATION: On 01/21/2018 showed a CBC with a WBC count of 8.3, hemoglobin of 13.6, hematocrit of 40.5, and a platelet count of 198,000. Her chem profile showed a sodium of 140, potassium 4.4, chloride 104, CO2 28, BUN and creatinine 29 and 0.8 respectively with a GFR of greater than 60, calcium 8.2. Her urine C and S done on 01/17/2018 showed no growth. A urinalysis done on 01/17/2018 showed the color was yellow, clarity was clear, pH 6, specific gravity 1.011. Protein 30. Glucose, ketones, blood, nitrites, bilirubin all negative. Urobilinogen 0.2 to 1. Leukocyte esterase small, less than 1 rbc's, 8 wbc's, and occasional bacteria per high-powered field. Urine C and S showed no growth. DIAGNOSTIC IMPRESSION: A slightly increased size in her left renal mass, most likely mid pole with a central necrosis. PLAN: Follow up with her urologist, which could be Dr. Torres Baxter at [facility]. The patient was given a copy of the recent abdominopelvic CT done with IV contrast to show to her urologist at [facility] in [place]. Dwain Chaudhry MD
[2018-01-23] MEDS: guaiFENesin 100 mg/5 ml Syrup UD PO PRN ×2 (04:44→23:29)
[2018-01-23] MEDS: Levothyroxine 100 MCG TAB PO SCH (05:56)
[2018-01-23] MEDS: Albuterol-Ipratrop 3 mg / 0.5 (3 ml) UD INH SCH ×4 (07:39→19:05)
[2018-01-23] MEDS: Calcium-Vit D 500 mg-200 Units Tab UD PO SCH (08:58)
[2018-01-23] MEDS: Pantoprazole 20 mg EC Tab PO SCH (08:58)
[2018-01-23] MEDS: Multivitamin With Minerals Tab PO SCH (08:58)
[2018-01-23] MEDS: MethylPREDNISolone 40 mg Vial IVP SCH (08:59)
[2018-01-23] MEDS: Cefepime 1 GM in Sodium Chloride 0.9% 100 ML IVPB SCH ×2 (09:05→21:24)
--- NOTE | 2018-01-23 09:55 | CP.PCM.PN ---
Subjective - Date & Time of Evaluation Date of Evaluation: 01/23/18 Time of Evaluation: 09:54 - Subjective Subjective: Continues to have a congested cough, but decreasing daily. Clinically remains stable otherwise. Will discontinue parenteral corticosteroids and start oral prednisone. Patient should also have education about postural drainage to help clear secretions as well. Remains on empiric antibiotic presently, consider PO at discharge to complete 2 weeks of therapy. Objective - Vital Signs/Intake and Output Vital Signs (last 24 hours): Temp Pulse Resp BP Pulse Ox 97.4 F L 75 20 129/63 95 01/23/18 08:34 01/23/18 08:59 01/23/18 08:34 01/23/18 08:59 01/23/18 08:34 - Medications Medications: Current Medications Albuterol Sulfate (Albuterol 0.083% Inhal Molly (2.5 Mg/3 Ml) Ud) 2.5 mg INH RQ4 PRN PRN Reason: Shortness of Breath Albuterol/Ipratropium (Duoneb 3 Mg/0.5 Mg (3 Ml) Ud) 3 ml INH RQID [facility] Last Admin: 01/23/18 07:39 Dose: 3 ml Alendronate Sodium (Fosamax) 70 mg PO QWK [facility] Aspirin (Ecotrin) 81 mg PO DAILY [facility] Last Admin: 01/23/18 08:58 Dose: 81 mg Benzonatate (Tessalon Perles) 200 mg PO Q8 [facility] Last Admin: 01/23/18 08:58 Dose: 200 mg Calcium/Vitamin D (Oyster Shell Calcium/Vitamin D 500 Mg-200 Iu) 1 tab PO DAILY [facility] Last Admin: 01/23/18 08:58 Dose: 1 tab Gabapentin (Neurontin) 300 mg PO Q12 [facility] Last Admin: 01/23/18 08:58 Dose: 300 mg Guaifenesin (Robitussin) 100 mg PO Q6 PRN PRN Reason: Cough Last Admin: 01/23/18 04:44 Dose: 100 mg Cefepime HCl 1 gm/ Sodium (Chloride) 100 mls @ 100 mls/hr IVPB Q12 [facility]; Protocol Last Admin: 01/23/18 09:05 Dose: 100 mls/hr Levothyroxine Sodium (Synthroid) 100 mcg PO DAILY@0630 [facility] Last Admin: 01/23/18 05:56 Dose: 100 mcg Losartan Potassium (Cozaar) 25 mg PO DAILY [facility] Last Admin: 01/23/18 08:59 Dose: 25 mg Methylprednisolone (Solu-Medrol) 40 mg IVP DAILY [facility] Last Admin: 01/23/18 08:59 Dose: 40 mg Metoprolol Tartrate (Lopressor) 25 mg PO DAILY [facility] Last Admin: 01/23/18 08:58 Dose: 25 mg Multivitamins/Minerals (Therapeutic-M Tab) 1 tab PO DAILY [facility] Last Admin: 01/23/18 08:58 Dose: 1 tab Pantoprazole Sodium (Protonix Ec Tab) 20 mg PO DAILY [facility] Last Admin: 01/23/18 08:58 Dose: 20 mg Pravastatin Sodium (Pravachol) 20 mg PO HS [facility] Last Admin: 01/22/18 21:12 Dose: 20 mg - Labs Labs: 01/21/18 06:00 01/21/18 06:00 PT 11.1 Seconds (9.8-13.1) 01/17/18 09:03 INR 1.0 01/17/18 09:03 APTT 28.6 Seconds (25.6-37.1) 01/17/18 09:03 Assessment and Plan (1) Respiratory distress, acute Status: Resolved (2) Acute bronchitis Status: Acute (3) COPD with acute exacerbation Status: Acute (4) Vocal cord paralysis Status: Chronic
--- NOTE | 2018-01-23 10:38 | CP.PCM.PN ---
Subjective - Date & Time of Evaluation Date of Evaluation: 01/23/18 Time of Evaluation: 10:20 - Subjective Subjective: BREATHING A LITTLE BETTER MAIN COMPLAINT IS OF COUGH DURING THE NIGHT THAT PREVENTS HER FROM SLEEPING WELL Objective - Vital Signs/Intake and Output Vital Signs (last 24 hours): Temp Pulse Resp BP Pulse Ox 97.4 F L 75 20 129/63 95 01/23/18 08:34 01/23/18 08:59 01/23/18 08:34 01/23/18 08:59 01/23/18 08:34 - Medications Medications: Current Medications Albuterol Sulfate (Albuterol 0.083% Inhal Molly (2.5 Mg/3 Ml) Ud) 2.5 mg INH RQ4 PRN PRN Reason: Shortness of Breath Albuterol/Ipratropium (Duoneb 3 Mg/0.5 Mg (3 Ml) Ud) 3 ml INH RQID [facility] Last Admin: 01/23/18 07:39 Dose: 3 ml Alendronate Sodium (Fosamax) 70 mg PO QWK [facility] Aspirin (Ecotrin) 81 mg PO DAILY [facility] Last Admin: 01/23/18 08:58 Dose: 81 mg Benzonatate (Tessalon Perles) 200 mg PO Q8 [facility] Last Admin: 01/23/18 08:58 Dose: 200 mg Calcium/Vitamin D (Oyster Shell Calcium/Vitamin D 500 Mg-200 Iu) 1 tab PO DAILY [facility] Last Admin: 01/23/18 08:58 Dose: 1 tab Gabapentin (Neurontin) 300 mg PO Q12 [facility] Last Admin: 01/23/18 08:58 Dose: 300 mg Guaifenesin (Robitussin) 100 mg PO Q6 PRN PRN Reason: Cough Last Admin: 01/23/18 04:44 Dose: 100 mg Cefepime HCl 1 gm/ Sodium (Chloride) 100 mls @ 100 mls/hr IVPB Q12 [facility]; Protocol Last Admin: 01/23/18 09:05 Dose: 100 mls/hr Levothyroxine Sodium (Synthroid) 100 mcg PO DAILY@0630 [facility] Last Admin: 01/23/18 05:56 Dose: 100 mcg Losartan Potassium (Cozaar) 25 mg PO DAILY [facility] Last Admin: 01/23/18 08:59 Dose: 25 mg Metoprolol Tartrate (Lopressor) 25 mg PO DAILY [facility] Last Admin: 01/23/18 08:58 Dose: 25 mg Multivitamins/Minerals (Therapeutic-M Tab) 1 tab PO DAILY [facility] Last Admin: 01/23/18 08:58 Dose: 1 tab Pantoprazole Sodium (Protonix Ec Tab) 40 mg PO DAILY [facility] Pravastatin Sodium (Pravachol) 20 mg PO HS [facility] Last Admin: 01/22/18 21:12 Dose: 20 mg Prednisone (Prednisone Tab) 10 mg PO BID [facility] - Labs Labs: 01/21/18 06:00 01/21/18 06:00 PT 11.1 Seconds (9.8-13.1) 01/17/18 09:03 INR 1.0 01/17/18 09:03 APTT 28.6 Seconds (25.6-37.1) 01/17/18 09:03 - Respiratory Exam Respiratory Exam: Rhonchi - Cardiovascular Exam Cardiovascular Exam: REGULAR RHYTHM, +S1, +S2 - Extremities Exam Additional comments: TRACE LE EDEMA Assessment and Plan - Assessment and Plan (Free Text) Assessment: COPD WITH BRONCHITIS AND BRONCHIECTASIS HYPERTENSION HYPERLIPIDEMIA RENAL MASS PARALYZED VOCAL CORD Plan: CONTINUE LOSARTAN, METOPROLOL, PRAVASTATIN, ASPIRIN, ANTIBIOTICS, COPD MEDS
[2018-01-23] MEDS: Pravastatin Sodium 20 MG TAB PO SCH (21:25)
[2018-01-24] MEDS: guaiFENesin 100 mg/5 ml Syrup UD PO PRN (06:26)
[2018-01-24] MEDS: Levothyroxine 100 MCG TAB PO SCH (06:27)
[2018-01-24] MEDS: Albuterol-Ipratrop 3 mg / 0.5 (3 ml) UD INH SCH ×2 (07:42→11:18)
[2018-01-24 08:32] VITALS: BP 149/88; PULSE 63; RESP 18; TEMP 97.2; O2SAT 94
[2018-01-24] MEDS ORDERED: Pantoprazole 40 mg EC Tab PO SCH (09:00)
[2018-01-24] MEDS: Cefepime 1 GM in Sodium Chloride 0.9% 100 ML IVPB SCH (09:33)
[2018-01-24] MEDS: Calcium-Vit D 500 mg-200 Units Tab UD PO SCH (09:34)
[2018-01-24] MEDS: Multivitamin With Minerals Tab PO SCH (09:34)
--- NOTE | 2018-01-24 10:49 | CP.PCM.PN ---
Subjective - Date & Time of Evaluation Date of Evaluation: 01/24/18 Time of Evaluation: 09:30 - Subjective Subjective: STILL COMPLAINS OF COUGH AND NOW WITH RIGHT SIDED THROAT SORENESS BREATHING BETTER Objective - Vital Signs/Intake and Output Vital Signs (last 24 hours): Temp Pulse Resp BP Pulse Ox 97.2 F L 63 18 149/88 94 L 01/24/18 08:31 01/24/18 09:34 01/24/18 08:31 01/24/18 09:34 01/24/18 08:31 - Medications Medications: Current Medications Albuterol Sulfate (Albuterol 0.083% Inhal Molly (2.5 Mg/3 Ml) Ud) 2.5 mg INH RQ4 PRN PRN Reason: Shortness of Breath Albuterol/Ipratropium (Duoneb 3 Mg/0.5 Mg (3 Ml) Ud) 3 ml INH RQID [facility] Last Admin: 01/24/18 07:42 Dose: 3 ml Alendronate Sodium (Fosamax) 70 mg PO QWK [facility] Aspirin (Ecotrin) 81 mg PO DAILY [facility] Last Admin: 01/24/18 09:34 Dose: 81 mg Benzonatate (Tessalon Perles) 200 mg PO Q8 [facility] Last Admin: 01/24/18 09:33 Dose: 200 mg Calcium/Vitamin D (Oyster Shell Calcium/Vitamin D 500 Mg-200 Iu) 1 tab PO DAILY [facility] Last Admin: 01/24/18 09:34 Dose: 1 tab Gabapentin (Neurontin) 300 mg PO Q12 [facility] Last Admin: 01/24/18 09:34 Dose: 300 mg Guaifenesin (Robitussin) 100 mg PO Q6 PRN PRN Reason: Cough Last Admin: 01/24/18 06:26 Dose: 100 mg Cefepime HCl 1 gm/ Sodium (Chloride) 100 mls @ 100 mls/hr IVPB Q12 [facility]; Protocol Last Admin: 01/24/18 09:33 Dose: 100 mls/hr Levothyroxine Sodium (Synthroid) 100 mcg PO DAILY@0630 [facility] Last Admin: 01/24/18 06:27 Dose: 100 mcg Losartan Potassium (Cozaar) 25 mg PO DAILY [facility] Last Admin: 01/24/18 09:33 Dose: 25 mg Metoprolol Tartrate (Lopressor) 25 mg PO DAILY [facility] Last Admin: 01/24/18 09:34 Dose: 25 mg Multivitamins/Minerals (Therapeutic-M Tab) 1 tab PO DAILY [facility] Last Admin: 01/24/18 09:34 Dose: 1 tab Pantoprazole Sodium (Protonix Ec Tab) 40 mg PO DAILY [facility] Last Admin: 01/24/18 09:34 Dose: 40 mg Pravastatin Sodium (Pravachol) 20 mg PO HS [facility] Last Admin: 01/23/18 21:25 Dose: 20 mg Prednisone (Prednisone Tab) 10 mg PO BID [facility] Last Admin: 01/24/18 09:33 Dose: 10 mg - Labs Labs: 01/21/18 06:00 01/21/18 06:00 PT 11.1 Seconds (9.8-13.1) 01/17/18 09:03 INR 1.0 01/17/18 09:03 APTT 28.6 Seconds (25.6-37.1) 01/17/18 09:03 - Respiratory Exam Respiratory Exam: Clear to Ausculation Bilateral - Cardiovascular Exam Cardiovascular Exam: REGULAR RHYTHM, +S1, +S2 - Extremities Exam Additional comments: TRACE LE EDEMA(SITTING UP WITH LEGS HANGING OVER SIDE OF BED) Assessment and Plan - Assessment and Plan (Free Text) Plan: CONTINUE LOSARTAN, METOPROLOL, PRAVACHOL, ASPIRIN, ANTIBIOTICS AND COPD MEDS STEROIDS CHANGED TO PO PREDNISONE
--- NOTE | 2018-01-24 10:56 | CP.PCM.PN ---
<Peter Barkley - Last Filed: 01/24/18 10:56> Subjective - Date & Time of Evaluation Date of Evaluation: 01/24/18 Time of Evaluation: 10:56 Objective - Vital Signs/Intake and Output Vital Signs (last 24 hours): Temp Pulse Resp BP Pulse Ox 97.2 F L 63 18 149/88 94 L 01/24/18 08:31 01/24/18 09:34 01/24/18 08:31 01/24/18 09:34 01/24/18 08:31 - Medications Medications: Current Medications Albuterol Sulfate (Albuterol 0.083% Inhal Molly (2.5 Mg/3 Ml) Ud) 2.5 mg INH RQ4 PRN PRN Reason: Shortness of Breath Albuterol/Ipratropium (Duoneb 3 Mg/0.5 Mg (3 Ml) Ud) 3 ml INH RQID [facility] Last Admin: 01/24/18 07:42 Dose: 3 ml Alendronate Sodium (Fosamax) 70 mg PO QWK [facility] Aspirin (Ecotrin) 81 mg PO DAILY [facility] Last Admin: 01/24/18 09:34 Dose: 81 mg Benzonatate (Tessalon Perles) 200 mg PO Q8 [facility] Last Admin: 01/24/18 09:33 Dose: 200 mg Calcium/Vitamin D (Oyster Shell Calcium/Vitamin D 500 Mg-200 Iu) 1 tab PO DAILY [facility] Last Admin: 01/24/18 09:34 Dose: 1 tab Gabapentin (Neurontin) 300 mg PO Q12 [facility] Last Admin: 01/24/18 09:34 Dose: 300 mg Guaifenesin (Robitussin) 100 mg PO Q6 PRN PRN Reason: Cough Last Admin: 01/24/18 06:26 Dose: 100 mg Cefepime HCl 1 gm/ Sodium (Chloride) 100 mls @ 100 mls/hr IVPB Q12 [facility]; Protocol Last Admin: 01/24/18 09:33 Dose: 100 mls/hr Levothyroxine Sodium (Synthroid) 100 mcg PO DAILY@0630 [facility] Last Admin: 01/24/18 06:27 Dose: 100 mcg Losartan Potassium (Cozaar) 25 mg PO DAILY [facility] Last Admin: 01/24/18 09:33 Dose: 25 mg Metoprolol Tartrate (Lopressor) 25 mg PO DAILY [facility] Last Admin: 01/24/18 09:34 Dose: 25 mg Multivitamins/Minerals (Therapeutic-M Tab) 1 tab PO DAILY [facility] Last Admin: 01/24/18 09:34 Dose: 1 tab Pantoprazole Sodium (Protonix Ec Tab) 40 mg PO DAILY [facility] Last Admin: 01/24/18 09:34 Dose: 40 mg Pravastatin Sodium (Pravachol) 20 mg PO HS [facility] Last Admin: 01/23/18 21:25 Dose: 20 mg Prednisone (Prednisone Tab) 10 mg PO BID [facility] Last Admin: 01/24/18 09:33 Dose: 10 mg - Labs Labs: 01/21/18 06:00 01/21/18 06:00 PT 11.1 Seconds (9.8-13.1) 01/17/18 09:03 INR 1.0 01/17/18 09:03 APTT 28.6 Seconds (25.6-37.1) 01/17/18 09:03 Assessment and Plan (1) Respiratory distress, acute Status: Resolved (2) Acute bronchitis Status: Acute (3) COPD with acute exacerbation Status: Acute (4) Vocal cord paralysis Status: Chronic <Yousuf Dorsey - Last Filed: 01/24/18 11:53> Subjective - Subjective Subjective: Patient seen and examined at bedside this morning. There are no events overnight, NAD. Patient reports some improvement w/ breathing but still has persistent cough. Patient otherwise clinically stable. Patient is optimized for DC home. Patient to DC home w/ PO cephalosporin BID for 12 more days, PO prednisone 10 mg BID for 14 days, and topical acyclovir for cold sore on lip. Objective - Vital Signs/Intake and Output Vital Signs (last 24 hours): Temp Pulse Resp BP Pulse Ox 97.2 F L 63 18 149/88 94 L 01/24/18 08:31 12 09:34 12 08:31 01/24/18 09:34 01/24/18 08:31 - Medications Medications: Current Medications Albuterol Sulfate (Albuterol 0.083% Inhal Molly (2.5 Mg/3 Ml) Ud) 2.5 mg INH RQ4 PRN PRN Reason: Shortness of Breath Albuterol/Ipratropium (Duoneb 3 Mg/0.5 Mg (3 Ml) Ud) 3 ml INH RQID [facility] Last Admin: 01/24/18 11:18 Dose: 3 ml Alendronate Sodium (Fosamax) 70 mg PO QWK [facility] Aspirin (Ecotrin) 81 mg PO DAILY [facility] Last Admin: 01/24/18 09:34 Dose: 81 mg Benzonatate (Tessalon Perles) 200 mg PO Q8 [facility] Last Admin: 01/24/18 09:33 Dose: 200 mg Calcium/Vitamin D (Oyster Shell Calcium/Vitamin D 500 Mg-200 Iu) 1 tab PO DAILY [facility] Last Admin: 01/24/18 09:34 Dose: 1 tab Gabapentin (Neurontin) 300 mg PO Q12 [facility] Last Admin: 01/24/18 09:34 Dose: 300 mg Guaifenesin (Robitussin) 100 mg PO Q6 PRN PRN Reason: Cough Last Admin: 01/24/18 06:26 Dose: 100 mg Cefepime HCl 1 gm/ Sodium (Chloride) 100 mls @ 100 mls/hr IVPB Q12 [facility]; Protocol Last Admin: 01/24/18 09:33 Dose: 100 mls/hr Levothyroxine Sodium (Synthroid) 100 mcg PO DAILY@0630 [facility] Last Admin: 01/24/18 06:27 Dose: 100 mcg Losartan Potassium (Cozaar) 25 mg PO DAILY [facility] Last Admin: 01/24/18 09:33 Dose: 25 mg Metoprolol Tartrate (Lopressor) 25 mg PO DAILY [facility] Last Admin: 01/24/18 09:34 Dose: 25 mg Multivitamins/Minerals (Therapeutic-M Tab) 1 tab PO DAILY [facility] Last Admin: 01/24/18 09:34 Dose: 1 tab Pantoprazole Sodium (Protonix Ec Tab) 40 mg PO DAILY [facility] Last Admin: 01/24/18 09:34 Dose: 40 mg Pravastatin Sodium (Pravachol) 20 mg PO HS [facility] Last Admin: 01/23/18 21:25 Dose: 20 mg Prednisone (Prednisone Tab) 10 mg PO BID [facility] Last Admin: 01/24/18 09:33 Dose: 10 mg - Labs Labs: 01/21/18 06:00 01/21/18 06:00 PT 11.1 Seconds (9.8-13.1) 01/17/18 09:03 INR 1.0 01/17/18 09:03 APTT 28.6 Seconds (25.6-37.1) 01/17/18 09:03 - Constitutional Appears: Non-toxic, No Acute Distress - Head Exam Head Exam: NORMAL INSPECTION - Eye Exam Eye Exam: Normal appearance - ENT Exam ENT Exam: Mucous Membranes Moist Additional comments: crusted vesicle on mid upper lip, no thrush - Neck Exam Neck Exam: Full ROM. absent: Tenderness - Respiratory Exam Respiratory Exam: Decreased Breath Sounds, Rales, Wheezes (mild expiratory) Additional comments: more so on the right - Cardiovascular Exam Cardiovascular Exam: REGULAR RHYTHM. absent: Tachycardia - GI/Abdominal Exam GI & Abdominal Exam: Soft, Normal Bowel Sounds. absent: Distended, Tenderness - Extremities Exam Extremities Exam: absent: Tenderness - Neurological Exam Neurological Exam: Alert, Awake, Oriented x3 - Skin Skin Exam: Dry, Warm Assessment and Plan (1) Respiratory distress, acute Status: Resolved (2) COPD with acute exacerbation Status: Acute (3) Acute bronchitis Status: Acute (4) Vocal cord paralysis Status: Chronic - Assessment and Plan (Free Text) Assessment: 87 y/o woman w/ pmh of CAD, aortic valve replacement, vocal cord paralysis s/p thyroidectomy, admitted for evaluation and management of worsening dyspnea and cough. Plan: - clinically stable - improvement on breathing - cough persists; however, most likely due to vocal cord paralysis - counseled patient to follow up w/ ENT - DC home w/ PO ceftin BID for 12 days, PO prednisone 10 mg for 14 days, and topical acyclovir prn
--- NOTE | 2018-01-24 12:22 | CP.PCM.PCO ---
Assessment & Plan - Assessment and Plan (Free Text) Assessment: pt. sitting up in bed, reports feeling better but c/o cough, denies sob, cp, dizziness pt. cleared for d/c to home today by and f/u with Dr. Henry outpatient ; f/u [facility] urologist outpt cont. meds per med rec
--- NOTE | 2018-01-24 14:08 | CP.PCM.DIS ---
<Jem Chilel - Last Filed: 01/24/18 14:03> Provider - Provider Date of Admission: 01/19/18 10:02 Attending physician: Alfredo Ayala MD Consults: 01/17/18 14:33 Cardiology Consult Routine Comment: Consulting Provider: Shravan Saenz Consulting Physician: Shravan Saenz Reason for Consult: CHF Pulmonology Consult Routine Comment: Consulting Provider: Peter Barkley Consulting Physician: Peter Barkley Reason for Consult: sob,cough 01/21/18 10:24 Urology Consult Routine Comment: Consulting Provider: Dwain Chaudhry Consulting Physician: Dwain Chaudhry Reason for Consult: LEFT NECROTIC RENAL MASS Time Spent in preparation of Discharge (in minutes): 35 Diagnosis - Discharge Diagnosis (1) COPD with acute exacerbation Status: Resolved Priority: High (2) Acute bronchitis Status: Resolved Priority: High Hospital Course - Lab Results Lab Results: Micro Results 01/20/18 10:01 Sputum Gram Stain - Final 01/20/18 10:01 Sputum Sputum Culture - Final Yeast Species 01/17/18 09:03 Blood Blood Culture - Final NO GROWTH AFTER 5 DAYS 01/17/18 09:03 Blood Gram Stain - Final TEST NOT PERFORMED 01/17/18 12:10 Urine Urine Culture - Final No Growth (<1,000 CFU/ML) Most Recent Lab Values WBC 8.3 K/uL (4.8-10.8) 01/21/18 06:00 RBC 4.32 Mil/uL (3.80-5.20) 01/21/18 06:00 Hgb 13.6 g/dL (12.0-16.0) 01/21/18 06:00 Hct 40.5 % (34.0-47.0) 01/21/18 06:00 MCV 93.7 fl (81.0-99.0) 01/21/18 06:00 MCH 31.4 pg (27.0-31.0) H 01/21/18 06:00 MCHC 33.6 g/dL (33.0-37.0) 01/21/18 06:00 RDW 13.3 % (11.5-14.5) 01/21/18 06:00 Plt Count 198 K/uL (130-400) 01/21/18 06:00 MPV 8.2 fl (7.2-11.7) 01/18/18 04:45 Neut % (Auto) 75.2 % (50.0-75.0) H 01/18/18 04:45 Lymph % (Auto) 15.6 % (20.0-40.0) L 01/18/18 04:45 Boyd % (Auto) 7.6 % (0.0-10.0) 01/18/18 04:45 Eos % (Auto) 1.4 % (0.0-4.0) 01/18/18 04:45 Baso % (Auto) 0.2 % (0.0-2.0) 01/18/18 04:45 Neut # (Auto) 5.5 K/uL (1.8-7.0) 01/18/18 04:45 Lymph # (Auto) 1.1 K/uL (1.0-4.3) 01/18/18 04:45 Boyd # (Auto) 0.6 K/uL (0.0-0.8) 01/18/18 04:45 Eos # (Auto) 0.1 K/uL (0.0-0.7) 01/18/18 04:45 Baso # (Auto) 0.0 K/uL (0.0-0.2) 01/18/18 04:45 Neutrophils % (Manual) 87 % (42-75) H 01/17/18 09:03 Lymphocytes % (Manual) 8 % (20-50) L 01/17/18 09:03 Monocytes % (Manual) 5 % (0-10) 01/17/18 09:03 Platelet Estimate Normal (NORMAL) 01/17/18 09:03 RBC Morphology Normal (NORMAL) 01/17/18 09:03 PT 11.1 Seconds (9.8-13.1) 01/17/18 09:03 INR 1.0 01/17/18 09:03 APTT 28.6 Seconds (25.6-37.1) 01/17/18 09:03 pCO2 39 mm/Hg (35-45) 01/17/18 08:49 pO2 86 mm/Hg (80-100) 01/17/18 08:49 HCO3 27.2 mmol/L (21-28) 01/17/18 08:49 ABG pH 7.45 (7.35-7.45) 01/17/18 08:49 ABG Total CO2 28.3 mmol/L (22-28) H 01/17/18 08:49 ABG O2 Saturation 99.4 % (95-98) H 01/17/18 08:49 ABG Base Excess 3.0 mmol/L (-2.0-3.0) 01/17/18 08:49 Kin Test Yes 01/17/18 08:49 ABG Potassium 4.4 mmol/L (3.6-5.2) 01/17/18 08:49 A-a O2 Difference 93.0 mm/Hg 01/17/18 08:49 Sodium 137.0 mmol/L (132-148) 01/17/18 08:49 Chloride 104.0 mmol/L (98-107) 01/17/18 08:49 Glucose 121 mg/dL (65-105) H 01/17/18 08:49 Lactate 1.8 mmol/L (0.7-2.1) 01/17/18 08:49 Vent Mode Nc 01/17/18 08:49 FiO2 32.0 % 01/17/18 08:49 Sodium 140 mmol/l (132-148) 01/21/18 06:00 Potassium 4.4 MMOL/L (3.6-5.0) 01/21/18 06:00 Chloride 104 mmol/L (98-107) 01/21/18 06:00 Carbon Dioxide 28 mmol/L (22-30) 01/21/18 06:00 Anion Gap 12 (10-20) 01/21/18 06:00 BUN 29 mg/dl (7-17) H 01/21/18 06:00 Creatinine 0.8 mg/dl (0.7-1.2) 01/21/18 06:00 Est GFR ( Amer) > 60 01/21/18 06:00 Est GFR (Non-Af Amer) > 60 01/21/18 06:00 Random Glucose 93 mg/dL (65-105) 01/21/18 06:00 Calcium 8.2 mg/dL (8.4-10.2) L 01/21/18 06:00 Phosphorus 4.7 mg/dl (2.5-4.5) H 01/17/18 09:03 Magnesium 2.0 MG/DL (1.6-2.3) 01/17/18 09:03 Total Bilirubin 0.5 mg/dl (0.2-1.3) 01/18/18 04:45 AST 28 U/L (14-36) 01/18/18 04:45 ALT 32 U/L (9-52) 01/18/18 04:45 Alkaline Phosphatase 40 U/L (38-126) 01/18/18 04:45 Troponin I 0.0970 ng/mL (0.00-0.120) 01/17/18 09:03 NT-Pro-B Natriuret Pep 2080 pg/ml (0-900) H 01/17/18 09:03 Total Protein 7.1 G/DL (6.3-8.2) 01/18/18 04:45 Albumin 3.7 g/dL (3.5-5.0) 01/18/18 04:45 Globulin 3.4 gm/dL (2.2-3.9) 01/18/18 04:45 Albumin/Globulin Ratio 1.1 (1.0-2.1) 01/18/18 04:45 A1AT Clinical Indicatr Not given 01/18/18 04:45 A1AT Referred By Not given 01/18/18 04:45 Depfr-0-Aexbfzuulka 145 mg/dL (83-199) 01/18/18 04:45 A1AT Mutation See note 01/18/18 04:45 A. tenuis Allergen IgE <0.10 kU/L (<0.10) 01/18/18 12:02 A. tenuis Conven Class 0 01/18/18 12:02 Aspergillus fumigatus <0.10 kU/L (<0.10) 01/18/18 12:02 A. fumigatus ASM Class 0 01/18/18 12:02 Cladosporium herbarum <0.10 kU/L (<0.10) 01/18/18 12:02 C. herbarum ASM Class 0 01/18/18 12:02 D. farinae IgE Class 0 01/18/18 12:02 D. farinae Allrgen IgE <0.10 kU/L (<0.10) 01/18/18 12:02 D. pteronyssinus Class 0 01/18/18 12:02 D. pteronyssinus IgE <0.10 kU/L (<0.10) 01/18/18 12:02 Penicillium notatum <0.10 kU/L (<0.10) 01/18/18 12:02 P, notatum ASM Class 0 01/18/18 12:02 Birch [employer] Class 0 01/18/18 12:02 [place] Allrg <0.10 kU/L (<0.10) 01/18/18 12:02 [place] Conven Cls 0 01/18/18 12:02 Elm Tree Allergen <0.10 kU/L (<0.10) 01/18/18 12:02 Elm [employer] Class 0 01/18/18 12:02 Maple ([place]) Allg <0.10 kU/L (<0.10) 01/18/18 12:02 Maple Convention Clss 0 01/18/18 12:02 [place] Tree Allerg <0.10 kU/L (<0.10) 01/18/18 12:02 [place] [employer] Class 0 01/18/18 12:02 [place] [employer] Class 0 01/18/18 12:02 [place] Tree Allergen <0.10 kU/L (<0.10) 01/18/18 12:02 [place] Tree ASM Class 0 01/18/18 12:02 [place] Allergen <0.10 kU/L (<0.10) 01/18/18 12:02 [place] Tree Allergen <0.10 kU/L (<0.10) 01/18/18 12:02 [place] [employer] Class 0 01/18/18 12:02 [place] Tree Allergen <0.10 kU/L (<0.10) 01/18/18 12:02 [place] [employer] Class 0 01/18/18 12:02 [place] Tree Allerg <0.10 kU/L (<0.10) 01/18/18 12:02 [place] [employer] Clss 0 01/18/18 12:02 [place] Allergen <0.10 kU/L (<0.10) 01/18/18 12:02 [place] Grass Allergen <0.10 kU/L (<0.10) 01/18/18 12:02 [place] Grass [employer] Cl 0 01/18/18 12:02 [place] Grass Allergen <0.10 kU/L (<0.10) 01/18/18 12:02 [place] Grass Cnvnt Cls 0 01/18/18 12:02 Common Pigweed Allerg <0.10 kU/L (<0.10) 01/18/18 12:02 Common Ragweed Allergen <0.10 kU/L (<0.10) 01/18/18 12:02 Comm Ragweed Cnvnt Cls 0 01/18/18 12:02 Mugwort Allergen <0.10 kU/L (<0.10) 01/18/18 12:02 Mugwort Conventional 0 01/18/18 12:02 Pigweed Conventional 0 01/18/18 12:02 [place] Allergen <0.10 kU/L (<0.10) 01/18/18 12:02 [place] Conven Cls 0 01/18/18 12:02 Cat Dander Allergen <0.10 kU/L (<0.10) 01/18/18 12:02 Cat [place] [employer] Class 0 01/18/18 12:02 Dog Dander IgE Allergen <0.10 kU/L (<0.10) 01/18/18 12:02 Dog [place]ander [employer] Cls 0 01/18/18 12:02 Mouse Urine Allergen <0.10 kU/L (<0.10) 01/18/18 12:02 Mouse Urine Conven Clss 0 01/18/18 12:02 Cockroach Allergen <0.10 kU/L (<0.10) 01/18/18 12:02 Cockroach [employer] Clss 0 01/18/18 12:02 Arterial Blood Potassium 4.4 mmol/L (3.6-5.2) 01/17/18 08:49 Urine Color Yellow (YELLOW) 01/17/18 12:10 Urine Clarity Clear (Clear) 01/17/18 12:10 Urine pH 6.0 (5.0-8.0) 01/17/18 12:10 Ur Specific [place] 1.011 (1.003-1.030) 01/17/18 12:10 Urine Protein 30 mg/dL (NEGATIVE) 01/17/18 12:10 Urine Glucose (UA) Neg mg/dL (Normal) 01/17/18 12:10 Urine Ketones Negative mg/dL (NEGATIVE) 01/17/18 12:10 Urine Blood Negative (NEGATIVE) 01/17/18 12:10 Urine Nitrate Negative (NEGATIVE) 01/17/18 12:10 Urine Bilirubin Negative (NEGATIVE) 01/17/18 12:10 Urine Urobilinogen 0.2-1.0 mg/dL (0.2-1.0) 01/17/18 12:10 Ur Leukocyte Esterase Small Bridgett/uL (Negative) 01/17/18 12:10 Urine RBC (Auto) < 1 /hpf (0-3) 01/17/18 12:10 Urine Microscopic WBC 8 /hpf (0-5) H 01/17/18 12:10 Ur Squamous Epith Cells 2 /hpf (0-5) 01/17/18 12:10 Ur Transition Epith Cell 2 /hpf (0-3) 01/17/18 12:10 Urine Bacteria Occ (<OCC) H 01/17/18 12:10 IgE 108 kU/L (<py=232) 01/18/18 12:02 Influenza Typ A,B (EIA) Negative for flu a/b (NEGATIVE) 01/17/18 09:03 Mycoplasma pneumon IgG 0.97 (<=0.90) H 01/18/18 12:02 Mycoplasma pneumon IgM 33 U/mL (<770) 01/18/18 12:02 - Hospital Course Hospital Course: 87 yo female presented to [facility] with dyspnea and cough, admitted for COPD exacerbation. Pt was treated with scheduled bronchodilators, IV steroids, and IV Antibiotics. Pulmonology (Dr. Barkley) and Cardiology () were consulted for the management of her care. Her respiratory status improved though cough was still presents (likely from vocal cord paralysis) and she was cleared for discharge on cough medication, Ceftin, and po prednisone for 10 days. Instructed to f/ u with Dr. Henry. Cleared from cardio and pulmopnology for discharge. Discharge Exam - Head Exam Head Exam: NORMAL INSPECTION - ENT Exam ENT Exam: Mucous Membranes Moist - Respiratory Exam Respiratory Exam: Rhonchi, Respiratory Distress. absent: Accessory Muscle Use, Wheezes Additional comments: productive cough, rhonchi clears with cough - Cardiovascular Exam Cardiovascular Exam: REGULAR RHYTHM, +S1, +S2. absent: Systolic Murmur - Extremities Exam Extremities exam: normal capillary refill, normal inspection - Neurological Exam Neurological exam: Alert - Psychiatric Exam Psychiatric exam: Normal Affect - Skin Skin Exam: Normal Color Discharge Plan - Discharge Medications Prescriptions: RX: Benzonatate [Tessalon Perles] 200 mg PO Q8 #15 sgl RX: guaiFENesin [Robitussin] 100 mg PO Q6 PRN #20 udc PRN Reason: Cough RX: Losartan [Cozaar] 25 mg PO DAILY #30 tab - Follow Up Plan Condition: FAIR Disposition: HOME/ ROUTINE Instructions: Exacerbation of COPD (DC), Bronchiectasis in Adults Additional Instructions: follow up with in 1 week Referrals: Alfredo Ayala MD [Medical Doctor] - Peter Barkley MD [Staff Provider] - Shravan Saenz MD [Staff Provider] - Cosme Hernandez MD [Staff Provider] - <Alfredo Ayala - Last Filed: 01/24/18 19:21> Provider - Provider Date of Admission: 01/19/18 10:02 Attending physician: Alfredo Ayala MD Consults: 01/17/18 14:33 Cardiology Consult Routine Comment: Consulting Provider: Shravan Saenz Consulting Physician: Shravan Saenz Reason for Consult: CHF Pulmonology Consult Routine Comment: Consulting Provider: Peter Barkley Consulting Physician: Peter Barkley Reason for Consult: sob,cough 01/21/18 10:24 Urology Consult Routine Comment: Consulting Provider: Dwain Chaudhry Consulting Physician: Dwain Chaudhry Reason for Consult: LEFT NECROTIC RENAL MASS Hospital Course - Lab Results Lab Results: Micro Results 01/20/18 10:01 Sputum Gram Stain - Final 01/20/18 10:01 Sputum Sputum Culture - Final Yeast Species 01/17/18 09:03 Blood Blood Culture - Final NO GROWTH AFTER 5 DAYS 01/17/18 09:03 Blood Gram Stain - Final TEST NOT PERFORMED 01/17/18 12:10 Urine Urine Culture - Final No Growth (<1,000 CFU/ML) Most Recent Lab Values WBC 8.3 K/uL (4.8-10.8) 01/21/18 06:00 RBC 4.32 Mil/uL (3.80-5.20) 01/21/18 06:00 Hgb 13.6 g/dL (12.0-16.0) 01/21/18 06:00 Hct 40.5 % (34.0-47.0) 01/21/18 06:00 MCV 93.7 fl (81.0-99.0) 01/21/18 06:00 MCH 31.4 pg (27.0-31.0) H 01/21/18 06:00 MCHC 33.6 g/dL (33.0-37.0) 01/21/18 06:00 RDW 13.3 % (11.5-14.5) 01/21/18 06:00 Plt Count 198 K/uL (130-400) 01/21/18 06:00 MPV 8.2 fl (7.2-11.7) 01/18/18 04:45 Neut % (Auto) 75.2 % (50.0-75.0) H 01/18/18 04:45 Lymph % (Auto) 15.6 % (20.0-40.0) L 01/18/18 04:45 Boyd % (Auto) 7.6 % (0.0-10.0) 01/18/18 04:45 Eos % (Auto) 1.4 % (0.0-4.0) 01/18/18 04:45 Baso % (Auto) 0.2 % (0.0-2.0) 01/18/18 04:45 Neut # (Auto) 5.5 K/uL (1.8-7.0) 01/18/18 04:45 Lymph # (Auto) 1.1 K/uL (1.0-4.3) 01/18/18 04:45 Boyd # (Auto) 0.6 K/uL (0.0-0.8) 01/18/18 04:45 Eos # (Auto) 0.1 K/uL (0.0-0.7) 01/18/18 04:45 Baso # (Auto) 0.0 K/uL (0.0-0.2) 01/18/18 04:45 Neutrophils % (Manual) 87 % (42-75) H 01/17/18 09:03 Lymphocytes % (Manual) 8 % (20-50) L 01/17/18 09:03 Monocytes % (Manual) 5 % (0-10) 01/17/18 09:03 Platelet Estimate Normal (NORMAL) 01/17/18 09:03 RBC Morphology Normal (NORMAL) 01/17/18 09:03 PT 11.1 Seconds (9.8-13.1) 01/17/18 09:03 INR 1.0 01/17/18 09:03 APTT 28.6 Seconds (25.6-37.1) 01/17/18 09:03 pCO2 39 mm/Hg (35-45) 01/17/18 08:49 pO2 86 mm/Hg (80-100) 01/17/18 08:49 HCO3 27.2 mmol/L (21-28) 01/17/18 08:49 ABG pH 7.45 (7.35-7.45) 01/17/18 08:49 ABG Total CO2 28.3 mmol/L (22-28) H 01/17/18 08:49 ABG O2 Saturation 99.4 % (95-98) H 01/17/18 08:49 ABG Base Excess 3.0 mmol/L (-2.0-3.0) 01/17/18 08:49 Kin Test Yes 01/17/18 08:49 ABG Potassium 4.4 mmol/L (3.6-5.2) 01/17/18 08:49 A-a O2 Difference 93.0 mm/Hg 01/17/18 08:49 Sodium 137.0 mmol/L (132-148) 01/17/18 08:49 Chloride 104.0 mmol/L (98-107) 01/17/18 08:49 Glucose 121 mg/dL (65-105) H 01/17/18 08:49 Lactate 1.8 mmol/L (0.7-2.1) 01/17/18 08:49 Vent Mode Nc 01/17/18 08:49 FiO2 32.0 % 01/17/18 08:49 Sodium 140 mmol/l (132-148) 01/21/18 06:00 Potassium 4.4 MMOL/L (3.6-5.0) 01/21/18 06:00 Chloride 104 mmol/L (98-107) 01/21/18 06:00 Carbon Dioxide 28 mmol/L (22-30) 01/21/18 06:00 Anion Gap 12 (10-20) 01/21/18 06:00 BUN 29 mg/dl (7-17) H 01/21/18 06:00 Creatinine 0.8 mg/dl (0.7-1.2) 01/21/18 06:00 Est GFR ( Amer) > 60 01/21/18 06:00 Est GFR (Non-Af Amer) > 60 01/21/18 06:00 Random Glucose 93 mg/dL (65-105) 01/21/18 06:00 Calcium 8.2 mg/dL (8.4-10.2) L 01/21/18 06:00 Phosphorus 4.7 mg/dl (2.5-4.5) H 01/17/18 09:03 Magnesium 2.0 MG/DL (1.6-2.3) 01/17/18 09:03 Total Bilirubin 0.5 mg/dl (0.2-1.3) 01/18/18 04:45 AST 28 U/L (14-36) 01/18/18 04:45 ALT 32 U/L (9-52) 01/18/18 04:45 Alkaline Phosphatase 40 U/L (38-126) 01/18/18 04:45 Troponin I 0.0970 ng/mL (0.00-0.120) 01/17/18 09:03 NT-Pro-B Natriuret Pep 2080 pg/ml (0-900) H 01/17/18 09:03 Total Protein 7.1 G/DL (6.3-8.2) 01/18/18 04:45 Albumin 3.7 g/dL (3.5-5.0) 01/18/18 04:45 Globulin 3.4 gm/dL (2.2-3.9) 01/18/18 04:45 Albumin/Globulin Ratio 1.1 (1.0-2.1) 01/18/18 04:45 A1AT Clinical Indicatr Not given 01/18/18 04:45 A1AT Referred By Not given 01/18/18 04:45 Iyszr-7-Qsqtiidmwsw 145 mg/dL (83-199) 01/18/18 04:45 A1AT Mutation See note 01/18/18 04:45 A. tenuis Allergen IgE <0.10 kU/L (<0.10) 01/18/18 12:02 A. tenuis Conven Class 0 01/18/18 12:02 Aspergillus fumigatus <0.10 kU/L (<0.10) 01/18/18 12:02 A. fumigatus ASM Class 0 01/18/18 12:02 Cladosporium herbarum <0.10 kU/L (<0.10) 01/18/18 12:02 C. herbarum ASM Class 0 01/18/18 12:02 D. farinae IgE Class 0 01/18/18 12:02 D. farinae Allrgen IgE <0.10 kU/L (<0.10) 01/18/18 12:02 D. pteronyssinus Class 0 01/18/18 12:02 D. pteronyssinus IgE <0.10 kU/L (<0.10) 01/18/18 12:02 Penicillium notatum <0.10 kU/L (<0.10) 01/18/18 12:02 P, notatum ASM Class 0 01/18/18 12:02 Birch [employer] Class 0 01/18/18 12:02 [place] Allrg <0.10 kU/L (<0.10) 01/18/18 12:02 [place] Conven Cls 0 01/18/18 12:02 [place] Allergen <0.10 kU/L (<0.10) 01/18/18 12:02 Elm [employer] Class 0 01/18/18 12:02 [place] ([place]) Allg <0.10 kU/L (<0.10) 01/18/18 12:02 [place] Convention Clss 0 01/18/18 12:02 [place] Tree Allerg <0.10 kU/L (<0.10) 01/18/18 12:02 [place] [employer] Class 0 01/18/18 12:02 [place] [employer] Class 0 01/18/18 12:02 [place] Allergen <0.10 kU/L (<0.10) 01/18/18 12:02 [place] Tree ASM Class 0 01/18/18 12:02 [place] Allergen <0.10 kU/L (<0.10) 01/18/18 12:02 [place] Tree Allergen <0.10 kU/L (<0.10) 01/18/18 12:02 [place] [employer] Class 0 01/18/18 12:02 [place] Tree Allergen <0.10 kU/L (<0.10) 01/18/18 12:02 [place] [employer] Class 0 01/18/18 12:02 [place] Tree Allerg <0.10 kU/L (<0.10) 01/18/18 12:02 [place] [employer] Clss 0 01/18/18 12:02 [place] Allergen <0.10 kU/L (<0.10) 01/18/18 12:02 [place] Grass Allergen <0.10 kU/L (<0.10) 01/18/18 12:02 [place] [employer] Cl 0 01/18/18 12:02 [place] Grass Allergen <0.10 kU/L (<0.10) 01/18/18 12:02 [place] Grass Cnvnt Cls 0 01/18/18 12:02 Common Pigweed Allerg <0.10 kU/L (<0.10) 01/18/18 12:02 Common Ragweed Allergen <0.10 kU/L (<0.10) 01/18/18 12:02 Comm Ragweed Cnvnt Cls 0 01/18/18 12:02 Mugwort Allergen <0.10 kU/L (<0.10) 01/18/18 12:02 Mugwort Conventional 0 01/18/18 12:02 Pigweed Conventional 0 01/18/18 12:02 [place] Allergen <0.10 kU/L (<0.10) 01/18/18 12:02 [place] Conven Cls 0 01/18/18 12:02 Cat Dander Allergen <0.10 kU/L (<0.10) 01/18/18 12:02 Cat [place] [employer] Class 0 01/18/18 12:02 Dog [place]ander IgE Allergen <0.10 kU/L (<0.10) 01/18/18 12:02 Dog Dander [employer] Cls 0 01/18/18 12:02 Mouse Urine Allergen <0.10 kU/L (<0.10) 01/18/18 12:02 Mouse Urine Conven Clss 0 01/18/18 12:02 Cockroach Allergen <0.10 kU/L (<0.10) 01/18/18 12:02 Cockroach [employer] Clss 0 01/18/18 12:02 Arterial Blood Potassium 4.4 mmol/L (3.6-5.2) 01/17/18 08:49 Urine Color Yellow (YELLOW) 01/17/18 12:10 Urine Clarity Clear (Clear) 01/17/18 12:10 Urine pH 6.0 (5.0-8.0) 01/17/18 12:10 Ur Specific [place] 1.011 (1.003-1.030) 01/17/18 12:10 Urine Protein 30 mg/dL (NEGATIVE) 01/17/18 12:10 Urine Glucose (UA) Neg mg/dL (Normal) 01/17/18 12:10 Urine Ketones Negative mg/dL (NEGATIVE) 01/17/18 12:10 Urine Blood Negative (NEGATIVE) 01/17/18 12:10 Urine Nitrate Negative (NEGATIVE) 01/17/18 12:10 Urine Bilirubin Negative (NEGATIVE) 01/17/18 12:10 Urine Urobilinogen 0.2-1.0 mg/dL (0.2-1.0) 01/17/18 12:10 Ur Leukocyte Esterase Small Bridgett/uL (Negative) 01/17/18 12:10 Urine RBC (Auto) < 1 /hpf (0-3) 01/17/18 12:10 Urine Microscopic WBC 8 /hpf (0-5) H 01/17/18 12:10 Ur Squamous Epith Cells 2 /hpf (0-5) 01/17/18 12:10 Ur Transition Epith Cell 2 /hpf (0-3) 01/17/18 12:10 Urine Bacteria Occ (<OCC) H 01/17/18 12:10 IgE 108 kU/L (<gs=177) 01/18/18 12:02 Influenza Typ A,B (EIA) Negative for flu a/b (NEGATIVE) 01/17/18 09:03 Mycoplasma pneumon IgG 0.97 (<=0.90) H 01/18/18 12:02 Mycoplasma pneumon IgM 33 U/mL (<770) 01/18/18 12:02 Attending/Attestation - Attestation I have personally seen and examined this patient.: Yes I have fully participated in the care of the patient.: Yes I have reviewed all pertinent clinical information, including history, physical exam and plan: Yes
== END 2018-01-24 14:09 | disposition home or self-care (01) | DRG 191 ==
LOC: H.ER 08:30 → H.TEL 12:48 → UNDOADMOB 12:48 → H.ERHOLD 12:48 → INTOOBSV 12:48 → OBSVTOIN 12:48 → H.ERHOLD 13:59 → H.TEL 13:59 → OBSVTOIN 01-19 10:02
PROVIDERS: ADMIT Family Medicine; ATTEND Family Medicine
PROC: 3E0F7GC Introduction of Other Therapeutic Substance into Respiratory Tract, Via Natural or Artificial Opening (ICD-10-PCS; principal; 2018-01-18)
PROC: 3E0234Z Introduction of Serum, Toxoid and Vaccine into Muscle, Percutaneous Approach (ICD-10-PCS; 2018-01-18)
DX: J44.0 Chronic obstructive pulmonary disease with (acute) lower respiratory infection (principal); I47.1 Supraventricular tachycardia; M81.0 Age-related osteoporosis without current pathological fracture; Z87.310 Personal history of (healed) osteoporosis fracture; N28.89 Other specified disorders of kidney and ureter; Z79.51 Long term (current) use of inhaled steroids; Z79.82 Long term (current) use of aspirin; Z79.83 Long term (current) use of bisphosphonates; Z80.1 Family history of malignant neoplasm of trachea, bronchus and lung; Z81.8 Family history of other mental and behavioral disorders; Z95.3 Presence of xenogenic heart valve; Z96.641 Presence of right artificial hip joint; H26.9 Unspecified cataract; E89.0 Postprocedural hypothyroidism; Z87.01 Personal history of pneumonia (recurrent); K29.70 Gastritis, unspecified, without bleeding; R06.03 Acute respiratory distress; Z23 Encounter for immunization; B00.1 Herpesviral vesicular dermatitis; E78.00 Pure hypercholesterolemia, unspecified; E78.5 Hyperlipidemia, unspecified; I10 Essential (primary) hypertension; I35.0 Nonrheumatic aortic (valve) stenosis; I73.9 Peripheral vascular disease, unspecified; I83.92 Asymptomatic varicose veins of left lower extremity; J20.9 Acute bronchitis, unspecified; J38.01 Paralysis of vocal cords and larynx, unilateral

== ENCOUNTER 2018-02-24 09:36 | Emergency (ER) | payer MEDICARE ==
[2018-02-24 10:14] VITALS: BP 138/69; PULSE 59; RESP 20; TEMP 97.7; O2SAT 98
[2018-02-24 10:15] VITALS: BMI 25.2
--- NOTE | 2018-02-24 10:47 | ED PDOC ---
HPI: Skin/Bite Injury Time Seen by Provider: 02/24/18 10:18 Chief Complaint (Nursing): Abnormal Skin Integrity Chief Complaint (Provider): Shingles History Per: Patient, Family History/Exam Limitations: no limitations (Pt presents to the ED with her son complaiing of a rash that looks like "needle ca" lining her back on the left side only. The patient states that the rash is not only itchy, but it is painful as well. The patient did have chicken pox as a child and complains of no other symptoms, denies fever, NVD, dizziness, palpations, shortness of breath or the like) Past Medical History Vital Signs: Last Vital Signs Temp 97.7 F 02/24/18 10:14 Pulse 59 L 02/24/18 10:14 Resp 20 02/24/18 10:14 BP 138/69 02/24/18 10:14 Pulse Ox 98 02/24/18 10:14 - Medical History PMH: Bronchitis, CAD, HTN, Hypercholesterolemia, Hypothyroidism, Osteoporosis (with fracture) Denies: HIV, Chronic Kidney Disease - Family History Family History: States: Unknown Family Hx - Home Medications Home Medications: Ambulatory Orders Medication Instructions Recorded Levothyroxine [Synthroid] 100 mcg PO DAILY 11/07/14 Omeprazole [Prilosec] 20 mg PO DAILY 11/07/14 Simvastatin 10 mg PO HS 11/07/14 Calcitriol 0.25 mcg PO Q8 04/06/17 Calcium Carbonate/Vitamin D3 1 each PO DAILY 04/06/17 [Calcium 500 + Vit D Caplet] Multivitamin [Multivitamins] 1 cap PO DAILY 04/06/17 Aspirin [Ecotrin] 81 mg PO DAILY #30 tabec 04/11/17 Alendronate [Fosamax] 70 mg PO QWK 01/17/18 Gabapentin [Neurontin] 300 mg PO Q12 01/17/18 Levalbuterol Tartrate [Xopenex Hfa] 2 puff IH Q6 PRN 01/17/18 Loratadine [Claritin] 10 mg PO DAILY PRN 01/17/18 Metoprolol Tartrate [Lopressor] 25 mg PO DAILY 01/17/18 Benzonatate [Tessalon Perles] 200 mg PO Q8 #15 sgl 01/24/18 Losartan [Cozaar] 25 mg PO DAILY #30 tab 01/24/18 guaiFENesin [Robitussin] 100 mg PO Q6 PRN #20 udc 01/24/18 predniSONE [predniSONE Tab] 10 mg PO BID tab 01/24/18 Acyclovir 400 mg PO 5XD #40 tablet 02/24/18 - Allergies Allergies/Adverse Reactions: Allergies Allergy/AdvReac Type Severity Reaction Status Date / Time No Known Allergies Allergy Verified 01/17/18 08:35 Review of Systems Skin: Positive for: Rash, Lesions Physical Exam - Reviewed Nursing Documentation Reviewed: Yes Vital Signs Reviewed: Yes - Physical Exam Appears: Positive for: Well, Non-toxic. Negative for: No Acute Distress Head Exam: Positive for: ATRAUMATIC Skin: Positive for: Rash (left sided posterior rash along the T4/T5 dermatome from the left back to the lateral breast.) Eye Exam: Positive for: Normal appearance ENT: Positive for: Normal ENT Inspection Neck: Positive for: Normal, Painless ROM, Supple. Negative for: Decreased ROM Cardiovascular/Chest: Positive for: Regular Rate, Rhythm Respiratory: Positive for: Normal Breath Sounds Pulses-Carotid (L): 2+ Pulses-Carotid (R): 2+ Pulses-Radial (L): 2+ Pulses-Radial (R): 2+ - ECG O2 Sat by Pulse Oximetry: 98 Medical Decision Making Medical Decision Making: Clinical shingles Will treat in ED with 400mg acyclovir and rx 400mg acyclovir 5xday for 10 days Additional Rx will be for aluminum acetate/calamine lotion Follow up with Dr Batres (her PMD) in three to four days Disposition - Clinical Impression Clinical Impression: Shingles - Patient ED Disposition Is Patient to be Admitted: No Doctor Will See Patient In The: Office Counseled Patient/Family Regarding: Studies Performed, Diagnosis, Need For Followup, Rx Given - Disposition Disposition: Routine/Home Disposition Time: 11:11 Condition: STABLE Additional Instructions: follow up with your pmd, Dr Batres, in four to five days Prescriptions: Acyclovir 400 mg PO 5XD #40 tablet Instructions: Shingles, Shingles (DC) Forms: Real Time Wine (Divehi)
== END 2018-02-24 11:45 | disposition home or self-care (01) ==
LOC: H.ER 09:36
DX: B02.9 Zoster without complications (principal); I10 Essential (primary) hypertension; M81.0 Age-related osteoporosis without current pathological fracture; E03.9 Hypothyroidism, unspecified; Z79.82 Long term (current) use of aspirin